=== PATIENT | female | born 1970 | race Caucasian/White ===

== ENCOUNTER 2022-12-17 06:26 | Day surgery (SDC) | payer OTHER, SELFPAY ==
[2022-12-17 06:47] VITALS: BP 143/93; PULSE 62; RESP 20; TEMP 36; O2SAT 97; BMI 47.3
[2022-12-17] MEDS: LACTATED RINGER'S SOLUTION 1,000 ML 50 ML IV (07:10)
--- NOTE | 2022-12-17 07:11 | P.GSPRC_ITS ---
Date of procedure: 12/17/22 Pre-op diagnosis: rectal bleeding Procedure: Colonoscopy with hot snare biopsy ascending colon for polyp less than 5 mm Colonoscopy with biopsy splenic flexure and descending colon rule out colitis Findings: colon polyp descending colon less than 5 mm Diverticulosis of transverse colon minimal Rule out colitis splenic flexure and descending colon Anesthesia: [facility] Surgeon: Gary Cannon Procedure Summary: Patient was taken to the endoscopy suite and given anesthesia by the deputy commonwealth's attorney. The patient was placed in left lateral recumbent position and rectal digital exam was performed. Sphincter tone was found to be normal. No rectal masses were appreciated. The Olympus video colonoscope was advanced under direct visualization into the rectum, sigmoid, descending, transverse, ascending colon to ileocecal valve where the appendiceal lumen was visualized. The scope was slowly withdrawnand biopsies were taken in the splenic flexure and descending colon area to rule out colitis. pictures were taken. She had one single diverticulum in the transverse colon.the scope was then withdrawn and the descending colon there was a small polyp which was hot snared and retrieved and hemostasis maintained. The rest the colon was normal. The scope was retroflexed in the rectum and she had small internal hemorrhoids noted. Specimen was sent to pathology. Patient will need repeat colonoscopy in five years for surveillance pending pathology of the polyp. She may follow-up in the office when necessary. We will call with her results. Indications for Procedure: rectal bleeding Estimated blood loss (mL): 0 Complications: No Condition: stable Disposition: PACU
[2022-12-17 07:58] VITALS: BP 119/83; PULSE 71; RESP 20; TEMP 36.2; O2SAT 94
[2022-12-17 08:18] VITALS: BP 131/85; PULSE 60; RESP 18; O2SAT 99
[2022-12-17 08:28] VITALS: BP 120/86; PULSE 52; RESP 18; O2SAT 95
== END 2022-12-17 08:29 | disposition home or self-care (01) ==
PROVIDERS: PCP Physician Assistant; Visit Provider Surgery
PROC: (CPT 811; principal; 2022-12-17 07:30)
DX: K63.5 Polyp of colon (principal); K62.5 Hemorrhage of anus and rectum; K64.8 Other hemorrhoids; E66.01 Morbid (severe) obesity due to excess calories; Z68.42 Body mass index [BMI] 45.0-49.9, adult; Z98.84 Bariatric surgery status; Z96.651 Presence of right artificial knee joint; F90.9 Attention-deficit hyperactivity disorder, unspecified type; F41.9 Anxiety disorder, unspecified; M19.90 Unspecified osteoarthritis, unspecified site; J44.9 Chronic obstructive pulmonary disease, unspecified; Z85.850 Personal history of malignant neoplasm of thyroid; E89.0 Postprocedural hypothyroidism; I50.9 Heart failure, unspecified; F32.A Depression, unspecified; H91.90 Unspecified hearing loss, unspecified ear; Z86.14 Personal history of Methicillin resistant Staphylococcus aureus infection; G62.9 Polyneuropathy, unspecified; G47.33 Obstructive sleep apnea (adult) (pediatric); Z86.73 Personal history of transient ischemic attack (TIA), and cerebral infarction without residual deficits; Z79.899 Other long term (current) drug therapy; F17.210 Nicotine dependence, cigarettes, uncomplicated
CPT/HCPCS: 45380; 45385; 36415; 88305; J2704

== ENCOUNTER 2022-12-30 11:04 | Outpatient (OUT) | payer OTHER, SELFPAY ==
--- NOTE | 2022-12-30 11:10 | MM_ITS ---
Patient: GABI COOMBS Exam Date: 12/30/2022 : 1970 Gender:F Ordering : MR. Joey Zamudio PA-C Admission #: [id number] Family : Order #: [id number] CLICK HERE TO VIEW EXAM RADIOLOGY REPORT PROCEDURE: MM TOMOSYNTHESIS SCREENING BI COMPARISON: None. INDICATIONS: Screening mammogram Z12.31 Calculator Name NCI Breast Cancer Risk Assessment Tool 5 Year Breast Cancer Risk 1.60% Lifetime Breast Cancer Risk 11.40% Personal Breast Cancer No Personal Ovarian Cancer No Treatments None Family Cancers None LOCATION: [facility] BREAST COMPOSITION: Scattered areas fibroglandular density. FINDINGS: DIAGNOSTIC CATEGORY 1--NEGATIVE. RIGHT BREAST: No significant suspicious finding. LEFT BREAST: No significant suspicious finding. RECOMMENDATIONS: ROUTINE MAMMOGRAM AND CLINICAL EVALUATION IN 12 MONTHS. PLEASE NOTE: A NORMAL MAMMOGRAM DOES NOT EXCLUDE THE POSSIBILITY OF BREAST CANCER. A CLINICALLY SUSPICIOUS PALPABLE LUMP SHOULD BE BIOPSIED. Dictated by: Oli Suárez M.D. on 12/30/2022 at 13:11 Approved by: Oli Suárez M.D. on 12/30/2022 at 13:13
[2022-12-30 12:19] LABS: Estimated Average Glucose 80 mg/dL; Glycohemoglobin A1C 4.4 % (4.5-6.2)
[2022-12-30 12:43] LABS: Basophils Percent Auto 0.3 % (0.2-2.0); Eosinophils Absolute Auto 0.1 10^3/uL (0.0-0.7); Eosinophils Percent Auto 1.6 % (0.9-7.0); Hematocrit 47.7 % (36.0-48.0); Hemoglobin 15.2 g/dL (12.0-16.0); Immature Granulocytes Abs Auto 0.04 10^3/uL (0.00-0.03); Immature Granulocytes Pct Auto 0.6 % (0.0-0.5); Lymphocytes Absolute Auto 2.2 10^3/uL (1.2-3.8); Lymphocytes Percent Auto 33.2 % (20.5-60.0); Mean Corpuscular HGB Conc 31.9 g/dL (29.9-35.2); Mean Corpuscular Hemoglobin 30.6 pg (26.7-34.0); Mean Corpuscular Volume 96.2 fL (81.0-99.0); Mean Platelet Volume 11.4 fL (9.5-13.5); Monocytes Absolute Auto 0.5 10^3/uL (0.3-0.8); Neutrophils Absolute Auto 3.8 10^3/uL (1.4-6.5); Neutrophils Percent Auto 57.3 % (43.0-75.0); Platelet Count 186 10^3/uL (150-450); Red Blood Count 4.96 10^6/uL (4.20-5.40); Red Cell Distribution Width 13.7 % (11.0-15.0); White Blood Count 6.7 10^3/uL (4.0-11.0)
[2022-12-30 13:20] LABS: Chol HDL Ratio 3.5; Cholesterol 172 mg/dL (<=200); HDL Cholesterol 49 mg/dL (40-60); LDL Cholesterol Calculated 98.8 mg/dL; Thyroid Stimulating Hormone 13.066 uIU/mL (0.358-3.740); Triglycerides 121 mg/dL (<=150); VLDL CHOLESTEROL 24.2 mg/dL
[2022-12-31 05:07] LABS: HIV Ab/p24 Ag Screen Non Reactive (Non Reactive)
== END 2022-12-30 11:05 ==
LOC: MAMMO 11:04
PROVIDERS: PCP Physician Assistant; Visit Provider Physician Assistant
DX: Z00.00 Encounter for general adult medical examination without abnormal findings (principal); Z11.4 Encounter for screening for human immunodeficiency virus [HIV]; Z13.6 Encounter for screening for cardiovascular disorders; Z12.31 Encounter for screening mammogram for malignant neoplasm of breast
CPT/HCPCS: 36415; 77063; 77067; 80061; 83036; 84443; 85025; 87389

== ENCOUNTER 2023-09-22 10:19 | Outpatient (OUT) | payer OTHER, SELFPAY ==
--- NOTE | 2023-09-22 10:29 | US_ITS ---
The [address] [address] Patient Name: GABI COOMBS MRN: [id number] date: 1970 Sex: F Assigned Patient Location: US Current Patient Location: Accession/Order Number: [id number] Exam Date: 09/22/2023 10:40 Report Date: 09/22/2023 11:27 At the request of: CATHY HARDIN Procedure: US extremity nonvascular RT EXAM: US extremity nonvascular RT HISTORY: Skin Lump Of Right Arm R22.31 COMPARISON: None. TECHNIQUE: Grayscale and color ultrasound FINDINGS: Ultrasound of the area the patient's palpable abnormality, posterior arm demonstrates normal skin, subcutaneous fat and muscle. No focal ultrasound abnormality US/US extremity nonvascular RT IMPRESSION: No ultrasound abnormality to correspond to the patient's palpable abnormality Electronically authenticated by: MAGNO LOGAN Date: 09/22/2023 11:27
== END 2023-09-22 10:20 | disposition home or self-care (01) ==
LOC: US 10:22
PROVIDERS: PCP Physician Assistant; Visit Provider Physician Assistant
DX: R22.31 Localized swelling, mass and lump, right upper limb (principal)
CPT/HCPCS: 76882

== ENCOUNTER 2023-10-02 14:30 | Emergency (ER) | payer OTHER, SELFPAY ==
[2023-10-02 14:41] VITALS: BP 139/95; PULSE 74; RESP 18; TEMP 36.5; O2SAT 95; BMI 51.4
--- NOTE | 2023-10-02 15:11 | ED_ITS ---
HPI - Abdominal Pain General Chief Complaint: Abdominal Pain Stated Complaint: ABDOMINAL PAIN Time Seen by Provider: 10/02/23 15:05 Source: patient Mode of arrival: walk-in History of Present Illness HPI narrative: Patient is a 53-year-old female who presents to the emergency department with concern for appendicitis from her PCP office. She was instructed to come to the emergency department about 6 hours ago after being evaluated in the office, but she states she wanted to wait for her significant other to get home so they would not have to leave a car at the hospital if you keep me . She states for the last week she has had pain in the right lower quadrant without radiation. She has chronic back pain that is not worse or different today. She has not had any fevers. She reports hot and cold chills. No urinary symptoms or diarrhea. She denies any episodes of vomiting. She has had previous gastric bypass as well as previous surgery. No medications taken prior to arrival. Related Data Home Medications ?Medication ?Instructions ?Recorded ?Confirmed Cholecalciferol 2,000 unit PO DAILY 12/12/22 12/17/22 albuterol 90 mcg/actuation aerosol 90 mcg inhalation .every 6 hours 12/12/22 12/17/22 inhaler PRN shortness of breath or wheezing dicyclomine 20 mg tablet 20 mg PO DAILY 12/12/22 12/17/22 doxepin 10 mg capsule 10 mg PO DAILY 12/12/22 12/17/22 gabapentin 600 mg tablet 600 mg PO TID 12/12/22 12/17/22 hydroxyzine pamoate 25 mg capsule 25 mg PO DAILY 12/12/22 12/17/22 (Vistaril) levothyroxine 200 mcg tablet 200 mcg PO DAILY 12/12/22 12/17/22 (Levo-T) mometasone-formoterol HFA 200 2 inh inhalation Q12H 12/12/22 12/17/22 mcg-5 mcg/actuation aerosol inhaler (Dulera) multivitamin 1 tab PO DAILY 12/12/22 12/17/22 oxybutynin chloride 15 mg 15 mg PO DAILY 12/12/22 12/17/22 tablet,extended release 24 hr sertraline 50 mg tablet 50 mg PO DAILY 12/12/22 12/17/22 sumatriptan succinate 6 mg/0.5 mL 6 mg subcut ONCE PRN migraine 12/12/22 12/17/22 subcutaneous syringe headache tiotropium bromide 2.5 2 inh inhalation DAILY 12/12/22 12/17/22 mcg/actuation mist for inhalation (Spiriva Respimat) vitamin B complex PO DAILY 12/12/22 Previous Rx's ?Medication ?Instructions ?Recorded hyoscyamine sulfate 0.125 mg 0.125 mg PO Q6H PRN abdominal pain 10/02/23 tablet (Levsin) #12 tabs Allergies Allergy/AdvReac Type Severity Reaction Status Date / Time Bleach (Sodium Hypochlorite) Allergy Severe Difficulty Verified 12/17/22 07:04 Breathing adhesive tape Allergy Verified 12/17/22 07:04 amoxicillin Allergy Rash Verified 12/17/22 07:04 ibuprofen [From Motrin] Allergy Verified 12/17/22 07:04 ciprofloxacin AdvReac Vomiting Verified 12/17/22 07:04 ketorolac [From Toradol] AdvReac Vomiting Verified 12/17/22 07:04 Review of Systems ROS Constitutional Reports: chills; Denies: fever Ears, nose, mouth, and throat Denies: throat pain or nasal congestion Cardiovascular Denies: chest pain Respiratory Denies: shortness of breath or cough Gastrointestinal Reports: abdominal pain; Denies: nausea, vomiting or diarrhea Genitourinary Denies: painful urination Musculoskeletal Reports: back pain Integumentary/Breast Denies: rash Neurological Denies: headache Hematologic/Lymphatic Denies: easy bruising or easy bleeding [facility] Medical History (Updated 10/02/23 @ 17:45 by GUILLERMO Guzman) Fusion of lumbar spine ?M43.26 - Fusion of spine, lumbar region (ICD-10) Memory loss ?R41.3 - Other amnesia (ICD-10) TIA (transient ischemic attack) ?G45.9 - Transient cerebral ischemic attack, unspecified (ICD-10) Sleep apnea ?G47.30 - Sleep apnea, unspecified (ICD-10) STD (sexually transmitted disease) ?A64 - Unspecified sexually transmitted disease (ICD-10) Back injury ?S39.92XA - Unspecified injury of lower back, initial encounter (ICD-10) MRSA (methicillin resistant Staphylococcus aureus) infection ?A49.02 - Methicillin resistant Staphylococcus aureus infection, unspecified site (ICD-10) Menopause ?Z78.0 - Asymptomatic menopausal state (ICD-10) Neuropathy ?G62.9 - Polyneuropathy, unspecified (ICD-10) Personality disorder ?F60.9 - Personality disorder, unspecified (ICD-10) Disorder of teeth and supporting structures ?K08.9 - Disorder of teeth and supporting structures, unspecified (ICD-10) ADHD ?F90.9 - Attention-deficit hyperactivity disorder, unspecified type (ICD-10) Hearing loss ?H91.90 - Unspecified hearing loss, unspecified ear (ICD-10) Rectal bleeding ?K62.5 - Hemorrhage of anus and rectum (ICD-10) Migraine ?G43.909 - Migraine, unspecified, not intractable, without status migrainosus (ICD-10) Malignant tumor of thyroid gland ?C73 - Malignant neoplasm of thyroid gland (ICD-10) Enlarged liver ?R16.0 - Hepatomegaly, not elsewhere classified (ICD-10) Hypothyroidism ?E03.9 - Hypothyroidism, unspecified (ICD-10) Depression ?F32.A - Depression, unspecified (ICD-10) Congestive heart failure ?I50.9 - Heart failure, unspecified (ICD-10) Carpal tunnel syndrome ?G56.00 - Carpal tunnel syndrome, unspecified upper limb (ICD-10) Cardiomyopathy ?I42.9 - Cardiomyopathy, unspecified (ICD-10) COPD (chronic obstructive pulmonary disease) ?J44.9 - Chronic obstructive pulmonary disease, unspecified (ICD-10) Back pain ?M54.9 - Dorsalgia, unspecified (ICD-10) Asthma ?J45.909 - Unspecified asthma, uncomplicated (ICD-10) Arthritis ?M19.90 - Unspecified osteoarthritis, unspecified site (ICD-10) Anxiety ?F41.9 - Anxiety disorder, unspecified (ICD-10) Anemia ?D64.9 - Anemia, unspecified (ICD-10) Surgical History (Updated 12/12/22 @ 11:40 by Kyung Hung) H/O total thyroidectomy ?E89.0 - Postprocedural hypothyroidism (ICD-10) History of tonsillectomy ?Z90.89 - Acquired absence of other organs (ICD-10) S/P lumpectomy of breast ?Z98.890 - Other specified postprocedural states (ICD-10) H/O hemorrhoidectomy ?Z98.890 - Other specified postprocedural states (ICD-10) History of endometrial ablation ?Z98.890 - Other specified postprocedural states (ICD-10) Previous section ?Z98.891 - History of uterine scar from previous surgery (ICD-10) History of gastric bypass ?Z98.84 - Bariatric surgery status (ICD-10) History of tubal ligation ?Z98.51 - Tubal ligation status (ICD-10) History of arthroplasty of right knee ?Z96.651 - Presence of right artificial knee joint (ICD-10) Family History (Updated 12/12/22 @ 10:40 by Kyung Hung) Other Heart disease Social History Within the past year, how often did you have a drink containing alcohol: never Score interpretation: A score less than 3 is consistent with normal alcohol consumption. Smoking status: Current every day smoker Highest level of school completed/degree received: high school graduate Exam Narrative Exam Narrative: Gen.: Awake, alert, in no distress Head: Normocephalic, atraumatic ENT: Moist mucous membranes Respiratory: No respiratory distress, lungs clear bilaterally Cardio: Regular rate and rhythm Gastrointestinal: Abdomen is soft, nondistended and Obese, tender to palpation in the right lower quadrant with no guarding or rebound Extremities: Moves extremities equally Psych: Normal mood and affect Neuro: No focal neuro deficit Skin: Warm, dry, intact Constitutional Vital Signs, click to edit/add: Last Vital Signs Temp 97.7 F 10/02/23 14:41 Pulse 74 10/02/23 14:41 Resp 18 10/02/23 14:41 BP 139/95 H 10/02/23 14:41 Pulse Ox 95 10/02/23 14:41 O2 Del Method Room Air 10/02/23 14:41 Course Vital Signs Vital signs: Vital Signs Temperature 97.7 F 10/02/23 14:41 Pulse Rate 74 10/02/23 14:41 Respiratory Rate 18 10/02/23 14:41 Blood Pressure 139/95 H 10/02/23 14:41 Pulse Oximetry 95 10/02/23 14:41 Oxygen Delivery Method Room Air 10/02/23 14:41 Temperature 97.7 F 10/02/23 14:41 Pulse Rate 74 10/02/23 14:41 Respiratory Rate 18 10/02/23 14:41 Blood Pressure 139/95 H 10/02/23 14:41 Pulse Oximetry 95 10/02/23 14:41 Oxygen Delivery Method Room Air 10/02/23 14:41 MDM - Abdominal Pain MDM Narrative Medical decision making narrative: Patient medicated with IV fluids, pain medication and nausea medication. Labs show no evidence of leukocytosis or other acute abnormalities. Urine specimen is negative and CT of the abdomen and pelvis shows the patient has no evidence of acute abnormality or appendicitis. She is discharged home to follow-up with PCP. Return to the ER if symptoms change or worsen Medical Records Attestation: I reviewed the patient's medical records. Lab Data Attestation: I reviewed the patient's lab results. Labs: Lab Results 10/02/23 10/02/23 Range/Units 15:12 17:05 WBC 9.2 (4.0-11.0) 10^3/uL RBC 4.60 (4.20-5.40) 10^6/uL Hgb 14.2 (12.0-16.0) g/dL Hct 45.6 (36.0-48.0) % MCV 99.1 H (81.0-99.0) fL MCH 30.9 (26.7-34.0) pg MCHC 31.1 (29.9-35.2) g/dL RDW 14.5 (11.0-15.0) % Plt Count 209 (150-450) 10^3/uL MPV 11.5 (9.5-13.5) fL Neut % (Auto) 65.5 (43.0-75.0) % Lymph % (Auto) 27.7 (20.5-60.0) % [place] % (Auto) 4.8 (1.7-12.0) % Eos % (Auto) 1.3 (0.9-7.0) % Baso % (Auto) 0.2 (0.2-2.0) % Neut # (Auto) 6.0 (1.4-6.5) 10^3/uL Lymph # (Auto) 2.6 (1.2-3.8) 10^3/uL [place] # (Auto) 0.4 (0.3-0.8) 10^3/uL Eos # (Auto) 0.1 (0.0-0.7) 10^3/uL Baso # (Auto) 0.0 (0.0-0.1) 10^3/uL Abs Immat Gran (auto) 0.05 H (0.00-0.03) 10^3/uL Imm/Tot Granulo (auto) 0.5 (0.0-0.5) % Sodium 141 (136-145) mmol/L Potassium 3.7 (3.5-5.1) mmol/L Chloride 106 (98-107) mmol/L Carbon Dioxide 28.7 (21.0-32.0) mmol/L Anion Gap 10.0 BUN 18.0 (7.0-18.0) mg/dL Creatinine 0.96 (0.55-1.02) mg/dL Est GFR ( Amer) >60 (>=60) Est GFR (Non-Af Amer) >60 (>=60) BUN/Creatinine Ratio 18.8 Glucose 96 (74-106) mg/dL Lactate 1.3 (0.4-2.0) mmol/L Calcium 8.2 L (8.5-10.1) mg/dL Total Bilirubin 0.3 (0.2-1.0) mg/dL AST 18 (15-37) U/L ALT 22 (14-59) U/L Alkaline Phosphatase 126 H (46-116) U/L Troponin I High Sens <4.0 L (4.0-51.3) pg/mL Total Protein 7.0 (6.4-8.2) g/dL Albumin 3.5 (3.4-5.0) g/dL Globulin 3.5 g/dL Albumin/Globulin Ratio 1.0 Lipase 20.0 (16.0-77.0) U/L Serum HCG, Qual Negative (NEGATIVE) Urine Color Yellow (YELLOW) Urine Clarity Clear (CLEAR) Urine pH 5.5 (5.0-9.0) Ur Specific [place] 1.015 (1.005-1.025) Urine Protein Negative (NEG/TRACE) mg/dL Urine Glucose (UA) Negative (NEGATIVE) mg/dL Urine Ketones Negative (NEGATIVE) mg/dL Urine Occult Blood Negative (NEGATIVE) Urine Nitrite Negative (NEGATIVE) Urine Bilirubin Negative (NEGATIVE) Urine Urobilinogen 0.2 (0.2-1.0) EU/dL Ur Leukocyte Esterase Negative (NEGATIVE) Imaging Data CT scan - abdomen: Attestation: I have reviewed the pertinent imaging results. Radiologist's impression: ITS Impressions Abdomen/Pelvis CT 10/02/23 16:42 IMPRESSION: No acute findings. No findings of appendicitis. Indeterminate 2.4 cm right adrenal nodule, most likely adenoma. Suspect cirrhotic morphology. Electronically authenticated by: SHAYLEE RUBIO Date: 10/02/2023 17:09 Discharge Plan Discharge Stand Alone Forms: Portal Instructions Chief Complaint: Abdominal Pain Clinical Impression: Abdominal pain Patient Disposition: Home, Self-Care Time of Disposition Decision: 17:44 Condition: Good Prescriptions / Home Meds: New hyoscyamine sulfate [Levsin] 0.125 mg tablet 0.125 mg PO Q6H PRN (Reason: abdominal pain) Qty: 12 0RF No Action albuterol 90 mcg/actuation aerosol 90 mcg inhalation .every 6 hours PRN (Reason: shortness of breath or wheezing) sertraline 50 mg tablet 50 mg PO DAILY oxybutynin chloride 15 mg tablet extended release 24hr 15 mg PO DAILY levothyroxine [Levo-T] 200 mcg tablet 200 mcg PO DAILY hydroxyzine pamoate [Vistaril] 25 mg capsule 25 mg PO DAILY Spiriva Respimat 2.5 mcg/actuation mist 2 inh inhalation DAILY vitamin B complex [B Complex-Vitamin B12] PO DAILY Cholecalciferol 2,000 unit PO DAILY dicyclomine 20 mg tablet 20 mg PO DAILY doxepin 10 mg capsule 10 mg PO DAILY Dulera 200-5 mcg/actuation HFA aerosol inhaler 2 inh inhalation Q12H gabapentin 600 mg tablet 600 mg PO TID multivitamin Tablet 1 tab PO DAILY sumatriptan succinate 6 mg/0.5 mL syringe 6 mg subcut ONCE PRN (Reason: migraine headache) Patient Comments: may repeat dose in 1 hour if needed Print Language: Montenegrin Instructions: Acute Abdominal Pain (ED) Referrals: Joey Zamudio [Primary Care Provider] - 1 week Discharge Date/Time: 10/02/23 17:50
[2023-10-02] MEDS: HYDROMORPHONE HCL 1 MG/ML CARTRIDGE IVP (15:20)
[2023-10-02] MEDS: ONDANSETRON PF 4 MG/2 ML VIAL IV (15:20)
[2023-10-02] MEDS: 0.9 % SODIUM CHLORIDE 1,000 ML 999 ML IV (15:21)
[2023-10-02 15:47] LABS: Alanine Aminotransferase 22 U/L (14-59); Albumin Level 3.5 g/dL (3.4-5.0); Alkaline Phosphatase 126 U/L (46-116); Aspartate Amino Transferase 18 U/L (15-37); BUN Creatinine Ratio 18.8; Bilirubin Total 0.3 mg/dL (0.2-1.0); Calcium 8.2 mg/dL (8.5-10.1); Carbon Dioxide 28.7 mmol/L (21.0-32.0); Chloride 106 mmol/L (98-107); Estimated GFR (African America >60 (>=60); Estimated GFR (Non-African Ame >60 (>=60); Globulin 3.5 g/dL; Glucose 96 mg/dL (74-106); Lactate/Lactic Acid 1.3 mmol/L (0.4-2.0); Potassium 3.7 mmol/L (3.5-5.1); Sodium 141 mmol/L (136-145); Troponin I High Sensitivity <4.0 pg/mL (4.0-51.3)
[2023-10-02 15:48] LABS: HCG Qualitative NEGATIVE (NEGATIVE)
[2023-10-02 16:12] LABS: Basophils Percent Auto 0.2 % (0.2-2.0); Eosinophils Absolute Auto 0.1 10^3/uL (0.0-0.7); Eosinophils Percent Auto 1.3 % (0.9-7.0); Hematocrit 45.6 % (36.0-48.0); Hemoglobin 14.2 g/dL (12.0-16.0); Immature Granulocytes Abs Auto 0.05 10^3/uL (0.00-0.03); Immature Granulocytes Pct Auto 0.5 % (0.0-0.5); Lymphocytes Absolute Auto 2.6 10^3/uL (1.2-3.8); Lymphocytes Percent Auto 27.7 % (20.5-60.0); Mean Corpuscular HGB Conc 31.1 g/dL (29.9-35.2); Mean Corpuscular Hemoglobin 30.9 pg (26.7-34.0); Mean Corpuscular Volume 99.1 fL (81.0-99.0); Mean Platelet Volume 11.5 fL (9.5-13.5); Monocytes Absolute Auto 0.4 10^3/uL (0.3-0.8); Monocytes Percent Auto 4.8 % (1.7-12.0); Neutrophils Percent Auto 65.5 % (43.0-75.0); Platelet Count 209 10^3/uL (150-450); Red Cell Distribution Width 14.5 % (11.0-15.0); White Blood Count 9.2 10^3/uL (4.0-11.0)
--- NOTE | 2023-10-02 16:42 | CT_ITS ---
[address] [address] Patient Name: GABI COOMBS MRN: [id number] date: 1970 Sex: F Assigned Patient Location: ER Current Patient Location: ER Accession/Order Number: [id number] Exam Date: 10/02/2023 16:42 Report Date: 10/02/2023 17:09 At the request of: TIFFANY CEBALLOS Procedure: CT abdomen pelvis w con EXAMINATION: CT abdomen pelvis w con, 10/02/2023 1:42 PM PDT HISTORY: acute appendicitis COMPARISON: None. TECHNIQUE: CT scan of the abdomen and pelvis was performed with IV contrast. CT dose reduction technique was used, including Automated Exposure Control. FINDINGS: Lung: No significant finding. Liver: Suspect subtle contour nodularity. Tiny left hepatic lobe hypodensity, most likely cyst. Gallbladder: Absent. Spleen: No significant finding. Pancreas: No significant finding. Adrenal glands: 2.4 cm right adrenal nodule, indeterminate. Kidneys, ureters and bladder: No hydronephrosis. Bladder is unremarkable. Bowel: Surgical changes from gastric bypass. No focal inflammatory change. No evidence of bowel obstruction. Colonic diverticulosis without diverticulitis. No findings of appendicitis. Peritoneum/retroperitoneum: No significant finding. Lymph nodes: No significant finding. Vessels: No significant finding. Body wall: Surgical changes. Reproductive: No significant finding. Bones: L4-L5 fusion hardware. CT/CT abdomen pelvis w con IMPRESSION: No acute findings. No findings of appendicitis. Indeterminate 2.4 cm right adrenal nodule, most likely adenoma. Suspect cirrhotic morphology. Electronically authenticated by: SHAYLEE RUBIO Date: 10/02/2023 17:09
[2023-10-02 17:39] LABS: Bilirubin Urine NEGATIVE (NEGATIVE); Blood Urine NEGATIVE (NEGATIVE); Clarity Urine CLEAR (CLEAR); Color Urine YELLOW (YELLOW); Glucose Urine UA NEGATIVE (NEGATIVE); Ketones Urine NEGATIVE (NEGATIVE); Leukocyte Esterase Urine NEGATIVE (NEGATIVE); Nitrite Urine NEGATIVE (NEGATIVE); Protein Urine NEGATIVE (NEG/TRACE); Specific Gravity Urine 1.015 (1.005-1.025); Urobilinogen Urine 0.2 EU/dL (0.2-1.0); pH Urine 5.5 (5.0-9.0)
[2023-10-02 17:40] LABS: Urine Microscopic Indicated NO
== END 2023-10-02 17:50 | disposition home or self-care (01) ==
PROVIDERS: Physician Assistant; Emergency Provider Emergency Medicine; PCP Physician Assistant
DX: R10.9 Unspecified abdominal pain (principal); E89.0 Postprocedural hypothyroidism; F60.9 Personality disorder, unspecified; F90.9 Attention-deficit hyperactivity disorder, unspecified type; H91.90 Unspecified hearing loss, unspecified ear; F17.210 Nicotine dependence, cigarettes, uncomplicated; J44.9 Chronic obstructive pulmonary disease, unspecified; F32.A Depression, unspecified; I50.9 Heart failure, unspecified; M19.90 Unspecified osteoarthritis, unspecified site; F41.9 Anxiety disorder, unspecified; Z98.84 Bariatric surgery status; Z79.899 Other long term (current) drug therapy; Z79.890 Hormone replacement therapy; Z98.1 Arthrodesis status; Z86.73 Personal history of transient ischemic attack (TIA), and cerebral infarction without residual deficits; Z86.14 Personal history of Methicillin resistant Staphylococcus aureus infection; Z85.850 Personal history of malignant neoplasm of thyroid; Z98.891 History of uterine scar from previous surgery; Z98.890 Other specified postprocedural states; Z90.89 Acquired absence of other organs
CPT/HCPCS: 36415; 74177; 80053; 81003; 83605; 83690; 84484; 84703; 85025; 96374; 96375; 99285; J1170; Q9966; Q9967

== ENCOUNTER 2023-11-24 16:20 | Outpatient (OUT) | payer OTHER, SELFPAY ==
[2023-11-24 16:43] LABS: Hematocrit 41.6 % (36.0-48.0); Hemoglobin 13.4 g/dL (12.0-16.0); Mean Corpuscular HGB Conc 32.2 g/dL (29.9-35.2); Mean Corpuscular Hemoglobin 31.4 pg (26.7-34.0); Mean Corpuscular Volume 97.4 fL (81.0-99.0); Platelet Count 206 10^3/uL (150-450); Red Blood Count 4.27 10^6/uL (4.20-5.40); Red Cell Distribution Width 13.7 % (11.0-15.0); White Blood Count 8.6 10^3/uL (4.0-11.0)
[2023-11-24 17:06] LABS: Anion Gap 8.9; Calcium 8.6 mg/dL (8.5-10.1); Carbon Dioxide 31.8 mmol/L (21.0-32.0); Chloride 105 mmol/L (98-107); Estimated GFR (African America >60 (>=60); Estimated GFR (Non-African Ame >60 (>=60); Glucose 95 mg/dL (74-106); Potassium 3.7 mmol/L (3.5-5.1); Sodium 142 mmol/L (136-145); TSH W/ REFLEX FT4 39.557 uIU/mL (0.358-3.740)
[2023-11-24 17:24] LABS: Free T4 0.48 ng/dL (0.76-1.46)
== END 2023-11-24 16:21 | disposition home or self-care (01) ==
LOC: LAB 16:23
PROVIDERS: PCP Nurse Practitioner; Visit Provider Nurse Practitioner
DX: E03.9 Hypothyroidism, unspecified (principal); K92.1 Melena
CPT/HCPCS: 36415; 80048; 84439; 84443; 85027

== ENCOUNTER 2023-11-24 21:18 | Outpatient (REF) | payer OTHER, SELFPAY ==
--- OUTSIDE RECORDS SUMMARY | 2023-11-24 21:27 | XMS_ITS | CCD ---
Author Organization [facility] Care Team Providers Care Edger Operator Name Role Phone BRICE, KANCHAN F Referring Unavailable ZAMUDIO, CATHY A Primary Care Unavailable MOOSA, KANCHAN F Referring Unavailable ZAMUDIO, CATHY A Primary Care Unavailable MOOSA, KANCHAN F Referring Unavailable ZAMUDIO, CATHY A Primary Care Unavailable MOOSA, KANCHAN F Referring Unavailable ZAMUDIO, CATHY A Primary Care Unavailable MOOSA, KANCHAN F Referring Unavailable ZAMUDIO, CATHY A Primary Care Unavailable MOOSA, KANCHAN F Referring Unavailable JUAREZ CORADO S Primary Care Unavailable MOOSA, KANCHAN F Referring Unavailable ZAMUDIO, CATHY A Primary Care Unavailable GRILLIKrystina ., DR MYLES Roy Attending Unavaila ble GRILLIS ., DR MYLES Roy Admitting Unavaila ble Allergies Allergy Classification Reported Allergen(s) Allergy Type Date of Onset Reaction(s) Facility (1 source) Ibuprofen Drug Allergy [facility] Problems Problem Classification Problem Date Documented Da te Episodic/Chronic Cancer of thyroid (3 sources) Malignant neoplasm of thyroid gland; Translations: [Malignant neoplasm of thyroid gland] Onset: 10-11-2018 Chronic Thyroid disorders (2 sources) Nontoxic multinodular goiter; Translations: [Nontoxic multinodular goiter] Onset: 10-12-2018 Chronic Unclassified (2 sources) 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; Translations: [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] Onset: 10-13-2018 Unclassified (2 sources) No malignancy identified; Translations: [No malignancy identified] Onset: 10-13-2018 Results Test Name Value Interpretation Reference Range Facil ity Coding Summaryon 02-24-2019 Coding Summary CODING DATE: 02/24/2019 [facility] STATUS: Home PAYOR: Medicaid HMO ADMIT DX: REASON FOR VISIT DX: H57.11 Ocular pain, right eye FINAL DX: PRINCIPAL: T15.01XA Foreign body in cornea, right eye, initial encounter SECONDARY: PYMT PROC APC STAT DESCRIPTION DOCTOR NAME DATE NOTE: The code number assigned matches the documented diagnosis and / or procedure in the patient's chart. However, the narrative phrase printed from the coding software may appear abbreviated, or result in slightly different terminology. Coded By: Oanh Mchugh Date Saved: 02/24/2019 03:05 pm [facility] Coding Summary CODING DATE: 02/24/2019 [facility] STATUS: Home PAYOR: Medicaid HMO ADMIT DX: REASON FOR VISIT DX: H57.11 Ocular pain, right eye FINAL DX: PRINCIPAL: T15.01XA Foreign body in cornea, right eye, initial encounter SECONDARY: PYMT PROC APC STAT DESCRIPTION DOCTOR NAME DATE NOTE: The code number assigned matches the documented diagnosis and / or procedure in the patient's chart. However, the narrative phrase printed from the coding software may appear abbreviated, or result in slightly different terminology. Revised Coded By: Oanh Mchugh Revised Date Saved: 02/24/2019 03:02 pm [facility] Thyroglobulinon 02-01-2019 Thyroglobulin <0.2 Normal 0.0-63.4 [facility] Comment on above: Result Comment: Thyr oglobulin (Tg) is measured by the Siemens Immulite 2000 method, which has a lower limit of quantification of 0.2 ng/mL. Tg results less than 0.2 ng/mL are consistent with the absence of thyroglobulin-producing thyroid tissue. Results obtained with any different assay methods or kits cannot be used interchangeably. Performed By: #### F T4, TSH #### [facility] [address] [place], [place] [id number] Communication Spec: Lincoln Ding DO #### VD25, THYGLA, THYGL #### [facility] [address] [place] [address] Communication Spec: Ron Adorno MD Thyroglobulin Abon 9 Thyroglobulin Ab Qn [IU]/mL Normal 0.0-40.0 [facility] Comment on above: Performed By: #### F T4, TSH #### [facility] [address] [place] [address] Communication Spec: Lincoln Ding DO #### VD25, THYGLA, THYGL #### [address] [address] Communication Spec: Ron Adorno MD Vitamin D 25 OHon 02-01-2019 Vitamin D 25 [place] 29.1 ng/mL Low 30.0-100.0 [facility] Comment on above: Result Comment: Reference Range: Vitamin D status Range Deficiency <20 ng/mL Mild Deficiency 20-30 ng/mL Sufficiency 30-100 ng/mL Toxicity >100 ng/mL Performed By: #### F T4, TSH #### [facility] [address] [place] [id number] Communication Spec: Lincoln Ding DO #### VD25, THYGLA, THYGL #### [address] [address] Communication Spec: Ron Adorno MD Thyroid Stim. Horm.on 2018 TSH Qn m[IU]/L Low 0.30-5.00 [facility] Comment on above: Performed By: #### F T4, TSH #### [facility] [address] [place] [address] Communication Spec: Lincoln Ding DO #### VD25, THYGLA, THYGL #### [address] [address] Communication Spec: Ron Adorno MD Thyroxine, Freeon 01-31-2019 Thyroxine, Free 1.70 ng/dL Normal 0.93-1.70 [facility] Comment on above: Performed By: #### F T4, TSH #### [facility] [place] [address] Communication Spec: Lincoln Ding DO #### VD25, THYGLA, THYGL #### [facility] [address] [place] [address] Communication Spec: Ron Adorno MD Coding Queryon 01-05-2019 Coding Query Can you please finalize your chart when your documentation is complete? Thanks. [Electronically Signed on: 02/24/2019 07:49 EDT] Nolan Zheng DO [Verified on: 02/24/2019 07:49 EDT] Nolan Zheng DO [Transcribed on: 01/05/2019 15:14 EDT] [facility] ED Clinical Summaryon 2018 ED Clinical Summary [facility] - Emergency Department [address] [place] [id number] ED Clinical Summary PERSON INFORMATION Name: GABI COOMBS Age: 48 Years Sex: FEMALE : [birth year] MRN: Acct#: Visit Reason: Eye pain; Eye problem; C/O BURN EYE, PAIN RIGHT EYE Arrival: 01/02/19 21:08:00 Discharge: 01/02/19 22:15:00 LOS: 000 01:07 Check In: 01/02/19 21:08:00 Checkout:01/02/19 22:15:00 Address: [address] [place] [id number] PCP: Juarez Corado PROVIDER INFORMATION Provider Role Assigned Unassigned Lincoln SAUCEDO, Cher ED Nurse 01/02/19 21:13:08 Nolan Zheng DO ED Provider 01/02/19 21:31:29 VITALS INFORMATION Vital Sign Triage Latest Temperature Tympanic Temperature Temporal Artery Pulse Rate 83 bpm 83 bpm O2 Sat 100 % 100 % Respiratory Rate 18 br/min 18 br/min Blood Pressure 100 mmHg/75 mmHg 100 mmHg/75 mmHg MEDICAL INFORMATION Medications Given: Allergy Information: sulfa drug; ketorolac; amoxicillin; ibuprofen; bleach; time release capsule PHYSICIAN DOCUMENTATION DISCHARGE INFORMATION: Discharge Disposition: Home Discharge Location: Home PATIENT EDUCATION INFORMATION Instructions: Eye Foreign Body, [facility] Follow-Up: With: Address: When: MAGNO GOOD [address] [place], [place] [id number] [employer] ([employer] In 1 day 01/03/19 Comments: home use ointment in the eye every 4-6 hours the irritation will slowly disappear call Dr Good's office--or eye physician of your choice--in the am 9 am for a recheck apt you are welcomed to return anytime mary zheng, joann physician, leonel saravia DIAGNOSIS: Eye foreign body Patient Understands: Yes - Patient/family/careg iver verbalizes understanding of instructions given Comment: [facility] ED Patient Education Noteon 01-03-2019 ED Patient Education Note Education Materials Emergency Medicine Eye Foreign Body A foreign body is an object on or in the eye that should not be there. It could be a speck of dirt or dust, a hair, an eyelash, a splinter, or any other object. It can be on the outside of the eyeball (extraocular) or inside the eyeball. If the object is on the outside of the eyeball, it can usually be washed out or taken out by your doctor. An object inside the eyeball is an emergency, and it must be treated with surgery. Follow these instructions at home: ? Take ajju-uej-kmoxmhi and prescription medicines only as told by your doctor. Use eye drops or ointment as told. ? If you were prescribed antibiotic drops or ointment, use it as told by your doctor. Do not stop using it even if you start to feel better. ? If you have a bandage on your eye (eye shield): ? Wear it as told. Follow instructions from your doctor about when to take it off. ? Do not drive or use heavy machinery while wearing the bandage. ? If you do not have a bandage on your eye: ? Keep your eye closed as much as possible. ? Do not rub your eye. ? Wear dark glasses in bright light. ? Do not wear contact lenses until your eye feels normal, or as told by your doctor. ? If you are doing activities with a high risk of eye injury, such as using high-speed tools, wear protective eye covering. ? Keep all follow-up visits as told by your doctor. This is important. Contact a doctor if: ? You have more pain in your eye. ? You have problems with your eye bandage. ? You have abnormal fluid (discharge) coming from your eye. Get help right away if: ? Your ability to see (vision) gets worse. ? You have more redness and swelling in or around your eye. Summary ? A foreign body is an object on or in the eye that should not be there. ? An object on the outside of the eyeball can usually be washed out or taken out by your doctor. An object inside the eyeball is an emergency. ? If you have a bandage on your eye (eye shield), do not drive while wearing it. ? If you have more pain in your eye, contact your doctor. This information is not intended to replace advice given to you by your health care provider. Make sure you discuss any questions you have with your health care provider. Document Released: 12/17/2010 Document Revised: 07/15/2017 Document Reviewed: 07/15/2017 [employer] Patient Education ? 2019 [employer]. Normal [facility] ED Patient Summaryon 019 ED Patient Summary [facility] - Emergency Department [address] [place] [address] PATIENT DISCHARGE INSTRUCTIONS Patient Information Name: GABI COOMBS Age: 48 Years Date of : [birth year] Reason For Visit: Eye pain; Eye problem; C/O BURN EYE, PAIN RIGHT EYE Arrival Time: 01/02/19 21:08:00 Primary Care Physician: Juarez Corado Attending Physician: Nolan Zheng DO Comment: Visit Diagnosis: Diagnoses This Visit Eye foreign body (T15.90XA) Eye pain ([id number]) Eye problem ([id number]) Prescription Information: If you have been given a prescription for narcotics, seek immediate medical attention if you have any difficulty breathing or any sudden status changes such as confusion and sleepiness. If you or anyone you know is experiencing suicidal thoughts, mental health, alcohol and/or drug addiction problems; contact the [facility] 02/02 Crisis Hotline -Text 4HVAY km 698513. If you received any narcotics, sedation, or any other medication that causes drowsiness for the next 24 hours, unless otherwise directed: ? Do not drive a car. ? Do not operate machinery such as power tools, lawn mowers, drills, sewing machines, or stoves ? Avoid alcoholic beverages and drugs for allergies, nerves, or sleep ? Do not make important personal or business decisions or sign any legal documents With: Address: When: MAGNO GOOD [address] [place], [place] [id number] Business (1) In 1 day 01/03/19 Comments: home use ointment in the eye every 4-6 hours the irritation will slowly disappear call Dr Good's office--or eye physician of your choice--in the am 9 am for a recheck apt you are welcomed to return anytime mary zheng, joann physician, leonel saravia Medication Information: The exam and treatment you received today in the [facility] Emergency Department were for an urgent problem and are not intended as complete care. It is important for you to follow up with a doctor, nurse practitioner, or physician?s surveyor's assistant for ongoing care. If your symptoms become worse or you do not improve as expected and you are unable to reach your usual health care provider, you should return to the Emergency Department, we are available 24 hours a day. For those patients who have received Radiology results, the interpretation of your X-ray as given to you by our Emergency Department physician is only a preliminary report. The Radiologist will review your films and if there is a change in the diagnosis you will be notified by phone. Please make sure you have provided a working phone number so we can reach you if necessary. In the event that you had a lab culture while you were a patient in the Emergency Department, you will be notified by phone if there is a need to change your antibiotic. Please make sure you have provided a working phone number so we can reach you if necessary. [facility] Emergency Department has provided you with a complete list of medications post discharge. Please inform your electronic commerce specialist/provider of your visit and for further instruction on these medications. Any specific questions regarding your chronic medications and dosages should be discussed with your primary care physician(s) and/or pharmacist. Medications to Continue That Have Not Changed Other Medications albuterol (Ventolin HFA 90 mcg/inh inhalation aerosol) 2 puff(s) Inhalation 4 times a day as needed for wheezing. buPROPion (buPROPion 200 mg/12 hours (SR) oral tablet, extended release) 1 tab(s) Oral every day. busPIRone (busPIRone 5 mg oral tablet) 1 tab(s) Oral 3 times a day. calcium-vitamin D (calcium (as carbonate)-vitamin D 600 mg-400 intl units oral tablet) 1 tab(s) Oral 2 times a day. cyclobenzaprine (Flexeril) 10 Milligram Oral 3 times a day. ergocalciferol (Vitamin D2 50,000 intl units (1.25 mg) oral capsule) 1 cap(s) Oral Thursday, Thursday and Thursday. formoterol-mometason e (Dulera 100 mcg-5 mcg/inh inhalation aerosol) 2 puff(s) Inhalation 2 times a day as needed shortness of breath or wheezing. gabapentin (gabapentin 600 mg oral tablet) 1 tab(s) Oral 3 times a day. guanFACINE (guanFACINE 1 mg oral tablet) 1 tab(s) Oral 3 times a day. lamoTRIgine (lamoTRIgine 100 mg oral tablet) 3 tab(s) Oral once a day (at bedtime). levothyroxine (levothyroxine 25 mcg (0.025 mg) oral capsule) 1 cap(s) Oral every day. SUMAtriptan (Imitrex 6 mg/0.5 mL subcutaneous solution) 0.5 Milliliter Subcutaneous once as needed as needed for migraine headache. Refills: 4. SUMAtriptan (SUMAtriptan 100 mg oral tablet) 1 tab(s) Oral every day as needed as needed for migraine headache. topiramate (Topamax 100 mg oral tablet) 1 tab(s) Oral 2 times a day. venlafaxine (venlafaxine 75 mg oral tablet) 1 tab(s) Oral 2 times a day. Visit Information Allergies: Substance Reaction Symptoms Type Comments bleach amoxicillin Drug ibuprofen Drug ketorolac Drug sulfa drug Drug time release capsule Drug Vital Signs: Vitals and Measurements this Visit (last charted value for your 01/02/2019 visit) Vital Signs This Visit Temperature Oral: 37 DegC Peripheral Pulse Rate: 83 bpm Respiratory Rate: 18 br/min Systolic Blood Pressure: 100 mmHg Diastolic Blood Pressure: 75 mmHg SpO2: 100 % Oxygen Therapy: Room air Measurements This Visit Height/Length Dosin.100 cm Height/Length Estimated: 165.100 cm Weight Dosin.910 kg Weight Estimated: 127.910 kg Problems List: Problem Onset Comments Anxiety Anxiety and depression Back pain Diabetes mellitus type 2 Gastric bypass Lumbar strain Migraine Smoker 12-JAN-2014 12:37:00 Added secondary to documentation in Social History. Patient Education Eye Foreign Body A foreign body is an object on or in the eye that should not be there. It could be a speck of dirt or dust, a hair, an eyelash, a splinter, or any other object. It can be on the outside of the eyeball (extraocular) or inside the eyeball. If the object is on the outside of the eyeball, it can usually be washed out or taken out by your doctor. An object inside the eyeball is an emergency, and it must be treated with surgery. Follow these instructions at home: ? Take xvmx-nhk-ojomsyl and prescription medicines only as told by your doctor. Use eye drops or ointment as told. ? If you were prescribed antibiotic drops or ointment, use it as told by your doctor. Do not stop using it even if you start to feel better. ? If you have a bandage on your eye (eye shield): ? Wear it as told. Follow instructions from your doctor about when to take it off. ? Do not drive or use heavy machinery while wearing the bandage. ? If you do not have a bandage on your eye: ? Keep your eye closed as much as possible. ? Do not rub your eye. ? Wear dark glasses in bright light. ? Do not wear contact lenses until your eye feels normal, or as told by your doctor. ? If you are doing activities with a high risk of eye injury, such as using high-speed tools, wear protective eye covering. ? Keep all follow-up visits as told by your doctor. This is important. Contact a doctor if: ? You have more pain in your eye. ? You have problems with your eye bandage. ? You have abnormal fluid (discharge) coming from your eye. Get help right away if: ? Your ability to see (vision) gets worse. ? You have more redness and swelling in or around your eye. Summary ? A foreign body is an object on or in the eye that should not be there. ? An object on the outside of the eyeball can usually be washed out or taken out by your doctor. An object inside the eyeball is an emergency. ? If you have a bandage on your eye (eye shield), do not drive while wearing it. ? If you have more pain in your eye, contact your doctor. This information is not intended to replace advice given to you by your health care provider. Make sure you discuss any questions you have with your health care provider. Document Released: 12/17/2010 Document Revised: 07/15/2017 Document Reviewed: 07/15/2017 [employer] Patient Education ? 2019 [employer] Viruses or Bacteria What?s got you sick? Antibiotics only treat bacterial infections. Viral illnesses cannot be treated with antibiotics. When an antibiotic is not prescribed, ask your healthcare professional for tips on how to relieve symptoms and feel better. Usual Cause Illness Viruses Bacteria Antibiotic Needed Cold/Runny Nose NO Bronchitis/Chest Cold (in otherwise healthy children and adults) NO Whooping Cough Yes Flu NO Strep Throat Yes Sore Throat (except strep) NO Fluid in the middle ear (otitis media with effusion) NO Urinary Tract Infection Yes Antibiotics Aren?t Always the Answer www.cdc.gov/getsmart GET SMART Know When Antibiotics Work [place]. Department of Health and Human Services Centers for Disease Control and Prevention March 2014 [facility] Medication Managementon 12-12 Medication Management [id number] 1.00OTGTIFF [facility] ED Note - Physicianon 2018 ED Note - Physician Patient: GABI COOMBS Age: 48 years Sex: FEMALE : 1970 Associated Diagnoses: Eye foreign body Author: Nolan hZeng DO Basic Information Time seen: Date & time 01/02/19 21:35:00. History of Present Illness The patient presents with This patient arrives emergency room by private vehicle for evaluation of slight drainage and discomfort to the right eye, she states she was at a local flea market,when she felt something I and really didn't bother too much but she's been watering since. States more intense now and so she decided to come the emergency room the other eye is fine she's had no sore throat no cough no chest pain she doesn't wear contacts, she hasn't put any ointment or drops in her eyes, and she asked for us to look at her side, which she states the discomfort is worse when she blinks. Social history here with her significant other, smoker, not employed, and not a diabetic. Physical exam is alert and oriented left eye appears to be normal, eyelids are normal there there is no discharge or drainage present pupils are equal round reactive, at about 3 mm, there is no hyphema, there is no foreign body. The right eye, there is no irritation to the lids and eyelids are normal there is some injections sclera slight, there is no hyphema, no hypopyon, but there is a small foreign body seen in the middle of the cornea. Tetracaine entirely relieved her discomfort, and with a sterile Q-tip, which was instilled with tetracaine, the foreign body was gently lifted off the frontal or cornea, stain revealed no other irritations, except for this area where the foreign body was removed. There was no other foreign body seen underneath the eyelids, and feels satisfied that this is a cause of patient's discomfort. She will be released on ointment, with instructions for follow-up. and Her heart rate and rhythm was regular, no murmur, lungs are clear without any wheezes, faces symmetric size and tongue in the midline.. Impression and Plan Diagnosis Eye foreign body ([id number] T15.90XA, Discharge, Medical) right, corneal Plan Condition: Improved. Disposition: Discharged: time 01/02/19 21:53:00. Prescriptions: Launch prescriptions Pharmacy: erythromycin ophthalmic (Order): 1 [place], Right eye, QID. Patient was given the following educational materials: Eye Foreign Body, Nnaj-no-Pyuj. Follow up with: ; MAGNO GOOD In 1 day 01/03/19 home use ointment in the eye every 4-6 hours the irritation will slowly disappear call Dr Good's office--or eye physician of your choice--in the am 9 am for a recheck apt you are welcomed to return anytime mary zheng, er physician, leonel saravia. Counseled: Patient, Friend, Regarding diagnosis, Regarding diagnostic results, Regarding treatment plan, Regarding prescription, Patient indicated understanding of instructions. [Electronically Signed on: 02/24/2019 07:48 EDT] Nolan Zhneg DO [Verified on: 02/24/2019 07:48 EDT] Nolan Zheng DO [facility] Progress Note - Nurseon 12-12 TSH Qn Patient arrives to ED room 8 complaining of right eye pain. She states that she was at the flea market earlier and was petting rabbits and has had some burning in her right eye since then. Pt states that as far as she knows she did not get anything into that eye. Pt denies any other complaints at this time. Pt currently resting on cart. [Electronically Signed on: 01/02/2019 21:48 EDT] Cher Stark RN [Verified on: 01/02/2019 21:48 EDT] Cher Stark RN [facility] NM THYROID METASTASES SCAN W HOLE BODYon 10-13-2018 NM THYROID METASTASES SCAN WHOLE BODY EXAMINATION: THYROID 10/13/2018 10:54 am TECHNIQUE: Whole-body gamma camera imaging following oral administration of 1.8 millicuries of I 123. COMPARISON: 19 Nov 2016 HISTORY: ORDERING SYSTEM PROVIDED HISTORY: Thyroid cancer (HCC) TECHNOLOGIST PROVIDED HISTORY: Ordering Physician Provided Reason for Exam: thyroid cancer Prior ablation. FINDINGS: Normal physiologic uptake of radiotracer is noted in the salivary glands, GI tract and bladder. No radiotracer uptake is noted in the neck or thyroid bed. No abnormal radiotracer uptake is noted in the chest, abdomen or pelvis. IMPRESSION: No radiotracer uptake in the thyroid bed to suggest residual thyroid tissue/tumor. No evidence of metastasis. Interpreted by: Jina Izquierdo MD Signed by: Jina Izquierdo MD 10/13/18 Final result Normal [facility] Coding Summaryon 09-28-2018 Coding Summary CODING DATE: 09/28/[address] [facility] STATUS: Home PAYOR: Medicaid HMO ADMIT DX: REASON FOR VISIT DX: R51 Headache FINAL DX: PRINCIPAL: R51 Headache SECONDARY: PROCEDURES DOCTOR NAME DATE NOTE: The code number assigned matches the documented diagnosis and / or procedure in the patient's chart. However, the narrative phrase printed from the coding software may appear abbreviated, or result in slightly different terminology. Coded By: Kelly Tucker Date Saved: 09/28/2018 10:02 am Normal [facility] Coding Summary CODING DATE: 09/28/[address] [facility] STATUS: Home PAYOR: Medicaid HMO ADMIT DX: REASON FOR VISIT DX: R51 Headache FINAL DX: PRINCIPAL: R51 Headache SECONDARY: PROCEDURES DOCTOR NAME DATE NOTE: The code number assigned matches the documented diagnosis and / or procedure in the patient's chart. However, the narrative phrase printed from the coding software may appear abbreviated, or result in slightly different terminology. Coded By: Kelly Tucker Date Saved: 09/28/2018 10:00 am Normal [facility] Vitamin D 25 OHon 09-28-2018 Vitamin D 25 [place] 19.6 ng/mL Low 30.0-100.0 [facility] Comment on above: Result Comment: Reference Range: Vitamin D status Range Deficiency <20 ng/mL Mild Deficiency 20-30 ng/mL Sufficiency 30-100 ng/mL Toxicity >100 ng/mL Performed By: #### V D25 #### [facility] Schematic Labs [facility] [place] [address] Communication Spec: Ron Adorno MD ED Clinical Summaryon 2018 ED Clinical Summary [facility] - Emergency Department [address] [place] [id number] ED Clinical Summary PERSON INFORMATION Name: GABI COOMBS Age: 48 Years Sex: FEMALE : [birth year] MRN: Acct#: Visit Reason: Headache - Recurrent; HEADACHE Arrival: 09/26/18 00:40:00 Discharge: 09/26/18 02:25:00 LOS: 000 01:45 Check In: 09/26/18 00:40:00 Checkout:09/26/18 02:25:00 Address: [address] [place] [address] PCP: Juarez Corado PROVIDER INFORMATION Provider Role Assigned Unassigned Cher Stark RN ED Nurse 09/26/18 00:41:35 Nolan Zheng DO ED Provider 09/26/18 01:25:45 VITALS INFORMATION Vital Sign Triage Latest Temperature Tympanic Temperature Temporal Artery Pulse Rate 68 bpm 68 bpm O2 Sat 97 % 97 % Respiratory Rate 16 br/min 16 br/min Blood Pressure 121 mmHg/77 mmHg 121 mmHg/77 mmHg MEDICAL INFORMATION Medications Given: Medication Dose Route nalbuphine 10 mg IM diphenhydrAMINE 25 mg IM promethazine 12.5 mg IM Allergy Information: sulfa drug; ketorolac; amoxicillin; ibuprofen; bleach; time release capsule PHYSICIAN DOCUMENTATION DISCHARGE INFORMATION: Discharge Disposition: Home Discharge Location: Home PATIENT EDUCATION INFORMATION Instructions: Recurrent Migraine Headache Follow-Up: With: Address: When: Juarez Corado [address] [place], [place] [id number] [facility] (1[facility] Within 3 to 5 days Comments: home call Dr Corado for a recheck apt you are welcomed to return anytime T H ELYSE< ER PHYSICIAN< [facility] DIAGNOSIS: Recurrent headache Patient Understands: Yes - Patient/family/careg iver verbalizes understanding of instructions given Comment: [facility] ED Note - Physicianon 2018 ED Note - Physician Patient: GABI COOMBS Age: 48 years Sex: FEMALE : [birth year] Associated Diagnoses: Recurrent headache Author: Nolan Zheng DO Basic Information Time seen: Date & time 09/26/18 01:26:00. History source: Patient. Arrival mode: Private vehicle, walking. History limitation: None. History of Present Illness The patient presents with This patient, seen in the presence of her fiancee' and son, here for had post occiput, which she has had before, no diffenent, insidious onset over day, nausea, no vomit, no fever, no cough; She has been using ibuprofen at home Social: Single, non-smoker, no etoh, no drugs, lives at home pmhx: chronic headaches, no dm, no heart, (+) hx gastric bypass in the past; Has had theses montoya in the past; no aneurysm in family or self montoya post occiput rad to back of head, same as always, would like Nubain and pherergan and benadryl PE Pleasant, alert, oriented, neck supple, tender to C1C2 area bilat, neck supple, pupils 4.0 mm effie, tm nl, pharynx nl, lungs cta, hrrr, no m, pmi left chest no resp distress, abd soft, no mass, not tender skin warm and dry ext non-oedematous abd soft, not tender (+) overweight; neuro symmetric, speech precise, pupils 3.0=3.0 effie, no nystagmus, eomi' psych nl . Health Status Allergies: Allergic Reactions (Selected) Severity Not Documented Amoxicillin- No reactions were documented. Bleach- No reactions were documented. Ibuprofen- No reactions were documented. Ketorolac- No reactions were documented. Sulfa drug- No reactions were documented. Time release capsule- No reactions were documented.. Medications: (Selected) Inpatient Medications Ordered Benadryl: 25 mg = 0.5 mL, IM, Once Nubain: 10 mg = 1 mL, IM, Once Phenergan: 12.5 mg = 0.5 mL, IM, Once Prescriptions Prescribed Imitrex 6 mg/0.5 mL subcutaneous solution: 6 mg = 0.5 mL, SubQ, Once, PRN: as needed for migraine headache, 2 EA, 4 Refill(s) Documented Medications Documented Dulera 100 mcg-5 mcg/inh inhalation aerosol: 2 puff(s), INH, BID, PRN: shortness of breath or wheezing, 0 Refill(s) Flexeril: 10 mg, PO, TID, 0 Refill(s) SUMAtriptan 100 mg oral tablet: 100 mg, 1 tab(s), PO, Daily, PRN: as needed for migraine headache, 0 Refill(s) Topamax 100 mg oral tablet: 100 mg, 1 tab(s), PO, BID, 0 Refill(s) Ventolin HFA 90 mcg/inh inhalation aerosol: 2 puff(s), INH, QID, PRN: for wheezing, 0 Refill(s) Vitamin D2 50,000 intl units (1.25 mg) oral capsule: 50,000 International_Unit, 1 cap(s), PO, MWF, 0 Refill(s) buPROPion 200 mg/12 hours (SR) oral tablet, extended release: 200 mg, 1 tab(s), PO, Daily, 0 Refill(s) busPIRone 5 mg oral tablet: 5 mg, 1 tab(s), PO, TID, 0 Refill(s) calcium (as carbonate)-vitamin D 600 mg-400 intl units oral tablet: 1 tab(s), PO, BID, 0 Refill(s) gabapentin 600 mg oral tablet: 600 mg, 1 tab(s), PO, TID, 0 Refill(s) guanFACINE 1 mg oral tablet: 1 mg, 1 tab(s), PO, TID, 0 Refill(s) lamoTRIgine 100 mg oral tablet: 300 mg, 3 tab(s), PO, Once a day (at bedtime), 0 Refill(s) levothyroxine 25 mcg (0.025 mg) oral capsule: 25 mcg, 1 cap(s), PO, Daily, 0 Refill(s) venlafaxine 75 mg oral tablet: 75 mg, 1 tab(s), PO, BID, 0 Refill(s). Past Medical/ Family/ Social History Medical history: Resolved ([id number]): Resolved. Bypass ([id number]): Resolved. Comments: - Done in 1999 Back (922.31): Resolved. Comments: - surgery in 2011. Surgical history: Gastric bypass ([id number]).. Family history: No family history items have been selected or recorded.. Social history: Social & Psychosocial Habits Tobacco 03/02/2017 Smoking tobacco use: Current Every Day Smoker Type: Cigarettes Number used per day: 2 PPD 01/30/2018 Smoking tobacco use: 5-9 cigarettes (between 07/20/2018 Smoking tobacco use: 10 or more cigarettes (1/ . Problem list: Active Problems (8) Anxiety Anxiety and depression Back pain Diabetes mellitus type 2 Gastric bypass Lumbar strain Migraine Smoker . Medical Decision Making Orders Launch Orders Pharmacy: Phenergan (Order): 12.5 mg, IM, Once Benadryl (Order): 25 mg, IM, Once Nubain (Order): 10 mg, IM, Once. Reexamination/ Reevaluation Interventions: Patient felt better. Impression and Plan Diagnosis Recurrent headache ([id number] R51, Discharge, Medical) Plan Condition: Improved. Disposition: Discharged: time 09/26/18 01:37:00. Patient was given the following educational materials: Recurrent Migraine Headache. Follow up with: Juarez Corado Within 3 to [address] Corado for a recheck apt you are welcomed to return anytime T Leonel ZHENG< ER PHYSICIAN< Leonel Saravia. Counseled: Patient, Regarding diagnosis, Regarding diagnostic results, Regarding treatment plan, Regarding prescription, Patient indicated understanding of instructions. [Electronically Signed on: 09/27/2018 07:08 EDT] Nolan Zheng DO [Verified on: 09/27/2018 07:08 EDT] Nolan Zheng DO [facility] ED Patient Education Noteon 09-26-2018 ED Patient Education Note Education Materials Neurology Recurrent Migraine Headache Migraines are a type of headache, and they are usually stronger and more sudden than normal headaches (tension headaches). Migraines are characterized by an intense pulsing, throbbing pain that is usually only present on one side of the head. Sometimes, migraine headaches can cause nausea, vomiting, sensitivity to light and sound, and vision changes. Recurrent migraines keep coming back (recurring). A migraine can last from 4 hours up to 3 days. What are the causes? The exact cause of this condition is not known. However, a migraine may be caused when nerves in the brain become irritated and release chemicals that cause inflammation of blood vessels. This inflammation causes pain. Certain things may also trigger migraines, such as: ? A disruption in your regular eating and sleeping schedule. ? Smoking. ? Stress. ? Menstruation. ? Certain foods and drinks, such as: ? Aged cheese. ? Chocolate. ? Alcohol. ? Caffeine. ? Foods or drinks that contain nitrates, glutamate, aspartame, MSG, or tyramine. ? Lack of sleep. ? Hunger. ? Physical exertion. ? Fatigue. ? High altitude. ? Weather changes. ? Medicines, such as: ? Nitroglycerin, which is used to treat chest pain. ? control pills. ? Estrogen. ? Some blood pressure medicines. What are the signs or symptoms? Symptoms of this condition vary for each person and may include: ? Pain that is usually only present on one side of the head. In some cases, the pain may be on both sides of the head or around the head or neck. ? Pulsating or throbbing pain. ? Severe pain that prevents daily activities. ? Pain that is aggravated by any physical activity. ? Nausea, vomiting, or both. ? Dizziness. ? Pain with exposure to bright lights, loud noises, or activity. ? General sensitivity to bright lights, loud noises, or smells. Before you get a migraine, you may get warning signs that a migraine is coming (aura). An aura may include: ? Seeing flashing lights. ? Seeing bright spots, halos, or zigzag lines. ? Having tunnel vision or blurred vision. ? Having numbness or a tingling feeling. ? Having trouble talking. ? Having muscle weakness. ? Smelling a certain odor. How is this diagnosed? This condition is often diagnosed based on: ? Your symptoms and medical history. ? A physical exam. You may also have tests, including: ? A CT scan or MRI of your brain. These imaging tests cannot diagnose migraines, but they can help to rule out other causes of headaches. ? Blood tests. How is this treated? This condition is treated with: ? Medicines. These are used for: ? Lessening pain and nausea. ? Preventing recurrent migraines. ? Lifestyle changes, such as changes to your diet or sleeping patterns. ? Behavior therapy, such as relaxation training or biofeedback. Biofeedback is a treatment that involves teaching you to relax and use your brain to lower your heart rate and control your breathing. Follow these instructions at home: Medicines ? Take dxqn-[id number] and prescription medicines only as told by your health care provider. ? Do not drive or use heavy machinery while taking prescription pain medicine. Lifestyle ? Do not use any products that contain nicotine or tobacco, such as cigarettes and e-cigarettes. If you need help quitting, ask your health care provider. ? Limit alcohol intake to no more than 1 drink a day for non women and 2 drinks a day for men. One drink equals 12 oz of beer, 5 oz of wine, or 1? oz of hard liquor. ? Get 7?9 hours of sleep each night, or the amount of sleep recommended by your health care provider. ? Limit your stress. Talk with your health care provider if you need help with stress management. ? Maintain a healthy weight. If you need help losing weight, ask your health care provider. ? Exercise regularly. Aim for 150 minutes of moderate-intensity exercise (walking, biking, yoga) or 75 minutes of vigorous exercise (running, circuit training, swimming) each week. General instructions ? Keep a journal to find out what triggers your migraine headaches so you can avoid these triggers. For example, write down: ? What you eat and drink. ? How much sleep you get. ? Any change to your diet or medicines. ? Lie down in a dark, quiet room when you have a migraine. ? Try placing a cool towel over your head when you have a migraine. ? Keep lights dim, if bright lights bother you and make your migraines worse. ? Keep all follow-up visits as told by your health care provider. This is important. Contact a health care provider if: ? Your pain does not improve, even with medicine. ? Your migraines continue to return, even with medicine. ? You have a fever. ? You have weight loss. Get help right away if: ? Your migraine becomes severe and medicine does not help. ? You have a stiff neck. ? You have a loss of vision. ? You have muscle weakness or loss of muscle control. ? You start losing your balance or have trouble walking. ? You feel faint or you pass out. ? You develop new, severe symptoms. ? You start having abrupt severe headaches that last for a second or less, like a thunderclap. Summary ? Migraine headaches are usually stronger and more sudden than normal headaches (tension headaches). Migraines are characterized by an intense pulsing, throbbing pain that is usually only present on one side of the head. ? The exact cause of this condition is not known. However, a migraine may be caused when nerves in the brain become irritated and release chemicals that cause inflammation of blood vessels. ? Certain things may trigger migraines, such as changes to diet or sleeping patterns, smoking, certain foods, alcohol, stress, and certain medicines. ? Sometimes, migraine headaches can cause nausea, vomiting, sensitivity to light and sound, and vision changes. ? Migraines are often diagnosed based on your symptoms, medical history, and a physical exam. This information is not intended to replace advice given to you by your health care provider. Make sure you discuss any questions you have with your health care provider. Document Released: 03/24/2002 Document Revised: 04/10/2017 Document Reviewed: 04/10/2017 [employer] Patient Education ? 2018 [employer]. Normal [facility] ED Patient Summaryon 019 ED Patient Summary [facility] - Emergency Department [address] [place], [place] [id number] PATIENT DISCHARGE INSTRUCTIONS Patient Information Name: GABI COOMBS Age: 48 Years Date of : [birth year] Reason For Visit: Headache - Recurrent; HEADACHE Arrival Time: 09/26/18 00:40:00 Primary Care Physician: Juarez Corado Attending Physician: Nolan Zheng DO Comment: Visit Diagnosis: Diagnoses This Visit Headache - Recurrent ([id number]) Recurrent headache (R51) If you received any narcotics, sedation, or any other medication that causes drowsiness for the next 24 hours, unless otherwise directed: ? Do not drive a car. ? Do not operate machinery such as power tools, lawn mowers, drills, sewing machines, or stoves ? Avoid alcoholic beverages and drugs for allergies, nerves, or sleep ? Do not make important personal or business decisions or sign any legal documents With: Address: When: Juarez Corado [address] [place] [id number] Business (1) Within 3 to 5 days Comments: home call Dr Corado for a recheck apt you are welcomed to return anytime T H ELYSE< ER PHYSICIAN< Leonel Saravia Medication Information: The exam and treatment you received today in the [facility] Emergency Department were for an urgent problem and are not intended as complete care. It is important for you to follow up with a doctor, nurse practitioner, or physician?s surveyor's assistant for ongoing care. If your symptoms become worse or you do not improve as expected and you are unable to reach your usual health care provider, you should return to the Emergency Department, we are available 24 hours a day. For those patients who have received Radiology results, the interpretation of your X-ray as given to you by our Emergency Department physician is only a preliminary report. The Radiologist will review your films and if there is a change in the diagnosis you will be notified by phone. Please make sure you have provided a working phone number so we can reach you if necessary. In the event that you had a lab culture while you were a patient in the Emergency Department, you will be notified by phone if there is a need to change your antibiotic. Please make sure you have provided a working phone number so we can reach you if necessary. [facility] Emergency Department has provided you with a complete list of medications post discharge. Please inform your electronic commerce specialist/provider of your visit and for further instruction on these medications. Any specific questions regarding your chronic medications and dosages should be discussed with your primary care physician(s) and/or pharmacist. Medications to Continue That Have Not Changed Other Medications albuterol (Ventolin HFA 90 mcg/inh inhalation aerosol) 2 puff(s) Inhalation 4 times a day as needed for wheezing. buPROPion (buPROPion 200 mg/12 hours (SR) oral tablet, extended release) 1 tab(s) Oral every day. busPIRone (busPIRone 5 mg oral tablet) 1 tab(s) Oral 3 times a day. calcium-vitamin D (calcium (as carbonate)-vitamin D 600 mg-400 intl units oral tablet) 1 tab(s) Oral 2 times a day. cyclobenzaprine (Flexeril) 10 Milligram Oral 3 times a day. ergocalciferol (Vitamin D2 50,000 intl units (1.25 mg) oral capsule) 1 cap(s) Oral Thursday, Thursday and Thursday. formoterol-mometason e (Dulera 100 mcg-5 mcg/inh inhalation aerosol) 2 puff(s) Inhalation 2 times a day as needed shortness of breath or wheezing. gabapentin (gabapentin 600 mg oral tablet) 1 tab(s) Oral 3 times a day. guanFACINE (guanFACINE 1 mg oral tablet) 1 tab(s) Oral 3 times a day. lamoTRIgine (lamoTRIgine 100 mg oral tablet) 3 tab(s) Oral once a day (at bedtime). levothyroxine (levothyroxine 25 mcg (0.025 mg) oral capsule) 1 cap(s) Oral every day. SUMAtriptan (Imitrex 6 mg/0.5 mL subcutaneous solution) 0.5 Milliliter Subcutaneous once as needed as needed for migraine headache. Refills: 4. SUMAtriptan (SUMAtriptan 100 mg oral tablet) 1 tab(s) Oral every day as needed as needed for migraine headache. topiramate (Topamax 100 mg oral tablet) 1 tab(s) Oral 2 times a day. venlafaxine (venlafaxine 75 mg oral tablet) 1 tab(s) Oral 2 times a day. Visit Information Allergies: Substance Reaction Symptoms Type Comments bleach amoxicillin Drug ibuprofen Drug ketorolac Drug sulfa drug Drug time release capsule Drug Vital Signs: Vitals and Measurements this Visit (last charted value for your 09/26/2018 visit) Vital Signs This Visit Temperature Temporal: 36.5 DegC Peripheral Pulse Rate: 68 bpm Respiratory Rate: 16 br/min Systolic Blood Pressure: 121 mmHg Diastolic Blood Pressure: 77 mmHg SpO2: 97 % Oxygen Therapy: Room air Measurements This Visit Height/Length Dosin.100 cm Height/Length Estimated: 165.100 cm Weight Dosin.450 kg Weight Estimated: 132.450 kg Problems List: Problem Onset Comments Anxiety Anxiety and depression Back pain Diabetes mellitus type 2 Gastric bypass Lumbar strain Migraine Smoker 12-JAN-2014 12:37:00 Added secondary to documentation in Social History. Patient Education Recurrent Migraine Headache Migraines are a type of headache, and they are usually stronger and more sudden than normal headaches (tension headaches). Migraines are characterized by an intense pulsing, throbbing pain that is usually only present on one side of the head. Sometimes, migraine headaches can cause nausea, vomiting, sensitivity to light and sound, and vision changes. Recurrent migraines keep coming back (recurring). A migraine can last from 4 hours up to 3 days. What are the causes? The exact cause of this condition is not known. However, a migraine may be caused when nerves in the brain become irritated and release chemicals that cause inflammation of blood vessels. This inflammation causes pain. Certain things may also trigger migraines, such as: ? A disruption in your regular eating and sleeping schedule. ? Smoking. ? Stress. ? Menstruation. ? Certain foods and drinks, such as: ? Aged cheese. ? Chocolate. ? Alcohol. ? Caffeine. ? Foods or drinks that contain nitrates, glutamate, aspartame, MSG, or tyramine. ? Lack of sleep. ? Hunger. ? Physical exertion. ? Fatigue. ? High altitude. ? Weather changes. ? Medicines, such as: ? Nitroglycerin, which is used to treat chest pain. ? control pills. ? Estrogen. ? Some blood pressure medicines. What are the signs or symptoms? Symptoms of this condition vary for each person and may include: ? Pain that is usually only present on one side of the head. In some cases, the pain may be on both sides of the head or around the head or neck. ? Pulsating or throbbing pain. ? Severe pain that prevents daily activities. ? Pain that is aggravated by any physical activity. ? Nausea, vomiting, or both. ? Dizziness. ? Pain with exposure to bright lights, loud noises, or activity. ? General sensitivity to bright lights, loud noises, or smells. Before you get a migraine, you may get warning signs that a migraine is coming (aura). An aura may include: ? Seeing flashing lights. ? Seeing bright spots, halos, or zigzag lines. ? Having tunnel vision or blurred vision. ? Having numbness or a tingling feeling. ? Having trouble talking. ? Having muscle weakness. ? Smelling a certain odor. How is this diagnosed? This condition is often diagnosed based on: ? Your symptoms and medical history. ? A physical exam. You may also have tests, including: ? A CT scan or MRI of your brain. These imaging tests cannot diagnose migraines, but they can help to rule out other causes of headaches. ? Blood tests. How is this treated? This condition is treated with: ? Medicines. These are used for: ? Lessening pain and nausea. ? Preventing recurrent migraines. ? Lifestyle changes, such as changes to your diet or sleeping patterns. ? Behavior therapy, such as relaxation training or biofeedback. Biofeedback is a treatment that involves teaching you to relax and use your brain to lower your heart rate and control your breathing. Follow these instructions at home: Medicines ? Take vamz-zpi-lkwfenq and prescription medicines only as told by your health care provider. ? Do not drive or use heavy machinery while taking prescription pain medicine. Lifestyle ? Do not use any products that contain nicotine or tobacco, such as cigarettes and e-cigarettes. If you need help quitting, ask your health care provider. ? Limit alcohol intake to no more than 1 drink a day for non women and 2 drinks a day for men. One drink equals 12 oz of beer, 5 oz of wine, or 1? oz of hard liquor. ? Get 7?9 hours of sleep each night, or the amount of sleep recommended by your health care provider. ? Limit your stress. Talk with your health care provider if you need help with stress management. ? Maintain a healthy weight. If you need help losing weight, ask your health care provider. ? Exercise regularly. Aim for 150 minutes of moderate-intensity exercise (walking, biking, yoga) or 75 minutes of vigorous exercise (running, circuit training, swimming) each week. General instructions ? Keep a journal to find out what triggers your migraine headaches so you can avoid these triggers. For example, write down: ? What you eat and drink. ? How much sleep you get. ? Any change to your diet or medicines. ? Lie down in a dark, quiet room when you have a migraine. ? Try placing a cool towel over your head when you have a migraine. ? Keep lights dim, if bright lights bother you and make your migraines worse. ? Keep all follow-up visits as told by your health care provider. This is important. Contact a health care provider if: ? Your pain does not improve, even with medicine. ? Your migraines continue to return, even with medicine. ? You have a fever. ? You have weight loss. Get help right away if: ? Your migraine becomes severe and medicine does not help. ? You have a stiff neck. ? You have a loss of vision. ? You have muscle weakness or loss of muscle control. ? You start losing your balance or have trouble walking. ? You feel faint or you pass out. ? You develop new, severe symptoms. ? You start having abrupt severe headaches that last for a second or less, like a thunderclap. Summary ? Migraine headaches are usually stronger and more sudden than normal headaches (tension headaches). Migraines are characterized by an intense pulsing, throbbing pain that is usually only present on one side of the head. ? The exact cause of this condition is not known. However, a migraine may be caused when nerves in the brain become irritated and release chemicals that cause inflammation of blood vessels. ? Certain things may trigger migraines, such as changes to diet or sleeping patterns, smoking, certain foods, alcohol, stress, and certain medicines. ? Sometimes, migraine headaches can cause nausea, vomiting, sensitivity to light and sound, and vision changes. ? Migraines are often diagnosed based on your symptoms, medical history, and a physical exam. This information is not intended to replace advice given to you by your health care provider. Make sure you discuss any questions you have with your health care provider. Document Released: 03/24/2002 Document Revised: 04/10/2017 Document Reviewed: 04/10/2017 [employer] Patient Education ? 2018 [employer] Viruses or Bacteria What?s got you sick? Antibiotics only treat bacterial infections. Viral illnesses cannot be treated with antibiotics. When an antibiotic is not prescribed, ask your healthcare professional for tips on how to relieve symptoms and feel better. Usual Cause Illness Viruses Bacteria Antibiotic Needed Cold/Runny Nose NO Bronchitis/Chest Cold (in otherwise healthy children and adults) NO Whooping Cough Yes Flu NO Strep Throat Yes Sore Throat (except strep) NO Fluid in the middle ear (otitis media with effusion) NO Urinary Tract Infection Yes Antibiotics Aren?t Always the Answer www.cdc.gov/getsmart GET SMART Know When Antibiotics Work U.S. Department of Health and Human Services Centers for Disease Control and Prevention March 2014 Normal [facility] Coding Summaryon 09-16-2018 Coding Summary CODING DATE: 09/16/2018 [facility] STATUS: PAYOR: Medicaid HMO ADMIT DX: REASON FOR VISIT DX: R51 Headache FINAL DX: PRINCIPAL: G43.909 Migraine, unspecified, not intractable, without status migrainosus SECONDARY: PROCEDURES DOCTOR NAME DATE NOTE: The code number assigned matches the documented diagnosis and / or procedure in the patient's chart. However, the narrative phrase printed from the coding software may appear abbreviated, or result in slightly different terminology. Coded By: Oanh Mchugh Date Saved: 09/16/2018 01:11 pm [facility] Coding Summary CODING DATE: 09/16/2018 [facility] STATUS: Home PAYOR: Medicaid HMO ADMIT DX: REASON FOR VISIT DX: R51 Headache FINAL DX: PRINCIPAL: G43.909 Migraine, unspecified, not intractable, without status migrainosus SECONDARY: PROCEDURES DOCTOR NAME DATE NOTE: The code number assigned matches the documented diagnosis and / or procedure in the patient's chart. However, the narrative phrase printed from the coding software may appear abbreviated, or result in slightly different terminology. Coded By: Oanh Mchugh Date Saved: 09/16/2018 01:10 pm [facility] ED Clinical Summaryon 2018 ED Clinical Summary [facility] - Emergency Department [address] [place], [place] [id number] ED Clinical Summary PERSON INFORMATION Name: GABI COOMBS Age: 48 Years Sex: FEMALE : [birth year] MRN: Acct#: Visit Reason: Headache - Recurrent; HEADACHE Arrival: 09/15/18 23:17:00 Discharge: 09/15/18 23:42:00 LOS: 000 00:25 Check In: 09/15/18 23:17:00 Checkout:09/15/18 23:42:00 Address: [address] [place] [address] PCP: Juarez Corado PROVIDER INFORMATION Provider Role Assigned Unassigned Chirag Kim MD ED Provider 09/15/18 23:17:29 Elias RN, Letty Garrido ED Nurse 09/15/18 23:27:03 VITALS INFORMATION Vital Sign Triage Latest Temperature Tympanic Temperature Temporal Artery Pulse Rate 73 bpm 73 bpm O2 Sat 100 % 100 % Respiratory Rate 20 br/min 20 br/min Blood Pressure 135 mmHg/99 mmHg 135 mmHg/99 mmHg MEDICAL INFORMATION Medications Given: Medication Dose Route diphenhydrAMINE 50 mg IM promethazine 25 mg IM nalbuphine 5 mg IM Allergy Information: sulfa drug; ketorolac; amoxicillin; ibuprofen; bleach; time release capsule PHYSICIAN DOCUMENTATION Patient: GABI COOMBS Age: 48 years Sex: FEMALE : [birth year] Associated Diagnoses: Migraine Author: Chirag Kim MD Basic Information Time seen: Date & time 09/15/18 23:20:00. Migrainous headache History of Present Illness 48-year-old white female presents to the emergency room complaining of a migrainous type headache. She reports she's had nausea and vomiting today in addition to a frontal headache. She has photophobia and phonophobia. Patient reports she used Imitrex 6 mg subcutaneously earlier today with no relief of her headache pain. She states she cannot take ibuprofen and is allergic to Toradol. She comes to [place] from [facility] stating that her primary care doctor, Dr. Zamudio is from [place] but she will not go to that hospital since they almost killed her there. Patient reports the headache is similar to previous headaches and that she normally gets Phenergan and Nubain for her headache when she comes to the emergency room. Review of Systems Constitutional symptoms: No fever, no chills. Eye symptoms: Photophobia. Respiratory symptoms: No cough, Neurologic symptoms: Headache, no dizziness, no altered level of consciousness, no numbness, no tingling, no weakness. Health Status Allergies: Allergic Reactions (Selected) Severity Not Documented Amoxicillin- No reactions were documented. Bleach- No reactions were documented. Ibuprofen- No reactions were documented. Ketorolac- No reactions were documented. Sulfa drug- No reactions were documented. Time release capsule- No reactions were documented.. Physical Examination Vital Signs Per nurse's notes. General: Alert, no acute distress, Obese. Skin: Warm, dry, pink. Head: Normocephalic, atraumatic. Eye: Pupils are equal, round and reactive to light, extraocular movements are intact, normal conjunctiva. Ears, nose, mouth and throat: Oral mucosa moist. Cardiovascular: Regular rate and rhythm. Respiratory: Respirations are non-labored. Back: Normal range of motion. Musculoskeletal: Normal ROM, normal strength. Neurological: Alert and oriented to person, place, time, and situation, No focal neurological deficit observed, normal motor observed, normal speech observed. Psychiatric: Cooperative, appropriate mood & affect. Medical Decision Making Differential Diagnosis: Migraine, tension headache. Rationale: Patient's records reviewed and it was noted that she has received Phenergan 25 mg and Nubain 10 mg numerous times here in the past for her migrainous-type headache. Patient will be treated with Nubain 5 mg, Phenergan 25 mg and Benadryl 50 mg intramuscular here seeming. Was advised follow-up with her primary care physician to review this emergency room visit.. Impression and Plan Diagnosis Migraine ([id number] G43.909, Discharge, Medical) Plan Condition: Improved, Stable. Disposition: Discharged: to home. Patient was given the following educational materials: Migraine Headache, Xlhv-[id number]. Follow up with: Juarez Corado Within 3 to 5 days, Juarez Corado Within 3 to 5 days. Counseled: Patient, Family, Regarding diagnosis, Regarding diagnostic results, Regarding treatment plan, Patient indicated understanding of instructions. DISCHARGE INFORMATION: Discharge Disposition: Home Discharge Location: PATIENT EDUCATION INFORMATION Instructions: Migraine Headache, Grej-tm-Dbck Follow-Up: With: Address: When: Juarez Corado [address] [place] [id number] [facility] () Within 3 to 5 days DIAGNOSIS: Migraine Patient Understands: Yes - Patient/family/careg iver verbalizes understanding of instructions given Comment: [facility] ED Note - Physicianon 2018 ED Note - Physician Patient: GABI COOMBS Age: 48 years Sex: FEMALE : [birth year] Associated Diagnoses: Migraine Author: Chirag Kim MD Basic Information Time seen: Date & time 09/15/18 23:20:00. Migrainous headache History of Present Illness 48-year-old white female presents to the emergency room complaining of a migrainous type headache. She reports she's had nausea and vomiting today in addition to a frontal headache. She has photophobia and phonophobia. Patient reports she used Imitrex 6 mg subcutaneously earlier today with no relief of her headache pain. She states she cannot take ibuprofen and is allergic to Toradol. She comes to [place] from [facility] stating that her primary care doctor, Dr. Zamudio is from [place] but she will not go to that hospital since they almost killed her there. Patient reports the headache is similar to previous headaches and that she normally gets Phenergan and Nubain for her headache when she comes to the emergency room. Review of Systems Constitutional symptoms: No fever, no chills. Eye symptoms: Photophobia. Respiratory symptoms: No cough, Neurologic symptoms: Headache, no dizziness, no altered level of consciousness, no numbness, no tingling, no weakness. Health Status Allergies: Allergic Reactions (Selected) Severity Not Documented Amoxicillin- No reactions were documented. Bleach- No reactions were documented. Ibuprofen- No reactions were documented. Ketorolac- No reactions were documented. Sulfa drug- No reactions were documented. Time release capsule- No reactions were documented.. Physical Examination Vital Signs Per nurse's notes. General: Alert, no acute distress, Obese. Skin: Warm, dry, pink. Head: Normocephalic, atraumatic. Eye: Pupils are equal, round and reactive to light, extraocular movements are intact, normal conjunctiva. Ears, nose, mouth and throat: Oral mucosa moist. Cardiovascular: Regular rate and rhythm. Respiratory: Respirations are non-labored. Back: Normal range of motion. Musculoskeletal: Normal ROM, normal strength. Neurological: Alert and oriented to person, place, time, and situation, No focal neurological deficit observed, normal motor observed, normal speech observed. Psychiatric: Cooperative, appropriate mood & affect. Medical Decision Making Differential Diagnosis: Migraine, tension headache. Rationale: Patient's records reviewed and it was noted that she has received Phenergan 25 mg and Nubain 10 mg numerous times here in the past for her migrainous-type headache. Patient will be treated with Nubain 5 mg, Phenergan 25 mg and Benadryl 50 mg intramuscular here seeming. Was advised follow-up with her primary care physician to review this emergency room visit.. Impression and Plan Diagnosis Migraine ([id number] G43.909, Discharge, Medical) Plan Condition: Improved, Stable. Disposition: Discharged: to home. Patient was given the following educational materials: Migraine Headache, Heni-aw-Nruy. Follow up with: Juarez Corado Within 3 to 5 days, Juarez Corado Within 3 to 5 days. Counseled: Patient, Family, Regarding diagnosis, Regarding diagnostic results, Regarding treatment plan, Patient indicated understanding of instructions. [Electronically Signed on: 09/15/2018 23:31 EST] Chirag Kim MD [Verified on: 09/15/2018 23:31 EST] Chirag Kim MD [facility] ED Patient Education Noteon 09-16-2018 ED Patient Education Note Education Materials Neurology Migraine Headache A migraine headache is a very strong throbbing pain on one side or both sides of your head. Migraines can also cause other symptoms. Talk with your doctor about what things may bring on (trigger) your migraine headaches. Follow these instructions at home: Medicines ? Take myzl-yib-chynrad and prescription medicines only as told by your doctor. ? Do not drive or use heavy machinery while taking prescription pain medicine. ? To prevent or treat constipation while you are taking prescription pain medicine, your doctor may recommend that you: ? Drink enough fluid to keep your pee (urine) clear or pale yellow. ? Take atyi-kwk-txrogsk or prescription medicines. ? Eat foods that are high in fiber. These include fresh fruits and vegetables, whole grains, and beans. ? Limit foods that are high in fat and processed sugars. These include fried and sweet foods. Lifestyle ? Avoid alcohol. ? Do not use any products that contain nicotine or tobacco, such as cigarettes and e-cigarettes. If you need help quitting, ask your doctor. ? Get at least 8 hours of sleep every night. ? Limit your stress. General instructions ? Keep a journal to find out what may bring on your migraines. For example, write down: ? What you eat and drink. ? How much sleep you get. ? Any change in what you eat or drink. ? Any change in your medicines. ? If you have a migraine: ? Avoid things that make your symptoms worse, such as bright lights. ? It may help to lie down in a dark, quiet room. ? Do not drive or use heavy machinery. ? Ask your doctor what activities are safe for you. ? Keep all follow-up visits as told by your doctor. This is important. Contact a doctor if: ? You get a migraine that is different or worse than your usual migraines. Get help right away if: ? Your migraine gets very bad. ? You have a fever. ? You have a stiff neck. ? You have trouble seeing. ? Your muscles feel weak or like you cannot control them. ? You start to lose your balance a lot. ? You start to have trouble walking. ? You pass out (faint). This information is not intended to replace advice given to you by your health care provider. Make sure you discuss any questions you have with your health care provider. Document Released: 04/07/2009 Document Revised: 01/16/2017 Document Reviewed: 12/15/2016 [employer] Interactive Patient Education ? 2017 [employer]. Normal [facility] ED Patient Summaryon 019 ED Patient Summary [facility] - Emergency Department [address] [place], [place] [id number] PATIENT DISCHARGE INSTRUCTIONS Patient Information Name: GABI COOMBS Age: 48 Years Date of : [birth year] Reason For Visit: Headache - Recurrent; HEADACHE Arrival Time: 09/15/18 23:17:00 Primary Care Physician: Juarez Corado Attending Physician: Chirag Kim MD Comment: Visit Diagnosis: Diagnoses This Visit Headache - Recurrent ([id number]) Migraine (G43.909) If you received any narcotics, sedation, or any other medication that causes drowsiness for the next 24 hours, unless otherwise directed: ? Do not drive a car. ? Do not operate machinery such as power tools, lawn mowers, drills, sewing machines, or stoves ? Avoid alcoholic beverages and drugs for allergies, nerves, or sleep ? Do not make important personal or business decisions or sign any legal documents With: Address: When: Juarez Corado [address] [place] [address] [place], [place] [id number] Business (1) Within 3 to 5 days Medication Information: The exam and treatment you received today in the [facility] Emergency Department were for an urgent problem and are not intended as complete care. It is important for you to follow up with a doctor, nurse practitioner, or physician?s surveyor's assistant for ongoing care. If your symptoms become worse or you do not improve as expected and you are unable to reach your usual health care provider, you should return to the Emergency Department, we are available 24 hours a day. For those patients who have received Radiology results, the interpretation of your X-ray as given to you by our Emergency Department physician is only a preliminary report. The Radiologist will review your films and if there is a change in the diagnosis you will be notified by phone. Please make sure you have provided a working phone number so we can reach you if necessary. In the event that you had a lab culture while you were a patient in the Emergency Department, you will be notified by phone if there is a need to change your antibiotic. Please make sure you have provided a working phone number so we can reach you if necessary. [facility] Emergency Department has provided you with a complete list of medications post discharge. Please inform your electronic commerce specialist/provider of your visit and for further instruction on these medications. Any specific questions regarding your chronic medications and dosages should be discussed with your primary care physician(s) and/or pharmacist. Medications to Continue That Have Not Changed Other Medications albuterol (Ventolin HFA 90 mcg/inh inhalation aerosol) 2 puff(s) Inhalation 4 times a day as needed for wheezing. buPROPion (buPROPion 200 mg/12 hours (SR) oral tablet, extended release) 1 tab(s) Oral every day. busPIRone (busPIRone 5 mg oral tablet) 1 tab(s) Oral 3 times a day. calcium-vitamin D (calcium (as carbonate)-vitamin D 600 mg-400 intl units oral tablet) 1 tab(s) Oral 2 times a day. cyclobenzaprine (Flexeril) 10 Milligram Oral 3 times a day. ergocalciferol (Vitamin D2 50,000 intl units (1.25 mg) oral capsule) 1 cap(s) Oral Thursday, Thursday and Thursday. formoterol-mometason e (Dulera 100 mcg-5 mcg/inh inhalation aerosol) 2 puff(s) Inhalation 2 times a day as needed shortness of breath or wheezing. gabapentin (gabapentin 600 mg oral tablet) 1 tab(s) Oral 3 times a day. guanFACINE (guanFACINE 1 mg oral tablet) 1 tab(s) Oral 3 times a day. lamoTRIgine (lamoTRIgine 100 mg oral tablet) 3 tab(s) Oral once a day (at bedtime). levothyroxine (levothyroxine 25 mcg (0.025 mg) oral capsule) 1 cap(s) Oral every day. SUMAtriptan (Imitrex 6 mg/0.5 mL subcutaneous solution) 0.5 Milliliter Subcutaneous once as needed as needed for migraine headache. Refills: 4. SUMAtriptan (SUMAtriptan 100 mg oral tablet) 1 tab(s) Oral every day as needed as needed for migraine headache. topiramate (Topamax 100 mg oral tablet) 1 tab(s) Oral 2 times a day. venlafaxine (venlafaxine 75 mg oral tablet) 1 tab(s) Oral 2 times a day. Visit Information Allergies: Substance Reaction Symptoms Type Comments bleach amoxicillin Drug ibuprofen Drug ketorolac Drug sulfa drug Drug time release capsule Drug Vital Signs: Vitals and Measurements this Visit (last charted value for your 09/15/2018 visit) Vital Signs This Visit Temperature Oral: 37.2 DegC Peripheral Pulse Rate: 73 bpm Respiratory Rate: 20 br/min Systolic Blood Pressure: 135 mmHg Diastolic Blood Pressure: 99 mmHg SpO2: 100 % Oxygen Therapy: Room air Measurements This Visit Height: 165.100 cm Height/Length Dosin.100 cm Weight: 132.450 kg Weight Dosin.450 kg Problems List: Problem Onset Comments Anxiety Anxiety and depression Back pain Diabetes mellitus type 2 Gastric bypass Lumbar strain Migraine Smoker 12-JAN-2014 12:37:00 Added secondary to documentation in Social History. Patient Education Migraine Headache A migraine headache is a very strong throbbing pain on one side or both sides of your head. Migraines can also cause other symptoms. Talk with your doctor about what things may bring on (trigger) your migraine headaches. Follow these instructions at home: Medicines ? Take tnzk-foe-agcfnva and prescription medicines only as told by your doctor. ? Do not drive or use heavy machinery while taking prescription pain medicine. ? To prevent or treat constipation while you are taking prescription pain medicine, your doctor may recommend that you: ? Drink enough fluid to keep your pee (urine) clear or pale yellow. ? Take ajxk-sld-ommgscq or prescription medicines. ? Eat foods that are high in fiber. These include fresh fruits and vegetables, whole grains, and beans. ? Limit foods that are high in fat and processed sugars. These include fried and sweet foods. Lifestyle ? Avoid alcohol. ? Do not use any products that contain nicotine or tobacco, such as cigarettes and e-cigarettes. If you need help quitting, ask your doctor. ? Get at least 8 hours of sleep every night. ? Limit your stress. General instructions ? Keep a journal to find out what may bring on your migraines. For example, write down: ? What you eat and drink. ? How much sleep you get. ? Any change in what you eat or drink. ? Any change in your medicines. ? If you have a migraine: ? Avoid things that make your symptoms worse, such as bright lights. ? It may help to lie down in a dark, quiet room. ? Do not drive or use heavy machinery. ? Ask your doctor what activities are safe for you. ? Keep all follow-up visits as told by your doctor. This is important. Contact a doctor if: ? You get a migraine that is different or worse than your usual migraines. Get help right away if: ? Your migraine gets very bad. ? You have a fever. ? You have a stiff neck. ? You have trouble seeing. ? Your muscles feel weak or like you cannot control them. ? You start to lose your balance a lot. ? You start to have trouble walking. ? You pass out (faint). This information is not intended to replace advice given to you by your health care provider. Make sure you discuss any questions you have with your health care provider. Document Released: 04/07/2009 Document Revised: 01/16/2017 Document Reviewed: 12/15/2016 [employer] Interactive Patient Education ? 2017 [employer] Viruses or Bacteria What?s got you sick? Antibiotics only treat bacterial infections. Viral illnesses cannot be treated with antibiotics. When an antibiotic is not prescribed, ask your healthcare professional for tips on how to relieve symptoms and feel better. Usual Cause Illness Viruses Bacteria Antibiotic Needed Cold/Runny Nose NO Bronchitis/Chest Cold (in otherwise healthy children and adults) NO Whooping Cough Yes Flu NO Strep Throat Yes Sore Throat (except strep) NO Fluid in the middle ear (otitis media with effusion) NO Urinary Tract Infection Yes Antibiotics Aren?t Always the Answer www.cdc.gov/getsmart GET SMART Know When Antibiotics Work U.S. Department of Health and Human Services Centers for Disease Control and Prevention March 2014 [facility] Coding Summaryon 08-23-2018 Coding Summary CODING DATE: 08/23/2018 [facility] STATUS: Home PAYOR: Medicaid HMO ADMIT DX: REASON FOR VISIT DX: R51 Headache FINAL DX: PRINCIPAL: R51 Headache SECONDARY: PROCEDURES DOCTOR NAME DATE NOTE: The code number assigned matches the documented diagnosis and / or procedure in the patient's chart. However, the narrative phrase printed from the coding software may appear abbreviated, or result in slightly different terminology. Coded By: Kelly Tucker Date Saved: 08/23/2018 12:36 pm [facility] Coding Summary CODING DATE: 08/23/2018 [facility] STATUS: Home PAYOR: Medicaid HMO ADMIT DX: REASON FOR VISIT DX: R51 Headache FINAL DX: PRINCIPAL: R51 Headache SECONDARY: PROCEDURES DOCTOR NAME DATE NOTE: The code number assigned matches the documented diagnosis and / or procedure in the patient's chart. However, the narrative phrase printed from the coding software may appear abbreviated, or result in slightly different terminology. Coded By: Kelly Tucker Date Saved: 08/23/2018 12:34 pm [facility] ED Clinical Summaryon 2018 ED Clinical Summary [facility] - Emergency Department [address] [place] [id number] ED Clinical Summary PERSON INFORMATION Name: GABI COOMBS Age: 48 Years Sex: FEMALE : [birth year] MRN: Acct#: Visit Reason: Headache; HEADACHE Arrival: 08/21/18 01:08:00 Discharge: 08/21/18 01:48:00 LOS: 000 00:40 Check In: 08/21/18 01:08:00 Checkout:08/21/18 01:48:00 Address: [address] [place] [id number] PCP: Juarez Corado PROVIDER INFORMATION Provider Role Assigned Unassigned Tomas SUACEDO, Kaitlin ED Nurse 08/21/18 01:21:38 Justen Crook DO ED Provider 08/21/18 01:26:37 VITALS INFORMATION Vital Sign Triage Latest Temperature Tympanic Temperature Temporal Artery Pulse Rate 74 bpm 74 bpm O2 Sat 98 % 98 % Respiratory Rate 18 br/min 18 br/min Blood Pressure 123 mmHg/95 mmHg 123 mmHg/95 mmHg MEDICAL INFORMATION Medications Given: Medication Dose Route nalbuphine 10 mg IM promethazine 25 mg IM Allergy Information: sulfa drug; ketorolac; amoxicillin; ibuprofen; bleach; time release capsule PHYSICIAN DOCUMENTATION Patient: GABI COOMBS Age: 48 years Sex: FEMALE : [birth year] Associated Diagnoses: Cephalgia Author: Justen Crook DO Basic Information Additional information: Chief Complaint from Nursing Triage Note : Chief Complaint 08/21/18 01:14 EST Chief Complaint headache . History of Present Illness The patient is 48-year-old female with headache spelled. Headache is frontal and occipital areas of her head. She simply previous migraine she's had in the past she gets some every couple months and normally gets injections Nubain and Phenergan from us. She does have Imitrex she tried it didn't help. She doesn't nausea. She does not have any sore throat chest back belly pain weakness on one side or the other she hasn't had any traumas recently. She did have a CAT scan several months ago which was negative at that time. Review of Systems Additional review of systems information: All other systems reviewed and otherwise negative. Health Status Allergies: Allergic Reactions (Selected) Severity Not Documented Amoxicillin- No reactions were documented. Bleach- No reactions were documented. Ibuprofen- No reactions were documented. Ketorolac- No reactions were documented. Sulfa drug- No reactions were documented. Time release capsule- No reactions were documented.. Medications: (Selected) Prescriptions Prescribed Imitrex 6 mg/0.5 mL subcutaneous solution: 6 mg = 0.5 mL, SubQ, Once, PRN: as needed for migraine headache, 2 EA, 4 Refill(s) Documented Medications Documented Dulera 100 mcg-5 mcg/inh inhalation aerosol: 2 puff(s), INH, BID, PRN: shortness of breath or wheezing, 0 Refill(s) Flexeril: 10 mg, PO, TID, 0 Refill(s) SUMAtriptan 100 mg oral tablet: 100 mg, 1 tab(s), PO, Daily, PRN: as needed for migraine headache, 0 Refill(s) Topamax 100 mg oral tablet: 100 mg, 1 tab(s), PO, BID, 0 Refill(s) Ventolin HFA 90 mcg/inh inhalation aerosol: 2 puff(s), INH, QID, PRN: for wheezing, 0 Refill(s) Vitamin D2 50,000 intl units (1.25 mg) oral capsule: 50,000 International_Unit, 1 cap(s), PO, MWF, 0 Refill(s) buPROPion 200 mg/12 hours (SR) oral tablet, extended release: 200 mg, 1 tab(s), PO, Daily, 0 Refill(s) busPIRone 5 mg oral tablet: 5 mg, 1 tab(s), PO, TID, 0 Refill(s) calcium (as carbonate)-vitamin D 600 mg-400 intl units oral tablet: 1 tab(s), PO, BID, 0 Refill(s) gabapentin 600 mg oral tablet: 600 mg, 1 tab(s), PO, TID, 0 Refill(s) guanFACINE 1 mg oral tablet: 1 mg, 1 tab(s), PO, TID, 0 Refill(s) lamoTRIgine 100 mg oral tablet: 300 mg, 3 tab(s), PO, Once a day (at bedtime), 0 Refill(s) levothyroxine 25 mcg (0.025 mg) oral capsule: 25 mcg, 1 cap(s), PO, Daily, 0 Refill(s) venlafaxine 75 mg oral tablet: 75 mg, 1 tab(s), PO, BID, 0 Refill(s). Physical Examination Vital Signs Vital Signs 08/21/18 01:14 EST Temperature Oral 37 DegC Peripheral Pulse Rate 74 bpm Respiratory Rate 18 br/min Systolic Blood Pressure 123 mmHg Diastolic Blood Pressure 95 mmHg HI SpO2 98 % Oxygen Therapy Room air . Physical exam: Head: Atraumatic, normocephalic. Eyes: Eyes are normal to inspection. No discharge from eyes. Sclera normal. Conjunctiva normal. Ears nose throat: Nasal exam is normal. Posterior pharynx is normal. Mouth is normal to inspection. Neck: Normal range of motion. No JVD. No meningeal signs. Cardiac vascular: Regular rate and rhythm. No murmurs. Normal S1, S2. No rubs. No gallop. Lungs: Bilateral breath sounds clear to auscultation Abdomen: Bowel sounds active ?4. No guarding. No ascites. No tympany. Terrazas's, McBurney's negative. Nontender. Skin: Warm, dry, no rashes. Constitutional: No acute distress. Extremities: Good distal pulses. Good sensation and cap refill. No edema. Homans negative. Patient has 5 out of 5 strength upper and lower extremity bilaterally, PERRLA EOMI. The patient has no cranial nerve deficits. Medical Decision Making Orders Launch Orders Pharmacy: Phenergan (Order): 25 mg, IM, Once Nubain (Order): 10 mg, IM, Once. Reexamination/ Reevaluation Patient was given Nubain 10 mg IM Phenergan 25 mg IM. Relief the symptoms the patient was discharged home in good condition patient's having syncopal migraine symptoms for her and is not sudden onset no thunderclap symptoms atypical symptoms or neurologic symptoms. She doesn't have any family history of brain bleeds aneurysms tumors she didn't have any traumas. And patient was discharged home with physician with instructions for headache cephalgia. Impression and Plan Diagnosis Cephalgia ([id number] R51, Discharge, Medical) Plan Condition: Improved. Disposition: Discharged: to home. Patient was given the following educational materials: Migraine Headache, Migraine Headache. Follow up with: Juarez Corado Within 3 to 5 days. Counseled: Patient, Family. DISCHARGE INFORMATION: Discharge Disposition: Home Discharge Location: Home PATIENT EDUCATION INFORMATION Instructions: Migraine Headache Follow-Up: With: Address: When: Juarez Corado [address] [place] [address] [facility] () Within 3 to 5 days DIAGNOSIS: Cephalgia Patient Understands: Yes - Patient/family/careg iver verbalizes understanding of instructions given Comment: [facility] ED Note - Physicianon 2018 ED Note - Physician Patient: GABI COOMBS Age: 48 years Sex: FEMALE : 66 Associated Diagnoses: Cephalgia Author: Justen Crook DO Basic Information Additional information: Chief Complaint from Nursing Triage Note : Chief Complaint 08/21/18 01:14 EST Chief Complaint headache . History of Present Illness The patient is 48-year-old female with headache spelled. Headache is frontal and occipital areas of her head. She simply previous migraine she's had in the past she gets some every couple months and normally gets injections Nubain and Phenergan from us. She does have Imitrex she tried it didn't help. She doesn't nausea. She does not have any sore throat chest back belly pain weakness on one side or the other she hasn't had any traumas recently. She did have a CAT scan several months ago which was negative at that time. Review of Systems Additional review of systems information: All other systems reviewed and otherwise negative. Health Status Allergies: Allergic Reactions (Selected) Severity Not Documented Amoxicillin- No reactions were documented. Bleach- No reactions were documented. Ibuprofen- No reactions were documented. Ketorolac- No reactions were documented. Sulfa drug- No reactions were documented. Time release capsule- No reactions were documented.. Medications: (Selected) Prescriptions Prescribed Imitrex 6 mg/0.5 mL subcutaneous solution: 6 mg = 0.5 mL, SubQ, Once, PRN: as needed for migraine headache, 2 EA, 4 Refill(s) Documented Medications Documented Dulera 100 mcg-5 mcg/inh inhalation aerosol: 2 puff(s), INH, BID, PRN: shortness of breath or wheezing, 0 Refill(s) Flexeril: 10 mg, PO, TID, 0 Refill(s) SUMAtriptan 100 mg oral tablet: 100 mg, 1 tab(s), PO, Daily, PRN: as needed for migraine headache, 0 Refill(s) Topamax 100 mg oral tablet: 100 mg, 1 tab(s), PO, BID, 0 Refill(s) Ventolin HFA 90 mcg/inh inhalation aerosol: 2 puff(s), INH, QID, PRN: for wheezing, 0 Refill(s) Vitamin D2 50,000 intl units (1.25 mg) oral capsule: 50,000 International_Unit, 1 cap(s), PO, MWF, 0 Refill(s) buPROPion 200 mg/12 hours (SR) oral tablet, extended release: 200 mg, 1 tab(s), PO, Daily, 0 Refill(s) busPIRone 5 mg oral tablet: 5 mg, 1 tab(s), PO, TID, 0 Refill(s) calcium (as carbonate)-vitamin D 600 mg-400 intl units oral tablet: 1 tab(s), PO, BID, 0 Refill(s) gabapentin 600 mg oral tablet: 600 mg, 1 tab(s), PO, TID, 0 Refill(s) guanFACINE 1 mg oral tablet: 1 mg, 1 tab(s), PO, TID, 0 Refill(s) lamoTRIgine 100 mg oral tablet: 300 mg, 3 tab(s), PO, Once a day (at bedtime), 0 Refill(s) levothyroxine 25 mcg (0.025 mg) oral capsule: 25 mcg, 1 cap(s), PO, Daily, 0 Refill(s) venlafaxine 75 mg oral tablet: 75 mg, 1 tab(s), PO, BID, 0 Refill(s). Physical Examination Vital Signs Vital Signs 08/21/18 01:14 EST Temperature Oral 37 DegC Peripheral Pulse Rate 74 bpm Respiratory Rate 18 br/min Systolic Blood Pressure 123 mmHg Diastolic Blood Pressure 95 mmHg HI SpO2 98 % Oxygen Therapy Room air . Physical exam: Head: Atraumatic, normocephalic. Eyes: Eyes are normal to inspection. No discharge from eyes. Sclera normal. Conjunctiva normal. Ears nose throat: Nasal exam is normal. Posterior pharynx is normal. Mouth is normal to inspection. Neck: Normal range of motion. No JVD. No meningeal signs. Cardiac vascular: Regular rate and rhythm. No murmurs. Normal S1, S2. No rubs. No gallop. Lungs: Bilateral breath sounds clear to auscultation Abdomen: Bowel sounds active ?4. No guarding. No ascites. No tympany. Terrazas's, McBurney's negative. Nontender. Skin: Warm, dry, no rashes. Constitutional: No acute distress. Extremities: Good distal pulses. Good sensation and cap refill. No edema. Homans negative. Patient has 5 out of 5 strength upper and lower extremity bilaterally, PERRLA EOMI. The patient has no cranial nerve deficits. Medical Decision Making Orders Launch Orders Pharmacy: Phenergan (Order): 25 mg, IM, Once Nubain (Order): 10 mg, IM, Once. Reexamination/ Reevaluation Patient was given Nubain 10 mg IM Phenergan 25 mg IM. Relief the symptoms the patient was discharged home in good condition patient's having syncopal migraine symptoms for her and is not sudden onset no thunderclap symptoms atypical symptoms or neurologic symptoms. She doesn't have any family history of brain bleeds aneurysms tumors she didn't have any traumas. And patient was discharged home with physician with instructions for headache cephalgia. Impression and Plan Diagnosis Cephalgia ([id number] R51, Discharge, Medical) Plan Condition: Improved. Disposition: Discharged: to home. Patient was given the following educational materials: Migraine Headache, Migraine Headache. Follow up with: Juarez Corado Within 3 to 5 days. Counseled: Patient, Family. [Electronically Signed on: 08/21/2018 01:34 EST] Tupa DOJusten [Verified on: 08/21/2018 01:34 EST] Tupa Justen REEVES [facility] ED Note-Nursingon 08-21-2018 ED Note-Nursing Pt discharged home. Home care and follow-up instructions given to pt. Pt verbalized understanding. No prescriptions given to pt. VS are WNL. No distress observed. Pt ambulated xself to exit with family. [facility] ED Patient Education Noteon 08-21-2018 ED Patient Education Note Education Materials Neurology Migraine Headache A migraine headache is an intense, throbbing pain on one side or both sides of the head. Migraines may also cause other symptoms, such as nausea, vomiting, and sensitivity to light and noise. What are the causes? Doing or taking certain things may also trigger migraines, such as: ? Alcohol. ? Smoking. ? Medicines, such as: ? Medicine used to treat chest pain (nitroglycerine). ? control pills. ? Estrogen pills. ? Certain blood pressure medicines. ? Aged cheeses, chocolate, or caffeine. ? Foods or drinks that contain nitrates, glutamate, aspartame, or tyramine. ? Physical activity. Other things that may trigger a migraine include: ? Menstruation. ? . ? Hunger. ? Stress, lack of sleep, too much sleep, or fatigue. ? Weather changes. What increases the risk? The following factors may make you more likely to experience migraine headaches: ? Age. Risk increases with age. ? Family history of migraine headaches. ? Being . ? Depression and anxiety. ? Obesity. ? Being a woman. ? Having a hole in the heart (patent foramen ovale) or other heart problems. What are the signs or symptoms? The main symptom of this condition is pulsating or throbbing pain. Pain may: ? Happen in any area of the head, such as on one side or both sides. ? Interfere with daily activities. ? Get worse with physical activity. ? Get worse with exposure to bright lights or loud noises. Other symptoms may include: ? Nausea. ? Vomiting. ? Dizziness. ? General sensitivity to bright lights, loud noises, or smells. Before you get a migraine, you may get warning signs that a migraine is developing (aura). An aura may include: ? Seeing flashing lights or having blind spots. ? Seeing bright spots, halos, or zigzag lines. ? Having tunnel vision or blurred vision. ? Having numbness or a tingling feeling. ? Having trouble talking. ? Having muscle weakness. How is this diagnosed? A migraine headache can be diagnosed based on: ? Your symptoms. ? A physical exam. ? Tests, such as CT scan or MRI of the head. These imaging tests can help rule out other causes of headaches. ? Taking fluid from the spine (lumbar puncture) and analyzing it (cerebrospinal fluid analysis, or CSF analysis). How is this treated? A migraine headache is usually treated with medicines that: ? Relieve pain. ? Relieve nausea. ? Prevent migraines from coming back. Treatment may also include: ? Acupuncture. ? Lifestyle changes like avoiding foods that trigger migraines. Follow these instructions at home: Medicines ? Take [id number] and prescription medicines only as told by your health care provider. ? Do not drive or use heavy machinery while taking prescription pain medicine. ? To prevent or treat constipation while you are taking prescription pain medicine, your health care provider may recommend that you: ? Drink enough fluid to keep your urine clear or pale yellow. ? Take feze-eba-pzyjcul or prescription medicines. ? Eat foods that are high in fiber, such as fresh fruits and vegetables, whole grains, and beans. ? Limit foods that are high in fat and processed sugars, such as fried and sweet foods. Lifestyle ? Avoid alcohol use. ? Do not use any products that contain nicotine or tobacco, such as cigarettes and e-cigarettes. If you need help quitting, ask your health care provider. ? Get at least 8 hours of sleep every night. ? Limit your stress. General instructions ? Keep a journal to find out what may trigger your migraine headaches. For example, write down: ? What you eat and drink. ? How much sleep you get. ? Any change to your diet or medicines. ? If you have a migraine: ? Avoid things that make your symptoms worse, such as bright lights. ? It may help to lie down in a dark, quiet room. ? Do not drive or use heavy machinery. ? Ask your health care provider what activities are safe for you while you are experiencing symptoms. ? Keep all follow-up visits as told by your health care provider. This is important. Contact a health care provider if: ? You develop symptoms that are different or more severe than your usual migraine symptoms. Get help right away if: ? Your migraine becomes severe. ? You have a fever. ? You have a stiff neck. ? You have vision loss. ? Your muscles feel weak or like you cannot control them. ? You start to lose your balance often. ? You develop trouble walking. ? You faint. This information is not intended to replace advice given to you by your health care provider. Make sure you discuss any questions you have with your health care provider. Document Released: 06/29/2006 Document Revised: 01/16/2017 Document Reviewed: 12/15/2016 Elsevier Interactive Patient Education ? 2017 [employer] Normal [facility] ED Patient Summaryon 019 ED Patient Summary [facility] - Emergency Department [address] [place], [place] [id number] PATIENT DISCHARGE INSTRUCTIONS Patient Information Name: GABI COOMBS Age: 48 Years Date of : [birth year] Reason For Visit: Headache; HEADACHE Arrival Time: 08/21/18 01:08:00 Primary Care Physician: Juarez Corado Attending Physician: Justen Crook DO Comment: Visit Diagnosis: Diagnoses This Visit Cephalgia (R51) Headache ([id number]) If you received any narcotics, sedation, or any other medication that causes drowsiness for the next 24 hours, unless otherwise directed: ? Do not drive a car. ? Do not operate machinery such as power tools, lawn mowers, drills, sewing machines, or stoves ? Avoid alcoholic beverages and drugs for allergies, nerves, or sleep ? Do not make important personal or business decisions or sign any legal documents With: Address: When: Juarez Corado [address] [place] [address] Business (1) Within 3 to 5 days Medication Information: The exam and treatment you received today in the [facility] Emergency Department were for an urgent problem and are not intended as complete care. It is important for you to follow up with a doctor, nurse practitioner, or physician?s surveyor's assistant for ongoing care. If your symptoms become worse or you do not improve as expected and you are unable to reach your usual health care provider, you should return to the Emergency Department, we are available 24 hours a day. For those patients who have received Radiology results, the interpretation of your X-ray as given to you by our Emergency Department physician is only a preliminary report. The Radiologist will review your films and if there is a change in the diagnosis you will be notified by phone. Please make sure you have provided a working phone number so we can reach you if necessary. In the event that you had a lab culture while you were a patient in the Emergency Department, you will be notified by phone if there is a need to change your antibiotic. Please make sure you have provided a working phone number so we can reach you if necessary. [facility] Emergency Department has provided you with a complete list of medications post discharge. Please inform your electronic commerce specialist/provider of your visit and for further instruction on these medications. Any specific questions regarding your chronic medications and dosages should be discussed with your primary care physician(s) and/or pharmacist. Medications to Continue That Have Not Changed Other Medications albuterol (Ventolin HFA 90 mcg/inh inhalation aerosol) 2 puff(s) Inhalation 4 times a day as needed for wheezing. buPROPion (buPROPion 200 mg/12 hours (SR) oral tablet, extended release) 1 tab(s) Oral every day. busPIRone (busPIRone 5 mg oral tablet) 1 tab(s) Oral 3 times a day. calcium-vitamin D (calcium (as carbonate)-vitamin D 600 mg-400 intl units oral tablet) 1 tab(s) Oral 2 times a day. cyclobenzaprine (Flexeril) 10 Milligram Oral 3 times a day. ergocalciferol (Vitamin D2 50,000 intl units (1.25 mg) oral capsule) 1 cap(s) Oral Thursday, Thursday and Thursday. formoterol-mometason e (Dulera 100 mcg-5 mcg/inh inhalation aerosol) 2 puff(s) Inhalation 2 times a day as needed shortness of breath or wheezing. gabapentin (gabapentin 600 mg oral tablet) 1 tab(s) Oral 3 times a day. guanFACINE (guanFACINE 1 mg oral tablet) 1 tab(s) Oral 3 times a day. lamoTRIgine (lamoTRIgine 100 mg oral tablet) 3 tab(s) Oral once a day (at bedtime). levothyroxine (levothyroxine 25 mcg (0.025 mg) oral capsule) 1 cap(s) Oral every day. SUMAtriptan (Imitrex 6 mg/0.5 mL subcutaneous solution) 0.5 Milliliter Subcutaneous once as needed as needed for migraine headache. Refills: 4. SUMAtriptan (SUMAtriptan 100 mg oral tablet) 1 tab(s) Oral every day as needed as needed for migraine headache. topiramate (Topamax 100 mg oral tablet) 1 tab(s) Oral 2 times a day. venlafaxine (venlafaxine 75 mg oral tablet) 1 tab(s) Oral 2 times a day. Visit Information Allergies: Substance Reaction Symptoms Type Comments bleach amoxicillin Drug ibuprofen Drug ketorolac Drug sulfa drug Drug time release capsule Drug Vital Signs: Vitals and Measurements this Visit (last charted value for your 08/21/2018 visit) Vital Signs This Visit Temperature Oral: 37 DegC Peripheral Pulse Rate: 74 bpm Respiratory Rate: 18 br/min Systolic Blood Pressure: 123 mmHg Diastolic Blood Pressure: 95 mmHg SpO2: 98 % Oxygen Therapy: Room air Measurements This Visit Height/Length Dosin.100 cm Height/Length Estimated: 165.100 cm Weight Dosin.080 kg Weight Estimated: 136.080 kg Problems List: Problem Onset Comments Anxiety Anxiety and depression Back pain Diabetes mellitus type 2 Gastric bypass Lumbar strain Migraine Smoker 12-JAN-2014 12:37:00 Added secondary to documentation in Social History. Patient Education Migraine Headache A migraine headache is an intense, throbbing pain on one side or both sides of the head. Migraines may also cause other symptoms, such as nausea, vomiting, and sensitivity to light and noise. What are the causes? Doing or taking certain things may also trigger migraines, such as: ? Alcohol. ? Smoking. ? Medicines, such as: ? Medicine used to treat chest pain (nitroglycerine). ? control pills. ? Estrogen pills. ? Certain blood pressure medicines. ? Aged cheeses, chocolate, or caffeine. ? Foods or drinks that contain nitrates, glutamate, aspartame, or tyramine. ? Physical activity. Other things that may trigger a migraine include: ? Menstruation. ? . ? Hunger. ? Stress, lack of sleep, too much sleep, or fatigue. ? Weather changes. What increases the risk? The following factors may make you more likely to experience migraine headaches: ? Age. Risk increases with age. ? Family history of migraine headaches. ? Being . ? Depression and anxiety. ? Obesity. ? Being a woman. ? Having a hole in the heart (patent foramen ovale) or other heart problems. What are the signs or symptoms? The main symptom of this condition is pulsating or throbbing pain. Pain may: ? Happen in any area of the head, such as on one side or both sides. ? Interfere with daily activities. ? Get worse with physical activity. ? Get worse with exposure to bright lights or loud noises. Other symptoms may include: ? Nausea. ? Vomiting. ? Dizziness. ? General sensitivity to bright lights, loud noises, or smells. Before you get a migraine, you may get warning signs that a migraine is developing (aura). An aura may include: ? Seeing flashing lights or having blind spots. ? Seeing bright spots, halos, or zigzag lines. ? Having tunnel vision or blurred vision. ? Having numbness or a tingling feeling. ? Having trouble talking. ? Having muscle weakness. How is this diagnosed? A migraine headache can be diagnosed based on: ? Your symptoms. ? A physical exam. ? Tests, such as CT scan or MRI of the head. These imaging tests can help rule out other causes of headaches. ? Taking fluid from the spine (lumbar puncture) and analyzing it (cerebrospinal fluid analysis, or CSF analysis). How is this treated? A migraine headache is usually treated with medicines that: ? Relieve pain. ? Relieve nausea. ? Prevent migraines from coming back. Treatment may also include: ? Acupuncture. ? Lifestyle changes like avoiding foods that trigger migraines. Follow these instructions at home: Medicines ? Take exsp-jhi-wurazkw and prescription medicines only as told by your health care provider. ? Do not drive or use heavy machinery while taking prescription pain medicine. ? To prevent or treat constipation while you are taking prescription pain medicine, your health care provider may recommend that you: ? Drink enough fluid to keep your urine clear or pale yellow. ? Take crzh-iyn-kajgcwh or prescription medicines. ? Eat foods that are high in fiber, such as fresh fruits and vegetables, whole grains, and beans. ? Limit foods that are high in fat and processed sugars, such as fried and sweet foods. Lifestyle ? Avoid alcohol use. ? Do not use any products that contain nicotine or tobacco, such as cigarettes and e-cigarettes. If you need help quitting, ask your health care provider. ? Get at least 8 hours of sleep every night. ? Limit your stress. General instructions ? Keep a journal to find out what may trigger your migraine headaches. For example, write down: ? What you eat and drink. ? How much sleep you get. ? Any change to your diet or medicines. ? If you have a migraine: ? Avoid things that make your symptoms worse, such as bright lights. ? It may help to lie down in a dark, quiet room. ? Do not drive or use heavy machinery. ? Ask your health care provider what activities are safe for you while you are experiencing symptoms. ? Keep all follow-up visits as told by your health care provider. This is important. Contact a health care provider if: ? You develop symptoms that are different or more severe than your usual migraine symptoms. Get help right away if: ? Your migraine becomes severe. ? You have a fever. ? You have a stiff neck. ? You have vision loss. ? Your muscles feel weak or like you cannot control them. ? You start to lose your balance often. ? You develop trouble walking. ? You faint. This information is not intended to replace advice given to you by your health care provider. Make sure you discuss any questions you have with your health care provider. Document Released: 06/29/2006 Document Revised: 01/16/2017 Document Reviewed: 12/15/2016 [employer] Patient Education ? 2017 [employer] Viruses or Bacteria What?s got you sick? Antibiotics only treat bacterial infections. Viral illnesses cannot be treated with antibiotics. When an antibiotic is not prescribed, ask your healthcare professional for tips on how to relieve symptoms and feel better. Usual Cause Illness Viruses Bacteria Antibiotic Needed Cold/Runny Nose NO Bronchitis/Chest Cold (in otherwise healthy children and adults) NO Whooping Cough Yes Flu NO Strep Throat Yes Sore Throat (except strep) NO Fluid in the middle ear (otitis media with effusion) NO Urinary Tract Infection Yes Antibiotics Aren?t Always the Answer www.cdc.gov/getsmart GET SMART Know When Antibiotics Work U.S. Department of Health and Human Services Centers for Disease Control and Prevention March 2014 [facility] Coding Summaryon 07-22-2018 Coding Summary CODING DATE: 07/22/2018 [facility] STATUS: Home PAYOR: Medicaid HMO ADMIT DX: REASON FOR VISIT DX: R51 Headache FINAL DX: PRINCIPAL: R51 Headache SECONDARY: PROCEDURES DOCTOR NAME DATE NOTE: The code number assigned matches the documented diagnosis and / or procedure in the patient's chart. However, the narrative phrase printed from the coding software may appear abbreviated, or result in slightly different terminology. Coded By: Kelly Tucker Date Saved: 07/22/2018 03:01 pm [facility] Coding Summary CODING DATE: 07/22/2018 [facility] STATUS: Home PAYOR: Medicaid HMO ADMIT DX: REASON FOR VISIT DX: R51 Headache FINAL DX: PRINCIPAL: R51 Headache SECONDARY: PROCEDURES DOCTOR NAME DATE NOTE: The code number assigned matches the documented diagnosis and / or procedure in the patient's chart. However, the narrative phrase printed from the coding software may appear abbreviated, or result in slightly different terminology. Coded By: Kelly Tucker Date Saved: 07/22/2018 02:59 pm [facility] ED Clinical Summaryon 2018 ED Clinical Summary [facility] - Emergency Department [address] [place], [place] [id number] ED Clinical Summary PERSON INFORMATION Name: GABI COOMBS Age: 48 Years Sex: FEMALE : [birth year] MRN: Acct#: Visit Reason: Headache - Recurrent; Headache; HEADACHE Arrival: 07/20/18 01:23:00 Discharge: 07/20/18 02:30:00 LOS: 000 01:07 Check In: 07/20/18 01:23:00 Checkout:07/20/18 02:30:00 Address: [address] [place] [id number] PCP: Juarez Corado PROVIDER INFORMATION Provider Role Assigned Unassigned Kirstin SAUCEDO, [facility] ED Nurse 07/20/18 01:27:18 Nolan Zheng DO ED Provider 07/20/18 02:05:44 VITALS INFORMATION Vital Sign Triage Latest Temperature Tympanic Temperature Temporal Artery Pulse Rate 89 bpm 89 bpm O2 Sat 98 % 98 % Respiratory Rate 16 br/min 16 br/min Blood Pressure 122 mmHg/88 mmHg 122 mmHg/88 mmHg MEDICAL INFORMATION Medications Given: Medication Dose Route promethazine 25 mg IM nalbuphine 10 mg IM Allergy Information: sulfa drug; ketorolac; amoxicillin; ibuprofen; bleach; time release capsule PHYSICIAN DOCUMENTATION DISCHARGE INFORMATION: Discharge Disposition: Home Discharge Location: Home PATIENT EDUCATION INFORMATION Instructions: Recurrent Migraine Headache, [id number] Follow-Up: With: Address: When: Juarez Mickie [address] [place] [id number] [facility] (1) Within 3 to 5 days Comments: home continue with your neurologist and Mr Corado take the Imitrex as directed for headache; since you ran out, we have refilled because you indicated that it worked well for you you are welcomed to return anytime. mary zheng, er physician, leonel saravia DIAGNOSIS: Recurrent headache Patient Understands: Yes - Patient/family/careg iver verbalizes understanding of instructions given Comment: [facility] ED Note - Physicianon 2018 ED Note - Physician Patient: GABI COOMBS Age: 48 years Sex: FEMALE : [birth year] Associated Diagnoses: Recurrent headache Author: Nolan Zheng DO Basic Information Time seen: Date & time 07/20/18 02:07:00. History source: Patient. Arrival mode: Private vehicle. History limitation: None. History of Present Illness The patient presents with Gabi comes to the ER with c/o bitemporal montoya, is out of her Accolo sq, which works, but now similar montoya to prior, request meds Nausea, no vomit, throbbing, bitemp, rad to post occiput bilat; no fever, no chills, no uri, no vomit, no diarrhea, no uti sx is on her diet, has lost much weight since starting (+) smoker, div, here with fiancee, not employed ROS: Otherwise neg; PE: Pleasant, alert, oriented, seen in room no 4, appears in good health, with reproducible montoya bitemp; neck supple, pupils 3.0 mm, no nystagmus, no uri, lungs cta, hrrr, no m, pmi, left chest, abd soft, non-tender; neuro: Smling, pleasant, alert, oriented, neck supple, good eye contact, speech precise lungs cta, hrrr, no m, pmi left chest well dressed, pleasant, fiancee, long converstion; Course: medicated, improved, home.. Health Status Allergies: Allergic Reactions (Selected) Severity Not Documented Amoxicillin- No reactions were documented. Bleach- No reactions were documented. Ibuprofen- No reactions were documented. Ketorolac- No reactions were documented. Sulfa drug- No reactions were documented. Time release capsule- No reactions were documented.. Medications: (Selected) Documented Medications Documented Dulera 100 mcg-5 mcg/inh inhalation aerosol: 2 puff(s), INH, BID, PRN: shortness of breath or wheezing, 0 Refill(s) Flexeril: 10 mg, PO, TID, 0 Refill(s) SUMAtriptan 100 mg oral tablet: 100 mg, 1 tab(s), PO, Daily, PRN: as needed for migraine headache, 0 Refill(s) Topamax 100 mg oral tablet: 100 mg, 1 tab(s), PO, BID, 0 Refill(s) Ventolin HFA 90 mcg/inh inhalation aerosol: 2 puff(s), INH, QID, PRN: for wheezing, 0 Refill(s) Vitamin D2 50,000 intl units (1.25 mg) oral capsule: 50,000 International_Unit, 1 cap(s), PO, MWF, 0 Refill(s) buPROPion 200 mg/12 hours (SR) oral tablet, extended release: 200 mg, 1 tab(s), PO, Daily, 0 Refill(s) busPIRone 5 mg oral tablet: 5 mg, 1 tab(s), PO, TID, 0 Refill(s) calcium (as carbonate)-vitamin D 600 mg-400 intl units oral tablet: 1 tab(s), PO, BID, 0 Refill(s) gabapentin 600 mg oral tablet: 600 mg, 1 tab(s), PO, TID, 0 Refill(s) guanFACINE 1 mg oral tablet: 1 mg, 1 tab(s), PO, TID, 0 Refill(s) lamoTRIgine 100 mg oral tablet: 300 mg, 3 tab(s), PO, Once a day (at bedtime), 0 Refill(s) levothyroxine 25 mcg (0.025 mg) oral capsule: 25 mcg, 1 cap(s), PO, Daily, 0 Refill(s) venlafaxine 75 mg oral tablet: 75 mg, 1 tab(s), PO, BID, 0 Refill(s). Past Medical/ Family/ Social History Medical history: Resolved ([id number]): Resolved. Bypass ([id number]): Resolved. Comments: - Done in 1999 Back (922.31): Resolved. Comments: - surgery in 2011. Surgical history: Gastric bypass ([id number]).. Family history: No family history items have been selected or recorded.. Social history: Social & Psychosocial Habits Tobacco 03/02/2017 Smoking tobacco use: Current Every Day Smoker Type: Cigarettes Number used per day: 2 PPD 01/30/2018 Smoking tobacco use: 5-9 cigarettes (between 07/20/2018 Smoking tobacco use: 10 or more cigarettes (1/ . Problem list: Active Problems (8) Anxiety Anxiety and depression Back pain Diabetes mellitus type 2 Gastric bypass Lumbar strain Migraine Smoker . Medical Decision Making Orders Launch Orders [facility] 10 mg, IM, Once Phenergan (Order): 25 mg, IM, Once. Impression and Plan Diagnosis Recurrent headache ([id number] R51, Discharge, Medical) Plan Condition: Improved. Disposition: Discharged: time 07/20/18 02:17:00. Prescriptions: Launch prescriptions Pharmacy: Imitrex 6 mg/0.5 mL subcutaneous solution (Prescribe): 6 mg = 0.5 mL, SubQ, Once, PRN: as needed for migraine headache, 2 EA, 4 Refill(s). Patient was given the following educational materials: Recurrent Migraine Headache, Ijdq-jc-Dadf. Follow up with: Juarez Corado Within 3 to 5 days home continue with your neurologist and Mr Corado take the Imitrex as directed for headache; since you ran out, we have refilled because you indicated that it worked well for you you are welcomed to return anytime. mary zheng, er physician, leonel saravia. Counseled: Patient, Friend, Regarding diagnosis, Regarding diagnostic results, Regarding treatment plan, Regarding prescription, Patient indicated understanding of instructions. [Electronically Signed on: 07/20/2018 05:48 EST] Nolan Zheng DO [Verified on: 07/20/2018 05:48 EST] Nolan Zheng DO [facility] ED Note-Nursingon 07-20-2018 ED Note-Nursing Alert and oriented x4, Ambulated back after making her coffee in waiting room to room #4. She has her son and with her tonight. States she has had a migraine for 2 days and out of her injection medication for her migraines. States she doesnt know of a peticular trigger for them. Also asked upon arrival if Dr Zheng was here, he knows her well and how to treat her migraines to make her feel better. [facility] ED Patient Education Noteon 07-20-2018 ED Patient Education Note Education Materials Neurology Recurrent Migraine Headache A migraine headache is very bad, throbbing pain that is usually on one side of your head. Recurrent migraines keep coming back (recurring). Talk with your doctor about what things may bring on (trigger) your migraine headaches. Follow these instructions at home: Medicines ? Take mtup-nxx-rgqhvjl and prescription medicines only as told by your doctor. ? Do not drive or use heavy machinery while taking prescription pain medicine. Lifestyle ? Do not use any products that contain nicotine or tobacco, such as cigarettes and e-cigarettes. If you need help quitting, ask your doctor. ? Limit alcohol intake to no more than 1 drink a day for non women and 2 drinks a day for men. One drink equals 12 oz of beer, 5 oz of wine, or 1? oz of hard liquor. ? Get 7?9 hours of sleep each night. ? Lessen any stress in your life. Ask your doctor about ways to lower your stress. ? Stay at a healthy weight. Talk with your doctor if you need help losing weight. ? Get regular exercise. General instructions ? Keep a journal to find out if certain things bring on migraine headaches. For example, write down: ? What you eat and drink. ? How much sleep you get. ? Any change to your diet or medicines. ? Lie down in a dark, quiet room when you have a migraine. ? Try placing a cool towel over your head when you have a migraine. ? Keep lights dim if bright lights bother you or make your migraines worse. ? Keep all follow-up visits as told by your doctor. This is important. Contact a doctor if: ? Medicine does not help your migraines. ? Your pain keeps coming back. ? You have a fever. ? You have weight loss without trying. Get help right away if: ? Your migraine becomes really bad and medicine does not help. ? You have a stiff neck. ? You have trouble seeing. ? Your muscles are weak or you lose control of your muscles. ? You lose your balance or have trouble walking. ? You feel like you will pass out (faint) or you pass out. ? You have really bad symptoms that are different than your first symptoms. ? You start having sudden, very bad headaches that last for one second or less, like a thunderclap. Summary ? A migraine headache is very bad, throbbing pain that is usually on one side of your head. ? Talk with your doctor about what things may bring on (trigger) your migraine headaches. ? Take ezgw-zwt-tpethto and prescription medicines only as told by your doctor. ? Lie down in a dark, quiet room when you have a migraine. ? Keep a journal about what you eat and drink, how much sleep you get, and any changes to your medicines. This can help you find out if certain things make you have migraine headaches. This information is not intended to replace advice given to you by your health care provider. Make sure you discuss any questions you have with your health care provider. Document Released: 04/07/2009 Document Revised: 05/22/2017 Document Reviewed: 05/22/2017 [employer] Interactive Patient Education ? 2017 [employer]. Normal [facility] ED Patient Summaryon 019 ED Patient Summary [facility] - Emergency Department [address] [place] [id number] PATIENT DISCHARGE INSTRUCTIONS Patient Information Name: GABI COOMBS Age: 48 Years Date of : [birth year] Reason For Visit: Headache - Recurrent; Headache; HEADACHE Arrival Time: 07/20/18 01:23:00 Primary Care Physician: Juarez Corado Attending Physician: Nolan Zheng DO Comment: Visit Diagnosis: Diagnoses This Visit Headache ([id number]) Headache - Recurrent ([id number]) Recurrent headache (R51) If you received any narcotics, sedation, or any other medication that causes drowsiness for the next 24 hours, unless otherwise directed: ? Do not drive a car. ? Do not operate machinery such as power tools, lawn mowers, drills, sewing machines, or stoves ? Avoid alcoholic beverages and drugs for allergies, nerves, or sleep ? Do not make important personal or business decisions or sign any legal documents With: Address: When: Juarez Corado [address] [place] [id number] Business (1) Within 3 to 5 days Comments: home continue with your neurologist and Mr Corado take the Imitrex as directed for headache; since you ran out, we have refilled because you indicated that it worked well for you you are welcomed to return anytime. mary zheng, er physician, leonel saravia Medication Information: The exam and treatment you received today in the [facility] Emergency Department were for an urgent problem and are not intended as complete care. It is important for you to follow up with a doctor, nurse practitioner, or physician?s surveyor's assistant for ongoing care. If your symptoms become worse or you do not improve as expected and you are unable to reach your usual health care provider, you should return to the Emergency Department, we are available 24 hours a day. For those patients who have received Radiology results, the interpretation of your X-ray as given to you by our Emergency Department physician is only a preliminary report. The Radiologist will review your films and if there is a change in the diagnosis you will be notified by phone. Please make sure you have provided a working phone number so we can reach you if necessary. In the event that you had a lab culture while you were a patient in the Emergency Department, you will be notified by phone if there is a need to change your antibiotic. Please make sure you have provided a working phone number so we can reach you if necessary. [facility] Emergency Department has provided you with a complete list of medications post discharge. Please inform your electronic commerce specialist/provider of your visit and for further instruction on these medications. Any specific questions regarding your chronic medications and dosages should be discussed with your primary care physician(s) and/or pharmacist. Medications That Were Updated - Follow Below Instructions [facility] [facility], [address], [place] [id number], [phone] Updated: SUMAtriptan (Imitrex 6 mg/0.5 mL subcutaneous solution) 0.5 Milliliter Subcutaneous once as needed as needed for migraine headache. Refills: 4. Other Medications Updated: SUMAtriptan (SUMAtriptan 100 mg oral tablet) 1 tab(s) Oral every day as needed as needed for migraine headache. Medications to Continue That Have Not Changed Other Medications albuterol (Ventolin HFA 90 mcg/inh inhalation aerosol) 2 puff(s) Inhalation 4 times a day as needed for wheezing. buPROPion (buPROPion 200 mg/12 hours (SR) oral tablet, extended release) 1 tab(s) Oral every day. busPIRone (busPIRone 5 mg oral tablet) 1 tab(s) Oral 3 times a day. calcium-vitamin D (calcium (as carbonate)-vitamin D 600 mg-400 intl units oral tablet) 1 tab(s) Oral 2 times a day. cyclobenzaprine (Flexeril) 10 Milligram Oral 3 times a day. ergocalciferol (Vitamin D2 50,000 intl units (1.25 mg) oral capsule) 1 cap(s) Oral Thursday, Thursday and Thursday. formoterol-mometason e (Dulera 100 mcg-5 mcg/inh inhalation aerosol) 2 puff(s) Inhalation 2 times a day as needed shortness of breath or wheezing. gabapentin (gabapentin 600 mg oral tablet) 1 tab(s) Oral 3 times a day. guanFACINE (guanFACINE 1 mg oral tablet) 1 tab(s) Oral 3 times a day. lamoTRIgine (lamoTRIgine 100 mg oral tablet) 3 tab(s) Oral once a day (at bedtime). levothyroxine (levothyroxine 25 mcg (0.025 mg) oral capsule) 1 cap(s) Oral every day. topiramate (Topamax 100 mg oral tablet) 1 tab(s) Oral 2 times a day. venlafaxine (venlafaxine 75 mg oral tablet) 1 tab(s) Oral 2 times a day. Visit Information Allergies: Substance Reaction Symptoms Type Comments bleach amoxicillin Drug ibuprofen Drug ketorolac Drug sulfa drug Drug time release capsule Drug Vital Signs: Vitals and Measurements this Visit (last charted value for your 07/20/2018 visit) Vital Signs This Visit Temperature Oral: 37.0 DegC Peripheral Pulse Rate: 89 bpm Respiratory Rate: 16 br/min Systolic Blood Pressure: 122 mmHg Diastolic Blood Pressure: 88 mmHg SpO2: 98 % Oxygen Therapy: Room air Measurements This Visit Height/Length Dosin.100 cm Height/Length Estimated: 165.100 cm Weight Dosin.620 kg Weight Estimated: 135.620 kg Problems List: Problem Onset Comments Anxiety Anxiety and depression Back pain Diabetes mellitus type 2 Gastric bypass Lumbar strain Migraine Smoker 12-JAN-2014 12:37:00 Added secondary to documentation in Social History. Patient Education Recurrent Migraine Headache A migraine headache is very bad, throbbing pain that is usually on one side of your head. Recurrent migraines keep coming back (recurring). Talk with your doctor about what things may bring on (trigger) your migraine headaches. Follow these instructions at home: Medicines ? Take fyys-yyx-cjhjcaf and prescription medicines only as told by your doctor. ? Do not drive or use heavy machinery while taking prescription pain medicine. Lifestyle ? Do not use any products that contain nicotine or tobacco, such as cigarettes and e-cigarettes. If you need help quitting, ask your doctor. ? Limit alcohol intake to no more than 1 drink a day for non women and 2 drinks a day for men. One drink equals 12 oz of beer, 5 oz of wine, or 1? oz of hard liquor. ? Get 7?9 hours of sleep each night. ? Lessen any stress in your life. Ask your doctor about ways to lower your stress. ? Stay at a healthy weight. Talk with your doctor if you need help losing weight. ? Get regular exercise. General instructions ? Keep a journal to find out if certain things bring on migraine headaches. For example, write down: ? What you eat and drink. ? How much sleep you get. ? Any change to your diet or medicines. ? Lie down in a dark, quiet room when you have a migraine. ? Try placing a cool towel over your head when you have a migraine. ? Keep lights dim if bright lights bother you or make your migraines worse. ? Keep all follow-up visits as told by your doctor. This is important. Contact a doctor if: ? Medicine does not help your migraines. ? Your pain keeps coming back. ? You have a fever. ? You have weight loss without trying. Get help right away if: ? Your migraine becomes really bad and medicine does not help. ? You have a stiff neck. ? You have trouble seeing. ? Your muscles are weak or you lose control of your muscles. ? You lose your balance or have trouble walking. ? You feel like you will pass out (faint) or you pass out. ? You have really bad symptoms that are different than your first symptoms. ? You start having sudden, very bad headaches that last for one second or less, like a thunderclap. Summary ? A migraine headache is very bad, throbbing pain that is usually on one side of your head. ? Talk with your doctor about what things may bring on (trigger) your migraine headaches. ? Take qdji-xyd-mkzrjlk and prescription medicines only as told by your doctor. ? Lie down in a dark, quiet room when you have a migraine. ? Keep a journal about what you eat and drink, how much sleep you get, and any changes to your medicines. This can help you find out if certain things make you have migraine headaches. This information is not intended to replace advice given to you by your health care provider. Make sure you discuss any questions you have with your health care provider. Document Released: 04/07/2009 Document Revised: 05/22/2017 Document Reviewed: 05/22/2017 [employer] Interactive Patient Education ? 2017 [employer] Viruses or Bacteria What?s got you sick? Antibiotics only treat bacterial infections. Viral illnesses cannot be treated with antibiotics. When an antibiotic is not prescribed, ask your healthcare professional for tips on how to relieve symptoms and feel better. Usual Cause Illness Viruses Bacteria Antibiotic Needed Cold/Runny Nose NO Bronchitis/Chest Cold (in otherwise healthy children and adults) NO Whooping Cough Yes Flu NO Strep Throat Yes Sore Throat (except strep) NO Fluid in the middle ear (otitis media with effusion) NO Urinary Tract Infection Yes Antibiotics Aren?t Always the Answer www.cdc.gov/getsmart GET SMART Know When Antibiotics Work U.S. Department of Health and Human Services Centers for Disease Control and Prevention March 2014 [facility] Coding Summaryon 04-09-2018 Coding Summary CODING DATE: 04/09/2018 [facility] STATUS: Home PAYOR: Medicaid HMO ADMIT DX: REASON FOR VISIT DX: R51 Headache FINAL DX: PRINCIPAL: R51 Headache SECONDARY: PROCEDURES DOCTOR NAME DATE NOTE: The code number assigned matches the documented diagnosis and / or procedure in the patient's chart. However, the narrative phrase printed from the coding software may appear abbreviated, or result in slightly different terminology. Coded By: Ryan Mchugh' Date Saved: 04/09/2018 11:21 am [facility] Coding Summary CODING DATE: 04/09/2018 [facility] STATUS: Home PAYOR: Medicaid HMO ADMIT DX: REASON FOR VISIT DX: R51 Headache FINAL DX: PRINCIPAL: R51 Headache SECONDARY: PROCEDURES DOCTOR NAME DATE NOTE: The code number assigned matches the documented diagnosis and / or procedure in the patient's chart. However, the narrative phrase printed from the coding software may appear abbreviated, or result in slightly different terminology. Revised Coded By: Ryan Mchugh' Revised Date Saved: 03/31/2018 12:28 pm [facility] Coding Queryon 04-02-2018 Coding Query Can you please finalize your chart when complete? This is the second request sent to you for this account. Thanks. [Electronically Signed on: 04/05/2018 07:58 EDT] Nolan Zheng DO [Verified on: 04/05/2018 07:58 EDT] Nolan Zheng DO [Transcribed on: 04/02/2018 09:47 EDT] [facility] Coding Queryon 03-31-2018 Coding Query Can you please finalize your chart when complete? Thanks. [Electronically Signed on: 04/09/2018 00:04 EDT] Nolan Zheng DO [Verified on: 04/09/2018 00:04 EDT] Nolan Zheng DO [Transcribed on: 03/31/2018 12:28 EDT] [facility] Coding Query Can you please finalize your chart when finished? Thanks. [Electronically Signed on: 04/01/2018 10:59 EDT] TIFFANIE CASTRO [Verified on: 04/01/2018 10:59 EDT] TIFFANIE CASTRO [Transcribed on: 03/31/2018 12:27 EDT] RR Normal [facility] ED Clinical Summaryon 2017 ED Clinical Summary [facility] - Emergency Department [address] [place] [id number] ED Clinical Summary PERSON INFORMATION Name: GABI COOMBS Age: 47 Years Sex: FEMALE : [birth year] MRN: Acct#: Visit Reason: Headache - Recurrent; MONTOYA - Headache; HEADACHE Arrival: 03/05/18 20:29:00 Discharge: 03/05/18 21:25:00 LOS: 000 00:56 Check In: 03/05/18 20:29:00 Checkout:03/05/18 21:25:00 Address: [address] [facility] [address] PCP: Juarez Corado PROVIDER INFORMATION Provider Role Assigned Unassigned TIFFANIE CASTRO ED PA 03/05/18 20:32:00 03/05/18 20:42:38 Min RN, Purvi ED Nurse 03/05/18 20:38:54 Nolan Zheng DO ED Provider 03/05/18 20:43:49 VITALS INFORMATION Vital Sign Triage Latest Temperature Tympanic Temperature Temporal Artery Pulse Rate 88 bpm 88 bpm O2 Sat 98 % 98 % Respiratory Rate 16 br/min 16 br/min Blood Pressure 150 mmHg/92 mmHg 150 mmHg/92 mmHg MEDICAL INFORMATION Medications Given: Medication Dose Route nalbuphine 10 mg IM promethazine 25 mg IM Allergy Information: sulfa drug; ketorolac; amoxicillin; ibuprofen; bleach; time release capsule PHYSICIAN DOCUMENTATION DISCHARGE INFORMATION: Discharge Disposition: Home Discharge Location: Home PATIENT EDUCATION INFORMATION Instructions: Tension Headache, Adult Follow-Up: With: Address: When: Juarez Corado [address] [place] [address] [id number] Business (1) Within 3 to 5 days Comments: home call Dr Corado on Thursday for recheck apt ask Dr Corado about the injectable form of Imitrex--it works very well You are welcomed to return anytime. Mary H ELYSE< ER PHYSICIAN< Leonel Bender Stephanie DIAGNOSIS: Recurrent occipital headache Patient Understands: Yes - Patient/family/careg iver verbalizes understanding of instructions given Comment: [facility] ED Note - Physicianon 2017 ED Note - Physician Patient: GABI COOMBS Age: 47 years Sex: FEMALE : 66 Associated Diagnoses: Recurrent occipital headache Author: Nolan Zheng DO Basic Information Time seen: Date & time 03/05/18 20:54:00. History source: Patient. Arrival mode: Private vehicle. History limitation: None. History of Present Illness The patient presents with headache, Similar to other headaches, onset past 48 hours, gradual, across the forehead and to the temples, rad to the auricular area bilat; and Constant, with a throbbing component; states much stress at home, cause (she is getting a divorce). Review of Systems Additional review of systems information: All other systems reviewed and otherwise negative. Health Status Allergies: Allergic Reactions (Selected) Severity Not Documented Amoxicillin- No reactions were documented. Bleach- No reactions were documented. Ibuprofen- No reactions were documented. Ketorolac- No reactions were documented. Sulfa drug- No reactions were documented. Time release capsule- No reactions were documented.. Medications: (Selected) Documented Medications Documented Dulera 100 mcg-5 mcg/inh inhalation aerosol: 2 puff(s), INH, BID, PRN: shortness of breath or wheezing, 0 Refill(s) Flexeril: 10 mg, PO, TID, 0 Refill(s) SUMAtriptan 100 mg oral tablet: 100 mg, 1 tab(s), PO, Daily, PRN: as needed for migraine headache, 0 Refill(s) Topamax 100 mg oral tablet: 100 mg, 1 tab(s), PO, BID, 0 Refill(s) Ventolin HFA 90 mcg/inh inhalation aerosol: 2 puff(s), INH, QID, PRN: for wheezing, 0 Refill(s) Vitamin D2 50,000 intl units (1.25 mg) oral capsule: 50,000 International_Unit, 1 cap(s), PO, MWF, 0 Refill(s) buPROPion 200 mg/12 hours (SR) oral tablet, extended release: 200 mg, 1 tab(s), PO, Daily, 0 Refill(s) busPIRone 5 mg oral tablet: 5 mg, 1 tab(s), PO, TID, 0 Refill(s) calcium (as carbonate)-vitamin D 600 mg-400 intl units oral tablet: 1 tab(s), PO, BID, 0 Refill(s) gabapentin 600 mg oral tablet: 600 mg, 1 tab(s), PO, TID, 0 Refill(s) guanFACINE 1 mg oral tablet: 1 mg, 1 tab(s), PO, TID, 0 Refill(s) lamoTRIgine 100 mg oral tablet: 300 mg, 3 tab(s), PO, Once a day (at bedtime), 0 Refill(s) levothyroxine 25 mcg (0.025 mg) oral capsule: 25 mcg, 1 cap(s), PO, Daily, 0 Refill(s) venlafaxine 75 mg oral tablet: 75 mg, 1 tab(s), PO, BID, 0 Refill(s). Past Medical/ Family/ Social History Medical history: Resolved ([id number]): Resolved. Bypass ([id number]): Resolved. Comments: - Done in 1999 Back (922.31): Resolved. Comments: - surgery in 2011. Surgical history: Gastric bypass ([id number]).. Family history: No family history items have been selected or recorded.. Social history: Social & Psychosocial Habits Tobacco 03/02/2017 Smoking tobacco use: Current Every Day Smoker Type: Cigarettes Number used per day: 2 PPD 01/30/2018 Smoking tobacco use: 5-9 cigarettes (between 1 . Problem list: Active Problems (8) Anxiety Anxiety and depression Back pain Diabetes mellitus type 2 Gastric bypass Lumbar strain Migraine Smoker . Physical Examination Vital Signs Pleasant, seen in room no 3, appears uncomfortable from headache, alert, oriented, neck supple, good eye contact, reproducible montoya bilat, forehead and bitemporal, pupils 3.0 mm effie, eomi, no nystagmus, face symmetric, speech precise, ambulatory, pp neg, Rhomberg neg hrrr, no m, pmi left chest . Reexamination/ Reevaluation Interventions: Feels much improved almost immediately after provided pain medicatioins.. Impression and Plan Diagnosis Recurrent occipital headache ([id number] R51, Discharge, Medical) Plan Condition: Improved. Disposition: Discharged: time 03/05/18 20:59:00. Prescriptions: Launch prescriptions Pharmacy: Phenergan (Order): 25 mg, IM, Once Nubain (Order): 10 mg, IM, Once. Patient was given the following educational materials: Tension Headache, Adult. Follow up with: Juarez Corado Within 3 to [address] Corado on Thursday for recheck apt ask Dr Corado about the injectable form of Imitrex--it works very well You are welcomed to return anytime. Mary ZHENG< ER PHYSICIAN< Leonel Saravia. Counseled: Patient, Regarding diagnosis, Regarding diagnostic results, Regarding treatment plan, Regarding prescription, Patient indicated understanding of instructions. [Electronically Signed on: 04/05/2018 07:58 EDT] Nolan Zheng DO [Electronically Signed on: 04/09/2018 00:04 EDT] Nolan Zheng DO [Verified on: 04/05/2018 07:58 EDT] Nolan Zheng DO [facility] ED Note - Physician Patient: GABI COOMBS Age: 47 years Sex: FEMALE : [birth year] Associated Diagnoses: None Author: TIFFANIE CASTRO Basic Information Time seen: Date & time 03/05/18 20:34:00. History source: Patient. Arrival mode: Private vehicle. History of Present Illness I did not see this patient. Please refer to supervising physician's note for further documentation and diagnosis. Health Status Allergies: Allergic Reactions (Selected) Severity Not Documented Amoxicillin- No reactions were documented. Bleach- No reactions were documented. Ibuprofen- No reactions were documented. Ketorolac- No reactions were documented. Sulfa drug- No reactions were documented. Time release capsule- No reactions were documented.. Impression and Plan Plan Condition: Stable. Counseled: Patient, Regarding diagnosis, Regarding treatment plan, Patient indicated understanding of instructions. [Electronically Signed on: 04/01/2018 10:59 EDT] TIFFANIE CASTRO [Verified on: 04/01/2018 10:59 EDT] TIFFANIE CASTRO [facility] ED Patient Education Noteon 03-05-2018 ED Patient Education Note Education Materials Neurology Tension Headache A tension headache is a feeling of pain, pressure, or aching that is often felt over the front and sides of the head. The pain can be dull, or it can feel tight (constricting). Tension headaches are not normally associated with nausea or vomiting, and they do not get worse with physical activity. Tension headaches can last from 30 minutes to several days. This is the most common type of headache. CAUSES The exact cause of this condition is not known. Tension headaches often begin after stress, anxiety, or depression. Other triggers may include: ? Alcohol. ? Too much caffeine, or caffeine withdrawal. ? Respiratory infections, such as colds, flu, or sinus infections. ? Dental problems or teeth clenching. ? Fatigue. ? Holding your head and neck in the same position for a long period of time, such as while using a computer. ? Smoking. SYMPTOMS Symptoms of this condition include: ? A feeling of pressure around the head. ? Dull, aching head pain. ? Pain felt over the front and sides of the head. ? Tenderness in the muscles of the head, neck, and shoulders. DIAGNOSIS This condition may be diagnosed based on your symptoms and a physical exam. Tests may be done, such as a CT scan or an MRI of your head. These tests may be done if your symptoms are severe or unusual. TREATMENT This condition may be treated with lifestyle changes and medicines to help relieve symptoms. HOME CARE INSTRUCTIONS Managing Pain ? Take gccs-ggf-puitgma and prescription medicines only as told by your health care provider. ? Lie down in a dark, quiet room when you have a headache. ? If directed, apply ice to the head and neck area: ? Put ice in a plastic bag. ? Place a towel between your skin and the bag. ? Leave the ice on for 20 minutes, 2?3 times per day. ? Use a heating pad or a hot shower to apply heat to the head and neck area as told by your health care provider. Eating and Drinking ? Eat meals on a regular schedule. ? Limit alcohol use. ? Decrease your caffeine intake, or stop using caffeine. General Instructions ? Keep all follow-up visits as told by your health care provider. This is important. ? Keep a headache journal to help find out what may trigger your headaches. For example, write down: ? What you eat and drink. ? How much sleep you get. ? Any change to your diet or medicines. ? Try massage or other relaxation techniques. ? Limit stress. ? Sit up straight, and avoid tensing your muscles. ? Do not use tobacco products, including cigarettes, chewing tobacco, or e-cigarettes. If you need help quitting, ask your health care provider. ? Exercise regularly as told by your health care provider. ? Get 7?9 hours of sleep, or the amount recommended by your health care provider. SEEK MEDICAL CARE IF: ? Your symptoms are not helped by medicine. ? You have a headache that is different from what you normally experience. ? You have nausea or you vomit. ? You have a fever. SEEK IMMEDIATE MEDICAL CARE IF: ? Your headache becomes severe. ? You have repeated vomiting. ? You have a stiff neck. ? You have a loss of vision. ? You have problems with speech. ? You have pain in your eye or ear. ? You have muscular weakness or loss of muscle control. ? You lose your balance or you have trouble walking. ? You feel faint or you pass out. ? You have confusion. This information is not intended to replace advice given to you by your health care provider. Make sure you discuss any questions you have with your health care provider. Document Released: 06/29/2006 Document Revised: 03/19/2016 Document Reviewed: 10/22/2015 [employer] Interactive Patient Education ? 2017 [employer]. Normal [facility] ED Patient Summaryon 018 ED Patient Summary [facility] - Emergency Department [address] [place] [address] PATIENT DISCHARGE INSTRUCTIONS Patient Information Name: GABI COOMBS Age: 47 Years Date of : [birth year] Reason For Visit: Headache - Recurrent; MONTOYA - Headache; HEADACHE Arrival Time: 03/05/18 20:29:00 Primary Care Physician: Juarez Corado Attending Physician: Nolan Zheng DO Comment: Visit Diagnosis: Diagnoses This Visit MONTOYA - Headache ([id number]) Headache - Recurrent ([id number]) Recurrent occipital headache (R51) If you received any narcotics, sedation, or any other medication that causes drowsiness for the next 24 hours, unless otherwise directed: ? Do not drive a car. ? Do not operate machinery such as power tools, lawn mowers, drills, sewing machines, or stoves ? Avoid alcoholic beverages and drugs for allergies, nerves, or sleep ? Do not make important personal or business decisions or sign any legal documents With: Address: When: Juarez Corado [address] [place] [id number] Business (1) Within 3 to 5 days Comments: home call Dr Corado on Thursday for recheck apt ask Dr Corado about the injectable form of Imitrex--it works very well You are welcomed to return anytime. Mary ZHENG< ER PHYSICIAN< Leonel Saravia Medication Information: The exam and treatment you received today in the [facility] Emergency Department were for an urgent problem and are not intended as complete care. It is important for you to follow up with a doctor, nurse practitioner, or physician?s surveyor's assistant for ongoing care. If your symptoms become worse or you do not improve as expected and you are unable to reach your usual health care provider, you should return to the Emergency Department, we are available 24 hours a day. For those patients who have received Radiology results, the interpretation of your X-ray as given to you by our Emergency Department physician is only a preliminary report. The Radiologist will review your films and if there is a change in the diagnosis you will be notified by phone. Please make sure you have provided a working phone number so we can reach you if necessary. In the event that you had a lab culture while you were a patient in the Emergency Department, you will be notified by phone if there is a need to change your antibiotic. Please make sure you have provided a working phone number so we can reach you if necessary. [facility] Emergency Department has provided you with a complete list of medications post discharge. Please inform your electronic commerce specialist/provider of your visit and for further instruction on these medications. Any specific questions regarding your chronic medications and dosages should be discussed with your primary care physician(s) and/or pharmacist. Medications to Continue That Have Not Changed Other Medications albuterol (Ventolin HFA 90 mcg/inh inhalation aerosol) 2 puff(s) Inhalation 4 times a day as needed for wheezing. buPROPion (buPROPion 200 mg/12 hours (SR) oral tablet, extended release) 1 tab(s) Oral every day. busPIRone (busPIRone 5 mg oral tablet) 1 tab(s) Oral 3 times a day. calcium-vitamin D (calcium (as carbonate)-vitamin D 600 mg-400 intl units oral tablet) 1 tab(s) Oral 2 times a day. cyclobenzaprine (Flexeril) 10 Milligram Oral 3 times a day. ergocalciferol (Vitamin D2 50,000 intl units (1.25 mg) oral capsule) 1 cap Oral Thursday, Thursday and Thursday. formoterol-mometason e (Dulera 100 mcg-5 mcg/inh inhalation aerosol) 2 puff(s) Inhalation 2 times a day as needed shortness of breath or wheezing. gabapentin (gabapentin 600 mg oral tablet) 1 tab(s) Oral 3 times a day. guanFACINE (guanFACINE 1 mg oral tablet) 1 tab(s) Oral 3 times a day. lamoTRIgine (lamoTRIgine 100 mg oral tablet) 3 tab(s) Oral once a day (at bedtime). levothyroxine (levothyroxine 25 mcg (0.025 mg) oral capsule) 1 cap Oral every day. SUMAtriptan (SUMAtriptan 100 mg oral tablet) 1 tab(s) Oral every day as needed as needed for migraine headache. topiramate (Topamax 100 mg oral tablet) 1 tab(s) Oral 2 times a day. venlafaxine (venlafaxine 75 mg oral tablet) 1 tab(s) Oral 2 times a day. Visit Information Allergies: Substance Reaction Symptoms Type Comments bleach amoxicillin Drug ibuprofen Drug ketorolac Drug sulfa drug Drug time release capsule Drug Vital Signs: Vitals and Measurements this Visit (last charted value for your 03/05/2018 visit) Vital Signs This Visit Temperature Temporal: 36.4 DegC Peripheral Pulse Rate: 88 bpm Respiratory Rate: 16 br/min Systolic Blood Pressure: 150 mmHg Diastolic Blood Pressure: 92 mmHg SpO2: 98 % Oxygen Therapy: Room air Measurements This Visit Height/Length Dosin.100 cm Height/Length Estimated: 165.100 cm Weight Dosin.890 kg Weight Estimated: 137.890 kg Problems List: Problem Onset Comments Anxiety Anxiety and depression Back pain Diabetes mellitus type 2 Gastric bypass Lumbar strain Migraine Smoker 12-JAN-2014 12:37:00 Added secondary to documentation in Social History. Patient Education Tension Headache A tension headache is a feeling of pain, pressure, or aching that is often felt over the front and sides of the head. The pain can be dull, or it can feel tight (constricting). Tension headaches are not normally associated with nausea or vomiting, and they do not get worse with physical activity. Tension headaches can last from 30 minutes to several days. This is the most common type of headache. CAUSES The exact cause of this condition is not known. Tension headaches often begin after stress, anxiety, or depression. Other triggers may include: ? Alcohol. ? Too much caffeine, or caffeine withdrawal. ? Respiratory infections, such as colds, flu, or sinus infections. ? Dental problems or teeth clenching. ? Fatigue. ? Holding your head and neck in the same position for a long period of time, such as while using a computer. ? Smoking. SYMPTOMS Symptoms of this condition include: ? A feeling of pressure around the head. ? Dull, aching head pain. ? Pain felt over the front and sides of the head. ? Tenderness in the muscles of the head, neck, and shoulders. DIAGNOSIS This condition may be diagnosed based on your symptoms and a physical exam. Tests may be done, such as a CT scan or an MRI of your head. These tests may be done if your symptoms are severe or unusual. TREATMENT This condition may be treated with lifestyle changes and medicines to help relieve symptoms. HOME CARE INSTRUCTIONS Managing Pain ? Take ajws-ftf-xflihir and prescription medicines only as told by your health care provider. ? Lie down in a dark, quiet room when you have a headache. ? If directed, apply ice to the head and neck area: ? Put ice in a plastic bag. ? Place a towel between your skin and the bag. ? Leave the ice on for 20 minutes, 2?3 times per day. ? Use a heating pad or a hot shower to apply heat to the head and neck area as told by your health care provider. Eating and Drinking ? Eat meals on a regular schedule. ? Limit alcohol use. ? Decrease your caffeine intake, or stop using caffeine. General Instructions ? Keep all follow-up visits as told by your health care provider. This is important. ? Keep a headache journal to help find out what may trigger your headaches. For example, write down: ? What you eat and drink. ? How much sleep you get. ? Any change to your diet or medicines. ? Try massage or other relaxation techniques. ? Limit stress. ? Sit up straight, and avoid tensing your muscles. ? Do not use tobacco products, including cigarettes, chewing tobacco, or e-cigarettes. If you need help quitting, ask your health care provider. ? Exercise regularly as told by your health care provider. ? Get 7?9 hours of sleep, or the amount recommended by your health care provider. SEEK MEDICAL CARE IF: ? Your symptoms are not helped by medicine. ? You have a headache that is different from what you normally experience. ? You have nausea or you vomit. ? You have a fever. SEEK IMMEDIATE MEDICAL CARE IF: ? Your headache becomes severe. ? You have repeated vomiting. ? You have a stiff neck. ? You have a loss of vision. ? You have problems with speech. ? You have pain in your eye or ear. ? You have muscular weakness or loss of muscle control. ? You lose your balance or you have trouble walking. ? You feel faint or you pass out. ? You have confusion. This information is not intended to replace advice given to you by your health care provider. Make sure you discuss any questions you have with your health care provider. Document Released: 06/29/2006 Document Revised: 03/19/2016 Document Reviewed: 10/22/2015 [employer] Interactive Patient Education ? 2017 [employer] Viruses or Bacteria What?s got you sick? Antibiotics only treat bacterial infections. Viral illnesses cannot be treated with antibiotics. When an antibiotic is not prescribed, ask your healthcare professional for tips on how to relieve symptoms and feel better. Usual Cause Illness Viruses Bacteria Antibiotic Needed Cold/Runny Nose NO Bronchitis/Chest Cold (in otherwise healthy children and adults) NO Whooping Cough Yes Flu NO Strep Throat Yes Sore Throat (except strep) NO Fluid in the middle ear (otitis media with effusion) NO Urinary Tract Infection Yes Antibiotics Aren?t Always the Answer www.cdc.gov/getsmart GET SMART Know When Antibiotics Work U.S. Department of Health and Human Services Centers for Disease Control and Prevention March 2014 [facility] Encounters Encounter Date Encounter Type Care Provider Facility Start: 12-17-[address] MYLES MARIE . Facility: Start: 01-31-2019 End: 02-01-2019 Patient encounter procedure [facility] Start: 10-13-2018 End: 10-16-2018 Patient encounter procedure [facility] Start: 10-12-2018 End: 10-15-2018 Patient encounter procedure [facility] Start: 10-11-2018 End: 10-14-2018 Patient encounter procedure [facility] Start: 09-27-2018 End: 09-28-2018 Patient encounter procedure [facility] Procedures Date Procedure Procedure Detail Performing Clinician Start: 01-31-2019 25 hydroxy includes fractions if performed KANCHAN NARVAEZ Start: 01-31-2019 Assay of free thyroxine KANCHAN NARVAEZ Start: 01-31-2019 Assay of thyroglobulin KANCHAN NARVAEZ Start: 01-31-2019 Assay of thyroid sti mulating hormone tsh KANCHAN NARVAEZ Start: 01-31-2019 Thyroglobulin antibody KANCHAN NARVAEZ Start: 10-13-2018 Thyroid carcinoma me tastases img whole body KANCHAN GARCIAOSA Start: 09-27-2018 25 hydroxy includes fractions if performed KANCHAN GARCIAOSA Payers Date Payer Category Payer Unknown [id number] 2.16.8 [id number] 1968 Unknown [id number] 2.16.8 [id number] 1968 Unknown [id number] 2.16.8 [id number] 1968 Unknown [id number] 2.16.8 [id number] 1968 Unknown [id number] 2.16.8 [id number] 1968 Unknown [id number] 2.16.8 [id number] 1968 Unknown [id number] 2.16.8 [id number] 1968 Unknown [id number] 2.16.84 [id number] 1959 Unknown [id number] Summary Purpose Family History No Family History Records FoundNo Family History Records FoundNo Family History Records FoundNo Family History Records Found Advance Directives No Advanced Directives Records FoundNo Advanced Directives Records FoundNo Advanced Directives Records FoundNo Advanced Directives Records Found Additional Source Comments INFORMATION SOURCE (unrecogn ized section and content) DATE CREATED AUTHOR 10/17/2018 [facility] DATE CREATED AUTHOR AUTHOR'S ORGANIZ ATION 02/01/2019 [facility] DATE CREATED AUTHOR AUTHOR'S ORGANIZ ATION 02/25/2019 [facility] DATE CREATED AUTHOR AUTHOR'S ORGANIZ ATION 12/19/2022 [facility] FOR RECORDS PERTAINING TO PATIENTS WHO ARE OR HAVE BEEN ENROLLED IN A CHEMICAL DEPENDENCY/SUBSTANCEABUSE PROGRAM, SOME INFORMATION MAY BE OMITTED. This clinical summary was aggregated from multiple sources. Caution should be exercised in using it in the provision of clinical care. This summary normalizes information from multiple sources, and as a consequence, information in this document may materially change the coding, format and clinical context of patient data. In addition, data may be omitted in some cases. CLINICAL DECISIONS SHOULD BE BASED ON THE PRIMARY CLINICAL RECORDS. [employer] [facility]. provides no warranty or guarantee of the accuracy or completeness of information in this document.
[2023-11-25 07:49] LABS: Amphetamine Screen Urine NEGATIVE (NEGATIVE); Barbiturates Screen Urine NEGATIVE (NEGATIVE); Benzodiazepines Screen Urine NEGATIVE (NEGATIVE); Buprenorphine Screen Urine NEGATIVE (NEGATIVE); Cannabinoid Screen Urine NEGATIVE (NEGATIVE); Cocaine Screen Urine NEGATIVE (NEGATIVE); Methadone Screen Urine NEGATIVE (NEGATIVE); Methamphetamines Screen Urine NEGATIVE (NEGATIVE); Opiate Screen Urine NEGATIVE (NEGATIVE); Oxycodone Screen Urine NEGATIVE (NEGATIVE); Phencyclidine Screen Urine NEGATIVE (NEGATIVE); Tricyclic Antidepressant Urine NEGATIVE (NEGATIVE)
== END 2023-11-24 21:19 | disposition home or self-care (01) ==
LOC: LAB 21:18
PROVIDERS: PCP Nurse Practitioner; Visit Provider Nurse Practitioner
DX: E03.9 Hypothyroidism, unspecified (principal); K92.1 Melena; Z76.0 Encounter for issue of repeat prescription
CPT/HCPCS: 36415; 80048; 80307; 84439; 84443; 85027

== ENCOUNTER 2023-12-08 21:44 | Outpatient (REF) | payer OTHER, SELFPAY ==
--- OUTSIDE RECORDS SUMMARY | 2023-12-08 21:53 | XMS_ITS | CCD ---
Author Organization [facility] Inform ion Partnership [facility] Care Team Providers Care Bleacher Lard Name Role Phone MOALAINA, KANCHAN F Referring Unavailable ZAMUDIO, CATHY A Primary Care Unavailable MOOSA, KANCHAN F Referring Unavailable ZAMUDIO, CATHY A Primary Care Unavailable MOOSA, KANCHAN F Referring Unavailable ZAMUDIO, CATHY A Primary Care Unavailable MOOSA, KANCHAN F Referring Unavailable ZAMUDIO, CATHY A Primary Care Unavailable MOOSA, KANCHAN F Referring Unavailable ZAMUDIO, CATHY A Primary Care Unavailable MOOSA, KANCHAN F Referring Unavailable JUAREZ CORADO Primary Care Unavailable MOOSA, KANCHAN F Referring Unavailable ZAMUDIO, CATHY A Primary Care Unavailable GRILLIS ., DR MYLES Roy Attending Unavaila ble GRILLIS ., DR MYLES Roy Admitting Unavaila ble Allergies Allergy Classification Reported Allergen(s) Allergy Type Date of Onset Reaction(s) Facility (1 source) Ibuprofen Drug Allergy [facility] Repository Problems Problem Classification Problem Date Documented [...] Summaryon 02-24-2019 Coding Summary CODING DATE: 02/24/2019 [facility] STATUS: Home PAYOR: Medicaid HMO ADMIT [...] Oanh Mchugh Date Saved: 02/24/2019 03:05 pm [facility] Coding Summary CODING DATE: 02/24/2019 [facility] STATUS: Home PAYOR: Medicaid HMO ADMIT [...] Mchugh Revised Date Saved: 02/24/2019 03:02 pm [facility] Thyroglobulinon 02-01-2019 Thyroglobulin <0.2 Normal 0.0-63.4 [facility] Comment on above: Result Comment: Thyr oglobulin (Tg) is measured by the Siemens Immulite 2000 method, which has a lower limit of quantification of 0.2 ng/mL. Tg results less than 0.2 ng/mL are consistent with the absence of thyroglobulin-producing thyroid tissue. Results obtained with any different assay methods or kits cannot be used interchangeably. Performed By: #### F T4, TSH #### [facility] [address] [place] [address] Bellows Tester: Lincoln Ding DO #### VD25, THYGLA, THYGL #### [facility] [employer] [address] [place], [place] [id number] Bellows Tester: Ron Adorno MD Thyroglobulin Abon 9 Thyroglobulin Ab Qn [IU]/mL Normal 0.0-40.0 [facility] Comment on above: Performed By: #### F T4, TSH #### [facility] [address] [place] [address] Bellows Tester: Lincoln Ding DO #### VD25, THYGLA, THYGL #### [address] [address] Bellows Tester: Ron Adorno MD Vitamin D 25 OHon 02-01-2019 Vitamin D 25 OH 29.1 ng/mL Low 30.0-100.0 [facility] Comment on above: Result Comment: Reference Range: Vitamin D status Range Deficiency <20 ng/mL Mild Deficiency 20-30 ng/mL Sufficiency 30-100 ng/mL Toxicity >100 ng/mL Performed By: #### F T4, TSH #### [facility] [address] [place] [address] Bellows Tester: Lincoln Ding DO #### VD25, THYGLA, THYGL #### [address] [address] Bellows Tester: Ron Adorno MD Thyroid Stim. Horm.on 2018 TSH Qn m[IU]/L Low 0.30-5.00 [facility] Comment on above: Performed By: #### F T4, TSH #### [facility] [address] [place] [address] Bellows Tester: Lincoln Ding DO #### VD25, THYGLA, THYGL #### [address] [address] Bellows Tester: Ron Adorno MD Thyroxine, Freeon 01-31-2019 Thyroxine, Free 1.70 ng/dL Normal 0.93-1.70 [facility] Comment on above: Performed By: #### F T4, TSH #### [facility] [address] [place] [address] Bellows Tester: Lincoln Ding DO #### VD25, JANINE MACDONALD #### [facility] [address] [place] [address] Bellows Tester: Ron Adorno MD Coding Queryon 01-05-2019 Coding Query Can you please finalize your chart when your documentation is complete? Thanks. [Electronically Signed on: 02/24/2019 07:49 EDT] Nolan Zheng DO [Verified on: 02/24/2019 07:49 EDT] Nolan Zheng DO [Transcribed on: 01/05/2019 15:14 EDT] [facility] ED Clinical Summaryon 2018 ED [facility] [address] [place] [address] ED Clinical Summary PERSON INFORMATION Name: GABI COOMBS Age: 48 Years Sex: FEMALE : [birth year] MRN: Acct#: Visit Reason: Eye pain; Eye problem; C/O BURN EYE, PAIN RIGHT EYE Arrival: 01/02/19 21:08:00 Discharge: 01/02/19 22:15:00 LOS: 000 01:07 Check In: 01/02/19 21:08:00 Checkout:01/02/19 22:15:00 Address: [address] [place] [address] PCP: Juarez Corado PROVIDER INFORMATION Provider Role Assigned Unassigned Cher Stark RN ED Nurse 01/02/19 21:13:08 Nolan Zheng DO [...] PATIENT EDUCATION INFORMATION Instructions: Eye Foreign Body, Gxfb-fq-Mbov Follow-Up: With: Address: When: MAGNO GOOD [address] [place] [id number] [email or web address] In 1 day 01/03/19 Comments: home use [...] iver verbalizes understanding of instructions given Comment: [facility] ED Patient Education Noteon 01-03-2019 [...] Follow these instructions at home: ? Take zlvc-ysl-yxmhwam and prescription medicines only as told by [...] 12/17/2010 Document Revised: 07/15/2017 Document Reviewed: 07/15/2017 [employer] Interactive Patient Education ? 2019 [employer]. [facility] ED Patient Summaryon 019 ED Patient Summary [facility] [address] [place] [address] PATIENT DISCHARGE INSTRUCTIONS Patient Information Name: GABI COOMBS Age: 48 Years Date of : [birth year] Reason For Visit: Eye pain; Eye problem; C/O BURN EYE, PAIN RIGHT EYE Arrival Time: 01/02/19 21:08:00 Primary Care Physician: Juarez Corado Attending Physician: Nolan Zheng DO Comment: Visit Diagnosis: Diagnoses This Visit Eye foreign body (T15.90XA) Eye pain ([id number]) Eye problem ([id number]) Prescription Information: If you have been given a prescription for narcotics, seek immediate medical attention if you have any difficulty breathing or any sudden status changes such as confusion and sleepiness. If you or anyone you know is experiencing suicidal thoughts, mental health, alcohol and/or drug addiction problems; contact the [facility] 02/02 Crisis Hotline -Text 4HJHM ih 446696. If you received any narcotics, sedation, or [...] legal documents With: Address: When: MAGNO GOOD [address] [place] [address] Business (1) In 1 day 01/03/19 Comments: home use ointment in the eye every 4-6 hours the irritation will slowly disappear call Dr Good's office--or eye physician of your choice--in the am 9 am for a recheck apt you are welcomed to return anytime mary zheng, er physician, leonel sullivan rani Medication Information: The exam and treatment you received today in the [facility] Emergency Department were for an urgent problem and are not intended as complete care. It is important for you to follow up with a doctor, nurse practitioner, or physician?s food and nutrition services assistant for ongoing care. If your symptoms [...] so we can reach you if necessary. [facility] has provided you with a complete list of medications post discharge. Please inform your security software engineer/provider of your visit and for further instruction [...] Follow these instructions at home: ? Take fvaj-mhw-jwjnvgo and prescription medicines only as told by [...] 12/17/2010 Document Revised: 07/15/2017 Document Reviewed: 07/15/2017 [employer] Interactive Patient Education ? 2019 [employer] Viruses or Bacteria What?s got you [...] for Disease Control and Prevention March 2014 [facility] Medication Managementon 12-12 Medication Management [id number] [email or web address] [facility] ED Note - Physicianon 2018 ED Note - Physician Patient: GABI COOMBS Age: 48 years Sex: FEMALE : 1970 Associated Diagnoses: Eye foreign body Author: Nolan Zheng DO Basic Information Time [...] Impression and Plan Diagnosis Eye foreign body ([id number] T15.90XA, Discharge, Medical) right, corneal Plan Condition: Improved. Disposition: Discharged: time 01/02/19 21:53:00. Prescriptions: Launch prescriptions Pharmacy: erythromycin ophthalmic (Order): 1 carlton, Right eye, QID. Patient was given the following educational materials: Eye Foreign Body, Woqu-mz-Vykr. Follow up with: ; MAGNO GOOD In [...] [Electronically Signed on: 02/24/2019 07:48 EDT] Nolan Zheng DO [Verified on: 02/24/2019 07:48 EDT] Nolan Zheng DO [facility] Progress Note - Nurseon 12-12 [...] on: 01/02/2019 21:48 EDT] Cher Stark RN [facility] NM THYROID METASTASES SCAN W JERMAINE BODYon 10-13-2018 NM THYROID METASTASES SCAN WHOLE [...] Jina Izquierdo MD 10/13/18 Final result Normal [facility] Coding Summaryon 09-28-2018 Coding Summary CODING DATE: 09/28/2018 FINAL [facility] STATUS: Home PAYOR: Medicaid HMO ADMIT DX: [...] Kelly Tucker Date Saved: 09/28/2018 10:02 am [facility] Coding Summary CODING DATE: 09/28/2018 FINAL [facility] STATUS: Home PAYOR: Medicaid HMO ADMIT DX: [...] Tucker Date Saved: 09/28/2018 10:00 am [facility] Vitamin D 25 OHon 09-28-2018 Vitamin D 25 OH 19.6 ng/mL Low 30.0-100.0 [facility] Comment on above: Result Comment: Reference Range: Vitamin D status Range Deficiency <20 ng/mL Mild Deficiency 20-30 ng/mL Sufficiency 30-100 ng/mL Toxicity >100 ng/mL Performed By: #### V D25 #### [facility] [address] [place], [place] [id number] Bellows Tester: Ron Adorno MD ED Clinical Summaryon 2018 ED Clinical Summary [facility] [address] [place] [address] ED Clinical Summary PERSON INFORMATION Name: GABI COOMBS Age: 48 Years Sex: FEMALE : [birth year] MRN: Acct#: Visit Reason: Headache - Recurrent; HEADACHE Arrival: 09/26/18 00:40:00 Discharge: 09/26/18 02:25:00 LOS: 000 01:45 Check In: 09/26/18 00:40:00 Checkout:09/26/18 02:25:00 Address: [address] [place] [address] PCP: Juarez Corado PROVIDER INFORMATION Provider Role Assigned Unassigned Lincoln SAUCEDO, Cher ED Nurse 09/26/18 00:41:35 Nolan Zheng DO [...] Headache Follow-Up: With: Address: When: Juarez Corado [address] [place] [id number] [facility] () Within 3 to 5 days Comments: home call Dr Corado for a recheck apt you are welcomed to return anytime T H ELYSE< ER PHYSICIAN< H Napoleon Saravia DIAGNOSIS: Recurrent headache Patient Understands: Yes - Patient/family/careg iver verbalizes understanding of instructions given Comment: [facility] ED Note - Physicianon 2018 [...] Medical/ Family/ Social History Medical history: Resolved ([id number]): Resolved. Bypass ([id number]): Resolved. Comments: - Done in 1999 Back (922.31): Resolved. Comments: - surgery in 2011. Surgical history: Gastric bypass ([id number]).. Family history: No family history items have been selected or recorded.. Social history: Social & Psychosocial Habits Tobacco 03/02/2017 Smoking tobacco use: Current Every Day Smoker Type: Cigarettes Number used per day: 2 PPD 01/30/2018 Smoking tobacco use: 5-9 cigarettes (between 07/20/2018 Smoking tobacco use: 10 or more cigarettes (/ . Problem list: Active Problems (8) Anxiety Anxiety and depression Back pain Diabetes mellitus type 2 Gastric bypass Lumbar strain Migraine Smoker . Medical Decision Making Orders Launch Orders Pharmacy: Phenergan (Order): 12.5 mg, IM, Once Benadryl (Order): 25 mg, IM, Once Nubain (Order): 10 mg, IM, Once. Reexamination/ Reevaluation Interventions: Patient felt better. Impression and Plan Diagnosis Recurrent headache ([id number] R51, Discharge, Medical) Plan Condition: Improved. Disposition: Discharged: time 09/26/18 01:37:00. Patient was given the following educational materials: Recurrent Migraine Headache. Follow up with: Juarez Corado Within 3 to [address] Corado for a recheck apt you are welcomed to return anytime T H ELYSE< ER PHYSICIAN< Leonel Saravia. Counseled: Patient, Regarding diagnosis, Regarding diagnostic results, Regarding treatment plan, Regarding prescription, Patient indicated understanding of instructions. [Electronically Signed on: 09/27/2018 07:08 EDT] Nloan Zheng DO [Verified on: 09/27/2018 07:08 EDT] Nolan Zheng DO [facility] ED Patient Education Noteon 09-26-2018 [...] these instructions at home: Medicines ? Take mvos-pwt-cbvmucu and prescription medicines only as told by [...] 03/24/2002 Document Revised: 04/10/2017 Document Reviewed: 04/10/2017 [employer] Interactive Patient Education ? 2018 [employer]. [facility] ED Patient Summaryon 019 ED Patient Summary [facility] [address] [place] [id number] PATIENT DISCHARGE INSTRUCTIONS Patient Information Name: GABI COOMBS Age: 48 Years Date of : [birth year] Reason For Visit: Headache - Recurrent; HEADACHE Arrival Time: 09/26/18 00:40:00 Primary Care Physician: Juarez Corado Attending Physician: Nolan Zheng DO Comment: Visit Diagnosis: Diagnoses This Visit Headache - Recurrent ([id number]) Recurrent headache (R51) If you received any [...] legal documents With: Address: When: Juarez Corado [address] [place] [address] Business (1) Within 3 to 5 days Comments: home call Dr Corado for a recheck apt you are welcomed to return anytime T H ELYSE< ER PHYSICIAN< H Napoleon [facility] Medication Information: The exam and treatment you received today in the [facility] Emergency Department were for an urgent problem and are not intended as complete care. It is important for you to follow up with a doctor, nurse practitioner, or physician?s food and nutrition services assistant for ongoing care. If your symptoms [...] so we can reach you if necessary. [facility] has provided you with a complete list of medications post discharge. Please inform your security software engineer/provider of your visit and for further instruction [...] these instructions at home: Medicines ? Take lwmw-kba-hweqjeh and prescription medicines only as told by [...] 03/24/2002 Document Revised: 04/10/2017 Document Reviewed: 04/10/2017 [employer] Interactive Patient Education ? 2018 [employer] Viruses or Bacteria What?s got you [...] for Disease Control and Prevention March 2014 [facility] Coding Summaryon 09-16-2018 Coding Summary CODING DATE: 09/16/2018 [facility] STATUS: PAYOR: Medicaid HMO ADMIT DX: REASON [...] Oanh Mchugh Date Saved: 09/16/2018 01:11 pm [facility] Coding Summary CODING DATE: 09/16/2018 [facility] STATUS: Home PAYOR: Medicaid HMO ADMIT [...] Oanh Mchugh Date Saved: 09/16/2018 01:10 pm [facility] ED Clinical Summaryon 2018 ED Clinical Summary [facility] [address] [place] [address] ED Clinical Summary PERSON INFORMATION Name: GABI COOMBS Age: 48 Years Sex: FEMALE : [birth year] MRN: Acct#: Visit Reason: Headache - Recurrent; HEADACHE Arrival: 09/15/18 23:17:00 Discharge: 09/15/18 23:42:00 LOS: 000 00:25 Check In: 09/15/18 23:17:00 Checkout:09/15/18 23:42:00 Address: [address] [place] [address] PCP: Juarez Corado PROVIDER INFORMATION Provider Role Assigned Unassigned Chirag Kim MD ED Provider 09/15/18 23:17:29 Letty Griffin RN ED Nurse 09/15/18 23:27:03 VITALS INFORMATION Vital [...] is allergic to Toradol. She comes to [place] from [facility] stating that her primary care doctor, Dr. Zamudio is from [place] but she will not go to that [...] room visit.. Impression and Plan Diagnosis Migraine ([id number]-NF G43.909, Discharge, Medical) Plan Condition: Improved, Stable. Disposition: Discharged: to home. Patient was given the following educational materials: Migraine Headache, Ubua-yo-Qttq. Follow up with: Juarez Corado Within 3 to 5 days, Juarez Corado Within 3 to 5 days. Counseled: Patient, Family, Regarding diagnosis, Regarding diagnostic results, Regarding treatment plan, Patient indicated understanding of instructions. DISCHARGE INFORMATION: Discharge Disposition: Home Discharge Location: PATIENT EDUCATION INFORMATION Instructions: Migraine Headache, Ychz-po-Qksn Follow-Up: With: Address: When: Juarez Corado [address] [place] [address] [facility] () Within 3 to 5 days DIAGNOSIS: Migraine Patient Understands: Yes - Patient/family/ezra iver verbalizes understanding of instructions given Comment: [facility] ED Note - Physicianon 2018 [...] is allergic to Toradol. She comes to [place] from [facility] stating that her primary care doctor, Dr. Zamudio is from [place] but she will not go to that [...] room visit.. Impression and Plan Diagnosis Migraine (STE73-VW G43.909, Discharge, Medical) Plan Condition: Improved, Stable. Disposition: Discharged: to home. Patient was given the following educational materials: Migraine Headache, Szmk-ja-Wfta. Follow up with: Juarez Corado Within 3 to 5 days, Juarez Corado Within 3 to 5 days. Counseled: Patient, Family, Regarding diagnosis, Regarding diagnostic results, Regarding treatment plan, Patient indicated understanding of instructions. [Electronically Signed on: 09/15/2018 23:31 EST] Chirag Kim MD [Verified on: 09/15/2018 23:31 EST] Chirag Kim MD [facility] ED Patient Education Noteon 09-16-2018 ED Patient Education Note Education Materials Neurology Migraine Headache A migraine headache is a very strong throbbing pain on one side or both sides of your head. Migraines can also cause other symptoms. Talk with your doctor about what things may bring on (trigger) your migraine headaches. Follow these instructions at home: Medicines ? Take eugr-zrd-bqcnojp and prescription medicines only as told by your doctor. ? Do not drive or use heavy machinery while taking prescription pain medicine. ? To prevent or treat constipation while you are taking prescription pain medicine, your doctor may recommend that you: ? Drink enough fluid to keep your pee (urine) clear or pale yellow. ? Take mznr-wcp-todvpjj or prescription medicines. ? Eat foods that [...] 04/07/2009 Document Revised: 01/16/2017 Document Reviewed: 12/15/2016 [employer] Interactive Patient Education ? 2017 [employer]. [facility] ED Patient Summaryon 019 ED Patient Summary [facility] [address] [place] [address] PATIENT DISCHARGE INSTRUCTIONS Patient Information Name: GABI COOMBS Age: 48 Years Date of : [birth year] Reason For Visit: Headache - Recurrent; HEADACHE Arrival Time: 09/15/18 23:17:00 Primary Care Physician: Juarez Corado Attending Physician: Chirag Kim MD Comment: Visit Diagnosis: Diagnoses This Visit Headache - Recurrent ([id number]) Migraine (G43.909) If you received any narcotics, [...] legal documents With: Address: When: Juarez Corado [address] [place] [address] [place], [place] [id number] Business (1) Within 3 to 5 days Medication Information: The exam and treatment you received today in the [facility] Emergency Department were for an urgent problem and are not intended as complete care. It is important for you to follow up with a doctor, nurse practitioner, or physician?s food and nutrition services assistant for ongoing care. If your symptoms [...] so we can reach you if necessary. [facility] has provided you with a complete list of medications post discharge. Please inform your security software engineer/provider of your visit and for further instruction [...] these instructions at home: Medicines ? Take jysi-vcf-txutogw and prescription medicines only as told by your doctor. ? Do not drive or use heavy machinery while taking prescription pain medicine. ? To prevent or treat constipation while you are taking prescription pain medicine, your doctor may recommend that you: ? Drink enough fluid to keep your pee (urine) clear or pale yellow. ? Take qevf-ukl-vgwilwz or prescription medicines. ? Eat foods that [...] 04/07/2009 Document Revised: 01/16/2017 Document Reviewed: 12/15/2016 [employer] Interactive Patient Education ? 2017 [employer] Viruses or Bacteria What?s got you [...] for Disease Control and Prevention March 2014 [facility] Coding Summaryon 08-23-2018 Coding Summary CODING DATE: 08/23/2018 [facility] STATUS: Home PAYOR: Medicaid HMO ADMIT [...] Kelly Tucker Date Saved: 08/23/2018 12:36 pm [facility] Coding Summary CODING DATE: 08/23/2018 [facility] STATUS: Home PAYOR: Medicaid HMO ADMIT [...] Kelly Tucker Date Saved: 08/23/2018 12:34 pm [facility] ED Clinical Summaryon 2018 ED Clinical Summary [facility] [address] [place], [place] [id number] ED Clinical Summary PERSON INFORMATION Name: GABI COOMBS Age: 48 Years Sex: FEMALE : [birth year] MRN: Acct#: Visit Reason: Headache; HEADACHE Arrival: 08/21/18 01:08:00 Discharge: 08/21/18 01:48:00 LOS: 000 00:40 Check In: 08/21/18 01:08:00 Checkout:08/21/18 01:48:00 Address: [address] [place] [address] PCP: Juarez Corado PROVIDER INFORMATION Provider Role Assigned Unassigned Tomas SAUCEDO, Kaitlin ED Nurse 08/21/18 01:21:38 Justen Crook [...] headache cephalgia. Impression and Plan Diagnosis Cephalgia ([id number] R51, Discharge, Medical) Plan Condition: Improved. Disposition: Discharged: to home. Patient was given the following educational materials: Migraine Headache, Migraine Headache. Follow up with: Juarez Corado Within 3 to 5 days. Counseled: Patient, Family. DISCHARGE INFORMATION: Discharge Disposition: Home Discharge Location: Home PATIENT EDUCATION INFORMATION Instructions: Migraine Headache Follow-Up: With: Address: When: Juarez Corado [address] [place] [id number] [facility] (1) Within 3 to 5 days DIAGNOSIS: Cephalgia Patient Understands: Yes - Patient/family/careg iver verbalizes understanding of instructions given Comment: [facility] ED Note - Physicianon 2018 ED Note - Physician Patient: GABI COOMBS Age: 48 years Sex: FEMALE : [birth year] Associated Diagnoses: Cephalgia Author: Justen Crook DO Basic Information Additional information: Chief Complaint from Nursing Triage Note : Chief Complaint 02/09/19 01:14 EST Chief Complaint headache . History [...] headache cephalgia. Impression and Plan Diagnosis Cephalgia (HBC59-DY R51, Discharge, Medical) Plan Condition: Improved. Disposition: Discharged: to home. Patient was given the following educational materials: Migraine Headache, Migraine Headache. Follow up with: Juarez Corado Within 3 to 5 days. Counseled: Patient, Family. [Electronically Signed on: 08/21/2018 01:34 EST] Tupa Justen REEVES [Verified on: 08/21/2018 01:34 EST] Justen Crook DO [facility] ED Note-Nursingon 08-21-2018 ED Note-Nursing Pt discharged home. Home care and follow-up instructions given to pt. Pt verbalized understanding. No prescriptions given to pt. VS are WNL. No distress observed. Pt ambulated xself to exit with family. [facility] ED Patient Education Noteon 08-21-2018 [...] these instructions at home: Medicines ? Take gewi-ulj-lykmevk and prescription medicines only as told by your health care provider. ? Do not drive or use heavy machinery while taking prescription pain medicine. ? To prevent or treat constipation while you are taking prescription pain medicine, your health care provider may recommend that you: ? Drink enough fluid to keep your urine clear or pale yellow. ? Take xgwx-ncl-cpanzme or prescription medicines. ? Eat foods that [...] 12/15/2016 Else[employer] Interactive Patient Education ? 2017 [employer] [facility] ED Patient Summaryon 019 ED Patient Summary [facility] [address] [place], [place] [id number] PATIENT DISCHARGE INSTRUCTIONS Patient Information Name: GABI COOMBS Age: 48 Years Date of : [birth year] Reason For Visit: Headache; HEADACHE Arrival Time: 08/21/18 01:08:00 Primary Care Physician: Juarez Corado Attending Physician: Justen Crook DO Comment: Visit Diagnosis: Diagnoses This Visit Cephalgia (R51) Headache ([id number]) If you received any narcotics, sedation, or [...] legal documents With: Address: When: Juarez Corado [address] [place] [address] Business (1) Within 3 to 5 days Medication Information: The exam and treatment you received today in the [facility] Emergency Department were for an urgent problem and are not intended as complete care. It is important for you to follow up with a doctor, nurse practitioner, or physician?s food and nutrition services assistant for ongoing care. If your symptoms [...] so we can reach you if necessary. [facility] has provided you with a complete list of medications post discharge. Please inform your security software engineer/provider of your visit and for further instruction [...] these instructions at home: Medicines ? Take pojn-jzg-vodmcob and prescription medicines only as told by your health care provider. ? Do not drive or use heavy machinery while taking prescription pain medicine. ? To prevent or treat constipation while you are taking prescription pain medicine, your health care provider may recommend that you: ? Drink enough fluid to keep your urine clear or pale yellow. ? Take ophu-ebf-qcnmega or prescription medicines. ? Eat foods that [...] 06/29/2006 Document Revised: 01/16/2017 Document Reviewed: 12/15/2016 [employer] Interactive Patient Education ? 2017 [employer] Viruses or Bacteria What?s got you [...] for Disease Control and Prevention March 2014 [facility] Coding Summaryon 07-22-2018 Coding Summary CODING DATE: 07/22/2018 [facility] STATUS: Home PAYOR: Medicaid HMO ADMIT [...] Kelly Tucker Date Saved: 07/22/2018 03:01 pm [facility] Coding Summary CODING DATE: 07/22/2018 [facility] STATUS: Home PAYOR: Medicaid HMO ADMIT [...] Kelly Tucker Date Saved: 07/22/2018 02:59 pm [facility] ED Clinical Summaryon 2018 ED Clinical Summary [facility] [address] [place] [address] ED Clinical Summary PERSON INFORMATION Name: GABI COOMBS Age: 48 Years Sex: FEMALE : [birth year] MRN: Acct#: Visit Reason: Headache - Recurrent; Headache; HEADACHE Arrival: 07/20/18 01:23:00 Discharge: 07/20/18 02:30:00 LOS: 000 01:07 Check In: 07/20/18 01:23:00 Checkout:07/20/18 02:30:00 Address: [address] [place] [id number] PCP: Juarez Corado PROVIDER INFORMATION Provider Role Assigned Unassigned Kirstin RN, Betzy ED Nurse 07/20/18 01:27:18 Nolan Zheng DO [...] PATIENT EDUCATION INFORMATION Instructions: Recurrent Migraine Headache, Ulat-hd-Rukc Follow-Up: With: Address: When: Juarez Corado [address] [place] [address] [facility] (1) Within 3 to 5 days [...] iver verbalizes understanding of instructions given Comment: [facility] ED Note - Physicianon 2018 [...] c/o bitemporal montoya, is out of her Imitrex sq, which works, but now similar montoya [...] 4, appears in good health, with reproducible motnoya bitemp; neck supple, pupils 3.0 mm, no [...] Medical/ Family/ Social History Medical history: Resolved ([id number]): Resolved. Bypass ([id number]): Resolved. Comments: - Done in 1999 Back (922.31): Resolved. Comments: - surgery in 2011. Surgical history: Gastric bypass ([id number]).. Family history: No family history items have been selected or recorded.. Social history: Social & Psychosocial Habits Tobacco 03/02/2017 Smoking tobacco use: Current Every Day Smoker Type: Cigarettes Number used per day: 2 PPD 01/30/2018 Smoking tobacco use: 5-9 cigarettes (between 1 07/20/2018 Smoking tobacco use: 10 or more cigarettes (1/ . Problem list: Active Problems (8) Anxiety Anxiety and depression Back pain Diabetes mellitus type 2 Gastric bypass Lumbar strain Migraine Smoker . Medical Decision Making Orders Launch Orders Pharmacy: N[facility]ain (Order): 10 mg, IM, Once Phenergan (Order): 25 mg, IM, Once. Impression and Plan Diagnosis Recurrent headache ([id number] R51, Discharge, Medical) Plan Condition: Improved. Disposition: Discharged: time 07/20/18 02:17:00. Prescriptions: Launch prescriptions Pharmacy: Imitrex 6 mg/0.5 mL subcutaneous solution (Prescribe): 6 mg = 0.5 mL, SubQ, Once, PRN: as needed for migraine headache, 2 EA, 4 Refill(s). Patient was given the following educational materials: Recurrent Migraine Headache, Ihxw-wf-Ckej. Follow up with: Juarez Corado Within 3 [...] on: 07/20/2018 05:48 EST] Nolan Zheng DO [facility] ED Note-Nursingon 07-20-2018 ED Note-Nursing [...] her migraines to make her feel better. [facility] ED Patient Education Noteon 07-20-2018 ED Patient Education Note Education Materials Neurology Recurrent Migraine Headache A migraine headache is very bad, throbbing pain that is usually on one side of your head. Recurrent migraines keep coming back (recurring). Talk with your doctor about what things may bring on (trigger) your migraine headaches. Follow these instructions at home: Medicines ? Take dwka-rie-uaewflj and prescription medicines only as told by [...] on (trigger) your migraine headaches. ? Take yvog-inp-wzfklin and prescription medicines only as told by [...] 04/07/2009 Document Revised: 05/22/2017 Document Reviewed: 05/22/2017 [employer] Interactive Patient Education ? 2017 [employer] [facility] ED Patient Summaryon 019 ED Patient Summary [facility] Department [address] [place], [place] [id number] PATIENT DISCHARGE INSTRUCTIONS Patient Information Name: GABI COOMBS Age: 48 Years Date of : [birth year] Reason For Visit: Headache - Recurrent; Headache; HEADACHE Arrival Time: 07/20/18 01:23:00 Primary Care Physician: Juarez Corado Attending Physician: Nolan Zheng DO Comment: Visit Diagnosis: Diagnoses This Visit Headache ([id number]) Headache - Recurrent ([id number]) Recurrent headache (R51) If you received any [...] legal documents With: Address: When: Juarez Corado [address] [place] [address] Business (1) Within 3 to 5 days Comments: home continue with your neurologist and Mr Corado take the Imitrex as directed for headache; since you ran out, we have refilled because you indicated that it worked well for you you are welcomed to return anytime. mary zheng, er physician, leonel sullivan [facility] Medication Information: The exam and treatment you received today in the [facility] Emergency Department were for an urgent problem and are not intended as complete care. It is important for you to follow up with a doctor, nurse practitioner, or physician?s food and nutrition services assistant for ongoing care. If your symptoms [...] so we can reach you if necessary. [facility] has provided you with a complete list of medications post discharge. Please inform your security software engineer/provider of your visit and for further instruction on these medications. Any specific questions regarding your chronic medications and dosages should be discussed with your primary care physician(s) and/or pharmacist. Medications That Were Updated - Follow Below Instructions [facility] [facility], [address], [place] [id number], [phone] Updated: SUMAtriptan (Imitrex 6 mg/0.5 mL subcutaneous [...] these instructions at home: Medicines ? Take hmut-uwh-clieweq and prescription medicines only as told by [...] on (trigger) your migraine headaches. ? Take xmnq-aal-lfgcxtm and prescription medicines only as told by [...] 04/07/2009 Document Revised: 05/22/2017 Document Reviewed: 05/22/2017 [employer] Interactive Patient Education ? 2017 [employer] Viruses or Bacteria What?s got you [...] for Disease Control and Prevention March 2014 [facility] Coding Summaryon 04-09-2018 Coding Summary CODING DATE: 04/09/2018 [facility] STATUS: Home PAYOR: Medicaid HMO ADMIT [...] Ryan Mchugh' Date Saved: 04/09/2018 11:21 am [facility] Coding Summary CODING DATE: 04/09/2018 [facility] STATUS: Home PAYOR: Medicaid HMO ADMIT [...] Mchugh' Revised Date Saved: 03/31/2018 12:28 pm [facility] Coding Queryon 04-02-2018 Coding Query Can you please finalize your chart when complete? This is the second request sent to you for this account. Thanks. [Electronically Signed on: 04/05/2018 07:58 EDT] Nolan Zheng DO [Verified on: 04/05/2018 07:58 EDT] Nolan Zheng DO [Transcribed on: 04/02/2018 09:47 EDT] [facility] Coding Queryon 03-31-2018 Coding Query Can you please finalize your chart when complete? Thanks. [Electronically Signed on: 04/09/2018 00:04 EDT] Nolan Zheng DO [Verified on: 04/09/2018 00:04 EDT] Nolan Zheng DO [Transcribed on: 03/31/2018 12:28 EDT] [facility] Coding Query Can you please finalize your chart when finished? Thanks. [Electronically Signed on: 04/01/2018 10:59 EDT] TIFFANIE CASTRO [Verified on: 04/01/2018 10:59 EDT] TIFFANIE CASTRO [Transcribed on: 03/31/2018 12:27 EDT] [facility] ED Clinical Summaryon 2017 ED Clinical Summary [facility] Department [address] [place] [address] ED Clinical Summary PERSON INFORMATION Name: GABI COOMBS Age: 47 Years Sex: FEMALE : [birth year] MRN: Acct#: Visit Reason: Headache - Recurrent; MONTOYA - Headache; HEADACHE Arrival: 03/05/18 20:29:00 Discharge: 03/05/18 21:25:00 LOS: 000 00:56 Check In: 03/05/18 20:29:00 Checkout:03/05/18 21:25:00 Address: [address] [facility] [address] PCP: Juarez Corado PROVIDER INFORMATION Provider Role [...] Adult Follow-Up: With: Address: When: Juarez Corado [address] [place] [id number] Business (1) Within 3 to 5 days Comments: home call Dr Corado on Thursday for recheck apt ask Dr Corado about the injectable form of Imitrex--it works very well You are welcomed to return anytime. Mary ZHENG< ER PHYSICIAN< Leonel Sullivan Rani DIAGNOSIS: Recurrent occipital headache Patient Understands: Yes - Patient/family/careg iver verbalizes understanding of instructions given Comment: [facility] ED Note - Physicianon 2017 [...] Medical/ Family/ Social History Medical history: Resolved ([id number]): Resolved. Bypass ([id number]): Resolved. Comments: - Done in 1999 Back (922.31): Resolved. Comments: - surgery in 2011. Surgical history: Gastric bypass ([id number]).. Family history: No family history items have [...] Impression and Plan Diagnosis Recurrent occipital headache ([id number] R51, Discharge, Medical) Plan Condition: Improved. Disposition: [...] on: 04/05/2018 07:58 EDT] Nolan Zheng DO [facility] ED Note - Physician Patient: [...] [Verified on: 04/01/2018 10:59 EDT] TIFFANIE CASTRO [facility] ED Patient Education Noteon 03-05-2018 [...] HOME CARE INSTRUCTIONS Managing Pain ? Take jafp-cyu-gvznbky and prescription medicines only as told by [...] 06/29/2006 Document Revised: 03/19/2016 Document Reviewed: 10/22/2015 [employer] Interactive Patient Education ? 2017 [employer] [facility] ED Patient Summaryon 018 ED Patient Summary [facility] Department [address] [place] [address] PATIENT DISCHARGE INSTRUCTIONS Patient Information Name: GABI COOMBS Age: 47 Years Date of : [birth year] Reason For Visit: Headache - Recurrent; MONTOYA - Headache; HEADACHE Arrival Time: 03/05/18 20:29:00 Primary Care Physician: Juarez Corado Attending Physician: Nolan Zheng DO Comment: Visit Diagnosis: Diagnoses This Visit MONTOYA - Headache ([id number]) Headache - Recurrent ([id number]) Recurrent occipital headache (R51) If you received [...] legal documents With: Address: When: Juarez Corado [address] [place] [phone] Business (1) Within 3 to 5 days Comments: home call Dr Corado on Thursday for recheck apt ask Dr Corado about the injectable form of Imitrex--it works very well You are welcomed to return anytime. Mary ZHENG< ER PHYSICIAN< H Napoleon Saravia Medication Information: The exam and treatment you received today in the [facility] Emergency Department were for an urgent problem and are not intended as complete care. It is important for you to follow up with a doctor, nurse practitioner, or physician?s food and nutrition services assistant for ongoing care. If your symptoms [...] so we can reach you if necessary. [facility] has provided you with a complete list of medications post discharge. Please inform your security software engineer/provider of your visit and for further instruction [...] HOME CARE INSTRUCTIONS Managing Pain ? Take vxjd-wyj-mausrkr and prescription medicines only as told by [...] 06/29/2006 Document Revised: 03/19/2016 Document Reviewed: 10/22/2015 [employer] Interactive Patient Education ? 2017 [employer] Viruses or Bacteria What?s got you [...] for Disease Control and Prevention March 2014 [facility] Encounters Encounter Date Encounter Type Care Provider Facility Start: 12-17-[address] MYLES MARIE . Facility: Start: 01-31-2019 End: 02-01-2019 Patient encounter procedure [facility] Start: 10-13-2018 End: 10-16-2018 Patient encounter procedure [facility] Start: 10-12-2018 End: 10-15-2018 Patient encounter procedure [facility] Start: 10-11-2018 End: 10-14-2018 Patient encounter procedure [facility] Start: 09-27-2018 End: 09-28-2018 Patient encounter procedure [facility] Procedures Date Procedure Procedure Detail Performing Clinician Start: 01-31-2019 25 hydroxy includes fractions if performed KANCHAN NARVAEZ Start: 01-31-2019 Assay of free thyroxine KANCHAN NARVAEZ Start: 01-31-2019 Assay of thyroglobulin KANCHAN NARVAEZ Start: 01-31-2019 Assay of thyroid sti mulating hormone tsh KANCHAN NARVAEZ Start: 01-31-2019 Thyroglobulin antibody KANCHAN NARVAEZ Start: 10-13-2018 Thyroid carcinoma me tastases img whole body KANCHAN NARVAEZ Start: 09-27-2018 25 hydroxy includes fractions if performed KANCHAN NARVAEZ Payers Date Payer Category Payer Unknown [id number] 2.16.8 [id number] 1970 Unknown [id number] 2.16.8 [id number] 1968 Unknown [id number] 2.16.8 [id number] 1968 Unknown [id number] 2.16.8 [id number] 1968 Unknown [id number] 2.16.8 [id number] 1968 Unknown [id number] 2.16.8 [id number] 1968 Unknown [id number] 2.16.8 [id number] 1968 Unknown [id number] 2.16.84 [id number] 1959 Unknown [id number] Summary Purpose Family History No Family History Records FoundNo Family History Records FoundNo Family History Records FoundNo Family History Records Found Advance Directives No Advanced Directives Records FoundNo Advanced Directives Records FoundNo Advanced Directives Records FoundNo Advanced Directives Records Found Additional Source Comments INFORMATION SOURCE (unrecogn ized section and content) DATE CREATED AUTHOR 10/17/2018 [facility] DATE CREATED AUTHOR AUTHOR'S ORGANIZ ATION 02/01/2019 [facility] DATE CREATED AUTHOR AUTHOR'S ORGANIZ ATION 02/25/2019 [facility] DATE CREATED AUTHOR AUTHOR'S ORGANIZ ATION 12/19/2022 [facility] FOR RECORDS PERTAINING TO PATIENTS WHO [...] BE BASED ON THE PRIMARY CLINICAL RECORDS. [facility] [employer] [facility]. provides no warranty or guarantee of the accuracy or completeness of information in this document.
== END 2023-12-08 21:45 | disposition home or self-care (01) ==
LOC: LAB 21:44
PROVIDERS: PCP Nurse Practitioner; Visit Provider Nurse Practitioner
DX: Z79.899 Other long term (current) drug therapy (principal)
CPT/HCPCS: 36415; 80307

== ENCOUNTER 2024-01-12 14:35 | Outpatient (OUT) | payer OTHER, SELFPAY ==
--- NOTE | 2024-01-12 14:56 | US_ITS ---
The [address] [address] Patient Name: GABI COOMBS MRN: [id number] date: 1970 Sex: F Assigned Patient Location: LAB Current Patient Location: Accession/Order Number: [id number] Exam Date: 01/12/2024 15:00 Report Date: 01/14/2024 05:06 At the request of: BALDEMAR AARON Procedure: US venous doppler LE LT EXAMINATION: US venous doppler LE LT HISTORY: Left Calf Pain M79.662 COMPARISON: No relevant comparison available. FINDINGS: REGION: Left lower extremity THROMBI: None. COMPRESSIBILITY: Normal compressibility. FLOW: Normal waveform and antegrade flow between 5 and 20 cm/s. OTHER: None. US/US venous doppler LE LT IMPRESSION: 1. No deep vein thrombus within the left lower extremity. Electronically authenticated by: DELTA PATTERSON Date: 01/14/2024 05:06
[2024-01-12 15:13] LABS: D Dimer 0.58 mg/L FEU (<=0.59)
[2024-01-12 15:36] LABS: TSH W/ REFLEX FT4 1.553 uIU/mL (0.358-3.740)
== END 2024-01-12 14:36 | disposition home or self-care (01) ==
LOC: LAB 14:37
PROVIDERS: PCP Nurse Practitioner; Visit Provider Nurse Practitioner
DX: M79.662 Pain in left lower leg (principal); R60.9 Edema, unspecified; E03.9 Hypothyroidism, unspecified
CPT/HCPCS: 36415; 83880; 84443; 85378; 93971

== ENCOUNTER 2024-04-14 10:18 | Outpatient (OUT) | payer OTHER, SELFPAY ==
--- OUTSIDE RECORDS SUMMARY | 2024-04-14 10:41 | XMS_ITS | CCD ---
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 Role Phone MOOSA, KANCHAN F Referring Unavailable ZAMUDIO, CATHY [...] ., DR MYLES Roy Admitting Unavaila ble SHANONCLAUDIO Attending Unavailable LASHAWN, CATHY A Referring Unavailable LASHAWN, CATHY A Primary Care Unavailable CLAUDIO CLAUDIO Referring Unavailable LASHAWN, CATHY A Primary Care Unavailable PENNY, TYLER C Attending Unavailable GALEN, BALDEMAR Referring Unavailable LASHAWN, CATHY A Primary Care Unavailable FRANCIS, TYLER C Referring Unavailable GALEN, BALDEMAR Primary Care Unavailable FRANCIS, TYLER C Referring Unavailable GALEN, BALDEMAR Primary Care Unavailable FRANCIS, TYLER C Referring Unavailable GALEN, BALDEMAR Primary Care Unavailable Allergies Allergy Classification Reported Allergen(s) Allergy Type Date of Onset Reaction(s) Facility (1 source) Ibuprofen Drug Allergy [facility] Repository (3 sources) Adhesive agent; Translations: [ADHESIVE] Propensity to adverse reactions to drug (disorder) 4 [facility] Repository (3 sources) Amoxicillin; Translations: [AMOXICILLIN] Drug Allergy 6 [facility] Repository (3 sources) Ciprofloxacin; Translations: [CIPROFLOXACIN] Drug Allergy 4 [facility] Repository (3 sources) Ibuprofen; Translations: [IBUPROFEN] Drug Allergy 6 [facility] Repository (3 sources) Ketorolac; Translations: [KETOROLAC] Drug Allergy 6 [facility] Repository (3 sources) BLEACH (SODIUM HYPOCHLORITE); Translations: [BLEACH (SODIUM HYPOCHLORITE)] Propensity to adverse reactions to drug (disorder) 6 [facility] Repository Problems Problem Classification Problem Date Documented Da te Episodic/Chronic Cancer of thyroid (3 sources) Malignant neoplasm of thyroid gland; Translations: [Malignant neoplasm of thyroid gland] Onset: 10-11-2018 Chronic Headache; including migraine (1 source) Migraine, unspecified, not intractable, without status migrainosus; Translations: [Migraine, unspecified, not intractable, without status migrainosus] Onset: 02-03-2024 Chronic Headache; including migraine (1 source) Cervicogenic headache; Translations: [Cervicogenic headache] Onset: 02-03-2024 Episodic Headache; including migraine (1 source) Headache; including migraine; Translations: [Headache, unspecified] Onset: 02-03-2024 Skin and subcutaneous tissue infections (2 sources) Furuncle of groin; Translations: [Furuncle of groin] Onset: 12-14-2023 Episodic Spondylosis; intervertebral disc disorders; other back problems (2 sources) Cervicalgia; Translations: [Occipital neuralgia] Onset: 02-03-2024 Episodic Thyroid disorders (2 sources) Nontoxic multinodular goiter; Translations: [Nontoxic multinodular goiter] Onset: 10-12-2018 Chronic Unclassified (2 sources) 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 Multisequence multiplanar imaging of the brain was obtained. The diffusion-weighted images and corresponding ADC map show no focus of diffusion restriction or acute intracranial ischemia. There is no susceptibility appreciated on gradient echo sequences to suggest hemorrhage or hemosiderin deposition. Contrast-enhanced imaging acquired in the axilla, sagittal, coronal planes show no focus of pathologic intracranial enhancement. The paranasal sinuses and mastoid air cells are clear. Flow voids are normal in caliber and contour. Basilar cisterns are patent. Few foci increased signal noted within the white matter, nonspecific. IMPRESSION: Few small nonspecific foci increased signal within the white matter. Although most commonly related to mild chronic small vessel ischemia, other entities to include vasculitis, chronic migraines, and demyelinating processes could produce this appearance. Finalized by Gus Reina MD on 03/03/2024 9:56 AM Normal [facility] CRP [Mass/Vol]on 02-03-2024 C REACTIVE PROTEIN 0.8 mg/dL High 0.000-0.744 [facility] Comment on above: Performed By: #### 1 988-5, 84242-0 #### [facility] ([id number]) [address], [address] [place] [address] ESR Photometric method (Bld) [Velocity]on 02-03-2024 ESR, ERYTHROCYTE SEDIMENTATION RATE 4 mm/h Normal 0-30 [facility] Comment on above: Performed By: #### 1 988-5, 43238-7 #### [facility] ([id number]) [address], [address] [place] [address] SUPERFICIAL WOUND CULTUREon 12-14-2023 Bacteria identified Aer cx Nom (Wound) GRAM STAIN 10 to 24 WHITE BLOOD CELLS/LPF 0 SQUAMOUS EPITHELIAL CELLS/LPF MODERATE GRAM NEGATIVE RODS RARE GRAM POSITIVE COCCI CULTURE RESULTS RARE ESCHERICHIA COLI ALONG WITH RARE NORMAL SKIN TRACE [ S = SUSCEPTIBLE R = RESISTANT I = INTERMEDIATE S-DO = Susceptible-dose dependent NS = Non-suscceptible NO = No Interpretation ] Organism: ESCHERICHIA COLI Antibiotic Interpretation NORMA Status AMPICILLIN R >=32 F AMP/SULBACTAM I 16/8 F CEFAZOLIN UNK 8 F CLSI interpretive criteria for nonurinary isolates are as follows: <=2 Susceptible, 4 Intermediate, Resistant >=8. Contact Microbiology laboratory if further susceptibility testing for Cefazolin is required. CEFTRIAXONE S <=1 F CIPROFLOXACIN S <=0.25 F GENTAMICIN S <=1 F LEVOFLOXACIN S <=0.12 F PIPERACIL/TAZOBACTAM S 8 F TOBRAMYCIN S <=1 F Susceptible [facility] Comment on above: Performed By: #### 6 32-0 #### [facility] ([id number]) [address], [address] [place] [address] Coding Summaryon 02-24-2019 Coding Summary CODING DATE: 02/24/2019 [facility] STATUS: Home PAYOR: Medicaid HMO ADMIT [...] terminology. Coded By: Ryan Mchugh' Date Saved: 02/24/2019 03:[address] [facility] Coding Summary CODING DATE: 02/24/2019 [facility] STATUS: Home PAYOR: Medicaid HMO ADMIT [...] Coded By: Ryan Mchugh' Revised Date Saved: 02/24/2019 03:[address] [facility] Thyroglobulinon 02-01-2019 Thyroglobulin <0.2 Normal 0.0-63.4 [facility] Comment on above: Result Comment: Thyr oglobulin (Tg) is measured by the Siemens Immulite 2000 method, which has a lower limit of quantification of 0.2 ng/mL. Tg results less than 0.2 ng/mL are consistent with the absence of thyroglobulin-producing thyroid tissue. Results obtained with any different assay methods or kits cannot be used interchangeably. Performed By: #### F T4, TSH #### [facility] [address] [place] [address] Installation Manager: Lincoln Ding DO #### VD25, THYGLA, THYGL #### [address] [address] Installation Manager: Ron Adorno MD Thyroglobulin Abon 9 Thyroglobulin Ab Qn [IU]/mL Normal 0.0-40.0 [facility] Comment on above: Performed By: #### F T4, TSH #### [facility] [address] [place] [address] Installation Manager: Lincoln Ding DO #### VD25, THYGLA, THYGL #### [address] [address] Installation Manager: Ron Adorno MD Vitamin D 25 OHon 02-01-2019 Vitamin D 25 [place] 29.1 ng/mL Low 30.0-100.0 [facility] Comment on above: Result Comment: Reference Range: Vitamin D status Range Deficiency <20 ng/mL Mild Deficiency 20-30 ng/mL Sufficiency 30-100 ng/mL Toxicity >100 ng/mL Performed By: #### F T4, TSH #### [facility] [address] [place] [address] Installation Manager: Lincoln Ding DO #### VD25, THYGLA, THYGL #### [address] [address] Installation Manager: Ron Adorno MD Thyroid Stim. Horm.on 2018 TSH Qn m[IU]/L Low 0.30-5.00 [facility] Comment on above: Performed By: #### F T4, TSH #### [facility] [address] [facility] [place] [address] Installation Manager: Lincoln Ding DO #### VD25, THYGLA, THYGL #### [id number] [place] [address] Installation Manager: Ron Adorno MD Thyroxine, Freeon 01-31-2019 Thyroxine, Free 1.70 ng/dL Normal 0.93-1.70 [facility] Comment on above: Performed By: #### F T4, TSH #### [facility] [address] [place] [address] Installation Manager: Lincoln Ding DO #### VD25, THYGLA, THYGL #### [address] [id number] Installation Manager: Ron Adorno MD Coding Queryon 01-05-2019 Coding Query Can you please finalize your chart when your documentation is complete? Thanks. [Electronically Signed on: 02/24/2019 07:49 EDT] Nolan Zheng DO [Verified on: 02/24/2019 07:49 EDT] Nolan Zheng DO [Transcribed on: 01/05/2019 15:14 EDT] RR Normal [facility] ED Clinical Summaryon 2018 ED Clinical Summary [facility] - Emergency Department [address] [place] [address] ED Clinical Summary PERSON INFORMATION Name: GABI COOMBS Age: 48 Years Sex: FEMALE : [birth year] MRN: Acct#: Visit Reason: Eye pain; Eye problem; C/O BURN EYE, PAIN RIGHT EYE Arrival: 01/02/19 21:08:00 Discharge: 01/02/19 22:15:00 LOS: 000 01:07 Check In: 01/02/19 21:08:00 Checkout:01/02/19 22:15:00 Address: [address] [place] [address] PCP: Juarez Corado PROVIDER INFORMATION Provider Role [...] PATIENT EDUCATION INFORMATION Instructions: Eye Foreign Body, Xtlk-mc-Tzje Follow-Up: With: Address: When: MAGNO GOOD [address] [place], [place] [id number] [facility] ([employer] In 1 day 01/03/19 Comments: home use ointment in the eye every 4-6 hours the irritation will slowly disappear call Dr Good's office--or eye physician of your choice--in the am 9 am for a recheck apt you are welcomed to return anytime mary zheng, er physician, leonel saravia DIAGNOSIS: Eye foreign body Patient Understands: Yes - Patient/family/careg iver verbalizes understanding of instructions given Comment: [facility] ED Patient Education Noteon 01-03-2019 ED Patient [...] Follow these instructions at home: ? Take vrzj-xww-uzicnoz and prescription medicines only as told by [...] 12/17/2010 Document Revised: 07/15/2017 Document Reviewed: 07/15/2017 Elsevier Interactive Patient Education ? 2019 Elsevier Inc. Normal [facility] ED Patient Summaryon 019 ED Patient Summary [facility] - Emergency Department [address] [place] [address] PATIENT DISCHARGE INSTRUCTIONS Patient Information Name: GABI COOMBS Age: 48 Years Date of : [birth year] Reason For Visit: Eye pain; Eye problem; C/O BURN EYE, PAIN RIGHT EYE Arrival Time: 01/02/19 21:08:00 Primary Care Physician: Juarez Corado Attending Physician: Nolan Zheng DO Comment: Visit Diagnosis: Diagnoses This Visit Eye foreign body (T15.90XA) Eye pain ([id number]) Eye problem ([id number]) Prescription Information: If you have been given a prescription for narcotics, seek immediate medical attention if you have any difficulty breathing or any sudden status changes such as confusion and sleepiness. If you or anyone you know is experiencing suicidal thoughts, mental health, alcohol and/or drug addiction problems; contact the [facility] [place] [facility] 02/02 Crisis Hotline -Text 4HVMX oa 17[address]. If you received any narcotics, sedation, or [...] documents With: Address: When: MAGNO GOOD [address] [place] [address] [facility] () In 1 day 01/03/19 Comments: home use ointment in the eye every 4-6 hours the irritation will slowly disappear call Dr Good's office--or eye physician of your choice--in the am 9 am for a recheck apt you are welcomed to return anytime joann regan physician, leonel saravia Medication Information: The exam and treatment you received today in the [facility] Emergency Department were for an urgent problem and are not intended as complete care. It is important for you to follow up with a doctor, nurse practitioner, or physician?s medical claims assistant for ongoing care. If your symptoms [...] so we can reach you if necessary. [facility] Emergency Department has provided you with a complete list of medications post discharge. Please inform your assistant professor of forestry/provider of your visit and for further instruction [...] Follow these instructions at home: ? Take ywzr-qll-lbxdrfg and prescription medicines only as told by [...] 12/17/2010 Document Revised: 07/15/2017 Document Reviewed: 07/15/2017 Navitell Interactive Patient Education ? 2019 [employer] Inc. Viruses or Bacteria What?s got you [...] for Disease Control and Prevention March 2014 [facility] Medication Managementon 12-12 Medication Management [id number] 1.00OTGTIFF [facility] ED Note - Physicianon 2018 ED Note [...] Impression and Plan Diagnosis Eye foreign body (GEI90-OF T15.90XA, Discharge, Medical) right, corneal Plan Condition: Improved. Disposition: Discharged: time 01/02/19 21:53:00. Prescriptions: Launch prescriptions Pharmacy: erythromycin ophthalmic (Order): 1 [place], Right eye, QID. Patient was given the following educational materials: Eye Foreign Body, Buor-cv-Eqad. Follow up with: ; MAGNO GOOD In 1 day 01/03/19 home use ointment in the eye every 4-6 hours the irritation will slowly disappear call Dr Good's office--or eye physician of your choice--in the am 9 am for a recheck apt you are welcomed to return anytime mary zheng, physician, leonel saravia. Counseled: Patient, Friend, Regarding diagnosis, Regarding diagnostic results, Regarding treatment plan, Regarding prescription, Patient indicated understanding of instructions. [Electronically Signed on: 02/24/2019 07:48 EDT] Nolan Zheng DO [Verified on: 02/24/2019 07:48 EDT] Nolan Zheng DO [facility] Progress Note - Nurseon 06-2 TSH Qn Patient arrives to ED room [...] cart. [Electronically Signed on: 01/02/2019 21:48 EDT] Lincoln Cher SAUCEDO [Verified on: 01/02/2019 21:48 EDT] Cher Stark RN [facility] NM THYROID METASTASES SCAN Rian VALDESon 10-13-2018 NM THYROID METASTASES SCAN WHOLE BODY [...] Jina Izquierdo MD 10/13/18 Final result Normal [facility] Coding Summaryon 09-28-2018 Coding Summary CODING DATE: 09/28/2018 [facility] STATUS: Home PAYOR: Medicaid HMO ADMIT [...] Kelly Tucker Date Saved: 09/28/2018 10:[address] [facility] Coding Summary CODING DATE: 09/28/2018 [facility] STATUS: Home PAYOR: Medicaid HMO ADMIT [...] Tucker Date Saved: 09/28/2018 10:00 am Normal [facility] Vitamin D 25 OHon 09-28-2018 Vitamin D 25 [place] 19.6 ng/mL Low 30.0-100.0 [facility] Comment on above: Result Comment: Reference Range: Vitamin D status Range Deficiency <20 ng/mL Mild Deficiency 20-30 ng/mL Sufficiency 30-100 ng/mL Toxicity >100 ng/mL Performed By: #### V D25 #### [facility] [employer] [address] [place] [address] Installation Manager: Ron Adorno MD ED Clinical Summaryon 2018 ED Clinical Summary [facility] - Emergency Department [address] [place] [address] ED Clinical Summary PERSON INFORMATION Name: GABI COOMBS Age: 48 Years Sex: FEMALE : [birth year] MRN: Acct#: Visit Reason: Headache - Recurrent; HEADACHE Arrival: 09/26/18 00:40:00 Discharge: 09/26/18 02:25:00 LOS: 000 01:45 Check In: 09/26/18 00:40:00 Checkout:09/26/18 02:25:00 Address: [address] [place] [address] PCP: Juarez Corado PROVIDER INFORMATION Provider Role [...] Instructions: Recurrent Migraine Headache Follow-Up: With: Address: Jason: Juarez Corado [facility] [place], [place] [id number] Business (1) Within 3 to 5 days Comments: home call Dr Corado for a recheck apt you are welcomed to return anytime T H STEFANYLEY< ER PHYSICIAN< H Napoleon [facility] DIAGNOSIS: Recurrent headache Patient Understands: Yes - Patient/family/careg iver verbalizes understanding of instructions given Comment: [facility] ED Note - Physicianon 2018 ED Note [...] Medical/ Family/ Social History Medical history: Resolved ([id number]): Resolved. Bypass ([id number]): Resolved. Comments: - Done in 1999 Back (922.31): Resolved. Comments: - surgery in 2011. Surgical history: Gastric bypass ([id number]).. Family history: No family history items have [...] better. Impression and Plan Diagnosis Recurrent headache ([id number]-[id number] R51, Discharge, Medical) Plan Condition: Improved. Disposition: Discharged: time 09/26/18 01:37:00. Patient was given the following educational materials: Recurrent Migraine Headache. Follow up with: Juarez Corado Within 3 to [address] Corado for a recheck apt you are welcomed to return anytime Mary ZHENG< ER PHYSICIAN< Leonel Saravia. Counseled: Patient, Regarding diagnosis, Regarding diagnostic results, Regarding treatment plan, Regarding prescription, Patient indicated understanding of instructions. [Electronically Signed on: 09/27/2018 07:08 EDT] Nolan Zheng DO [Verified on: 09/27/2018 07:08 EDT] Nolan Zheng DO Normal [facility] ED Patient Education Noteon 09-26-2018 ED Patient [...] these instructions at home: Medicines ? Take vbdy-skl-qkblatw and prescription medicines only as told by [...] 03/24/2002 Document Revised: 04/10/2017 Document Reviewed: 04/10/2017 Navitell Interactive Patient Education ? 2018 [employer]ell Inc. Normal [facility] ED Patient Summaryon 019 ED Patient Summary [facility] - Emergency Department [address] [place] [address] PATIENT DISCHARGE INSTRUCTIONS Patient Information Name: GABI COOMBS Age: 48 Years Date of : [birth year] Reason For Visit: Headache - Recurrent; HEADACHE Arrival Time: 09/26/18 00:40:00 Primary Care Physician: Juarez Corado Attending Physician: Nolan Zheng DO Comment: Visit Diagnosis: Diagnoses This Visit Headache - Recurrent ([id number]) Recurrent headache (R51) If you received any [...] legal documents With: Address: When: Juarez Corado [address] [place] [address] Business (1) Within 3 to 5 days Comments: home call Dr Corado for a recheck apt you are welcomed to return anytime T H GHAZALA< ER PHYSICIAN< H B [facility] Medication Information: The exam and treatment you received today in the [facility] Emergency Department were for an urgent problem and are not intended as complete care. It is important for you to follow up with a doctor, nurse practitioner, or physician?s medical claims assistant for ongoing care. If your symptoms [...] so we can reach you if necessary. [facility] Emergency Department has provided you with a complete list of medications post discharge. Please inform your assistant professor of forestry/provider of your visit and for further instruction [...] these instructions at home: Medicines ? Take zlat-htv-bpowgbk and prescription medicines only as told by [...] 03/24/2002 Document Revised: 04/10/2017 Document Reviewed: 04/10/2017 Navitell Interactive Patient Education ? 2018 [employer] Inc. Viruses or Bacteria What?s got you [...] for Disease Control and Prevention March 2014 [facility] Coding Summaryon 09-16-2018 Coding Summary CODING DATE: 09/16/2018 [facility] STATUS: PAYOR: Medicaid HMO ADMIT DX: [...] Oanh Mchugh Date Saved: 09/16/2018 01:[address] [facility] Coding Summary CODING DATE: 09/16/2018 [facility] STATUS: Home PAYOR: Medicaid HMO ADMIT [...] Oanh Mchugh Date Saved: 09/16/2018 01:[address] [facility] ED Clinical Summaryon 2018 ED Clinical Summary [facility] - Emergency Department [address] [place] [address] ED Clinical Summary PERSON INFORMATION Name: GABI COOMBS Age: 48 Years Sex: FEMALE : [birth year] MRN: Acct#: Visit Reason: Headache - Recurrent; HEADACHE Arrival: 09/15/18 23:17:00 Discharge: 09/15/18 23:42:00 LOS: 000 00:25 Check In: 09/15/18 23:17:00 Checkout:09/15/18 23:42:00 Address: [address] [place] [address] PCP: Juarez Corado PROVIDER INFORMATION Provider Role [...] is allergic to Toradol. She comes to [place] from [facility] stating that her primary care doctor, Dr. Zamudio is from [place] but she will not go to that [...] room visit.. Impression and Plan Diagnosis Migraine (RFF84-TZ G43.909, Discharge, Medical) Plan Condition: Improved, Stable. Disposition: Discharged: to home. Patient was given the following educational materials: Migraine Headache, Nrwd-td-Djmc. Follow up with: Juarez Corado Within 3 to 5 days, Juarez Corado Within 3 to 5 days. Counseled: Patient, Family, Regarding diagnosis, Regarding diagnostic results, Regarding treatment plan, Patient indicated understanding of instructions. DISCHARGE INFORMATION: Discharge Disposition: Home Discharge Location: PATIENT EDUCATION INFORMATION Instructions: Migraine Headache, Lnnn-ir-Vdpn Follow-Up: With: Address: When: Juarez Corado [address] [place] [address] [facility] (1) Within 3 to 5 days DIAGNOSIS: Migraine Patient Understands: Yes - Patient/family/careg iver verbalizes understanding of instructions given Comment: [facility] ED Note - Physicianon 2018 ED Note [...] is allergic to Toradol. She comes to [place] from [facility] stating that her primary care doctor, Dr. Zamudio is from [place] but she will not go to that [...] room visit.. Impression and Plan Diagnosis Migraine ([id number]-YH G43.909, Discharge, Medical) Plan Condition: Improved, Stable. Disposition: Discharged: to home. Patient was given the following educational materials: Migraine Headache, Clwe-lp-Jnga. Follow up with: Juarez Corado Within 3 to 5 days, Juarez Corado Within 3 to 5 days. Counseled: Patient, Family, Regarding diagnosis, Regarding diagnostic results, Regarding treatment plan, Patient indicated understanding of instructions. [Electronically Signed on: 09/15/2018 23:31 EST] Chirag Kim MD [Verified on: 09/15/2018 23:31 EST] Chirag Kim MD [facility] ED Patient Education Noteon 09-16-2018 ED Patient Education Note Education Materials Neurology Migraine Headache A migraine headache is a very strong throbbing pain on one side or both sides of your head. Migraines can also cause other symptoms. Talk with your doctor about what things may bring on (trigger) your migraine headaches. Follow these instructions at home: Medicines ? Take wuoq-llu-voglarq and prescription medicines only as told by your doctor. ? Do not drive or use heavy machinery while taking prescription pain medicine. ? To prevent or treat constipation while you are taking prescription pain medicine, your doctor may recommend that you: ? Drink enough fluid to keep your pee (urine) clear or pale yellow. ? Take whnk-rdp-eflhczz or prescription medicines. ? Eat foods that [...] 04/07/2009 Document Revised: 01/16/2017 Document Reviewed: 12/15/2016 Elsevier Interactive Patient Education ? 2017 Navitell Inc. Normal [facility] ED Patient Summaryon 019 ED Patient Summary [facility] - Emergency Department [address] [place], [place] [id number] PATIENT DISCHARGE INSTRUCTIONS Patient Information Name: GABI COOMBS Age: 48 Years Date of : [birth year] Reason For Visit: Headache - Recurrent; HEADACHE Arrival Time: 09/15/18 23:17:00 Primary Care Physician: Juarez Corado Attending Physician: Chirag Kim MD Comment: Visit Diagnosis: Diagnoses This Visit Headache - Recurrent ([id number]) Migraine (G43.909) If you received any narcotics, [...] any legal documents With: Address: When: [place] [address] Business (1) Within 3 to 5 days Medication Information: The exam and treatment you received today in the [facility] Emergency Department were for an urgent problem and are not intended as complete care. It is important for you to follow up with a doctor, nurse practitioner, or physician?s medical claims assistant for ongoing care. If your symptoms [...] so we can reach you if necessary. [facility] Emergency Department has provided you with a complete list of medications post discharge. Please inform your assistant professor of forestry/provider of your visit and for further instruction [...] these instructions at home: Medicines ? Take huyz-mtl-flbejox and prescription medicines only as told by your doctor. ? Do not drive or use heavy machinery while taking prescription pain medicine. ? To prevent or treat constipation while you are taking prescription pain medicine, your doctor may recommend that you: ? Drink enough fluid to keep your pee (urine) clear or pale yellow. ? Take wvos-uyd-mehwleq or prescription medicines. ? Eat foods that [...] 04/07/2009 Document Revised: 01/16/2017 Document Reviewed: 12/15/2016 [employer] Interactive Patient Education ? 2017 [employer] Viruses or Bacteria What?s got you [...] for Disease Control and Prevention March 2014 [facility] Coding Summaryon 08-23-2018 Coding Summary CODING DATE: 08/23/2018 [facility] STATUS: Home PAYOR: Medicaid HMO ADMIT [...] Kelly Tucker Date Saved: 08/23/2018 12:[address] [facility] Coding Summary CODING DATE: 08/23/2018 [facility] STATUS: Home PAYOR: Medicaid HMO ADMIT [...] Kelly Tucker Date Saved: 08/23/2018 12:[address] [facility] ED Clinical Summaryon 2018 ED Clinical Summary [facility] - Emergency Department [address] [place] [address] ED Clinical Summary PERSON INFORMATION Name: GABI COOMBS Age: 48 Years Sex: FEMALE : [birth year] MRN: Acct#: Visit Reason: Headache; HEADACHE Arrival: 08/21/18 01:08:00 Discharge: 08/21/18 01:48:00 LOS: 000 00:40 Check In: 08/21/18 01:08:00 Checkout:08/21/18 01:48:00 Address: [address] [place] [address] PCP: Juarez Corado PROVIDER INFORMATION Provider Role Assigned Unassigned Tomas RN, Kaitlin ED Nurse 08/21/18 01:21:38 Justen Crook [...] headache cephalgia. Impression and Plan Diagnosis Cephalgia ([id number] R51, Discharge, Medical) Plan Condition: Improved. Disposition: Discharged: to home. Patient was given the following educational materials: Migraine Headache, Migraine Headache. Follow up with: Juarez Corado Within 3 to 5 days. Counseled: Patient, Family. DISCHARGE INFORMATION: Discharge Disposition: Home Discharge Location: Home PATIENT EDUCATION INFORMATION Instructions: Migraine Headache Follow-Up: With: Address: When: Juarez [address] [place] [phone] Business (1) Within 3 to 5 days DIAGNOSIS: Cephalgia Patient Understands: Yes - Patient/family/careg iver verbalizes understanding of instructions given Comment: [facility] ED Note - Physicianon 2018 ED Note [...] headache cephalgia. Impression and Plan Diagnosis Cephalgia ([id number] R51, Discharge, Medical) Plan Condition: Improved. Disposition: Discharged: to home. Patient was given the following educational materials: Migraine Headache, Migraine Headache. Follow up with: Juarez Corado Within 3 to 5 days. Counseled: Patient, Family. [Electronically Signed on: 08/21/2018 01:34 EST] Tupa Justen REEVES [Verified on: 08/21/2018 01:34 EST] TuJusten richardson DO [facility] ED Note-Nursingon 08-21-2018 ED Note-Nursing Pt discharged home. Home care and follow-up instructions given to pt. Pt verbalized understanding. No prescriptions given to pt. VS are WNL. No distress observed. Pt ambulated xself to exit with family. [facility] ED Patient Education Noteon 08-21-2018 ED Patient [...] these instructions at home: Medicines ? Take mlbd-gjg-jqlwdgr and prescription medicines only as told by your health care provider. ? Do not drive or use heavy machinery while taking prescription pain medicine. ? To prevent or treat constipation while you are taking prescription pain medicine, your health care provider may recommend that you: ? Drink enough fluid to keep your urine clear or pale yellow. ? Take ikuw-fya-rltcytm or prescription medicines. ? Eat foods that [...] 06/29/2006 Document Revised: 01/16/2017 Document Reviewed: 12/15/2016 [employer] Interactive Patient Education ? 2017 [employer]. [facility] ED Patient Summaryon 019 ED Patient Summary [facility] - Emergency Department [address] [place] [address] PATIENT DISCHARGE INSTRUCTIONS Patient Information Name: GABI COOMBS Age: 48 Years Date of : [birth year] Reason For Visit: Headache; HEADACHE Arrival Time: 08/21/18 01:08:00 Primary Care Physician: Juarez Corado Attending Physician: Justen Crook DO Comment: Visit Diagnosis: Diagnoses This Visit Cephalgia (R51) Headache ([id number]) If you received any narcotics, sedation, or [...] legal documents With: Address: When: Juarez Corado [address] [place] [id number] Business (1) Within 3 to 5 days Medication Information: The exam and treatment you received today in the [facility] Emergency Department were for an urgent problem and are not intended as complete care. It is important for you to follow up with a doctor, nurse practitioner, or physician?s medical claims assistant for ongoing care. If your symptoms [...] so we can reach you if necessary. [facility] Emergency Department has provided you with a complete list of medications post discharge. Please inform your assistant professor of forestry/provider of your visit and for further instruction [...] these instructions at home: Medicines ? Take xjmo-tpm-tsldqql and prescription medicines only as told by your health care provider. ? Do not drive or use heavy machinery while taking prescription pain medicine. ? To prevent or treat constipation while you are taking prescription pain medicine, your health care provider may recommend that you: ? Drink enough fluid to keep your urine clear or pale yellow. ? Take tckt-adu-qqgkrbu or prescription medicines. ? Eat foods that [...] 06/29/2006 Document Revised: 01/16/2017 Document Reviewed: 12/15/2016 [employer] Interactive Patient Education ? 2017 [employer] Viruses or Bacteria What?s got you [...] for Disease Control and Prevention March 2014 [facility] Coding Summaryon 07-22-2018 Coding Summary CODING DATE: 07/22/2018 [facility] STATUS: Home PAYOR: Medicaid HMO ADMIT [...] Kelly Tucker Date Saved: 07/22/2018 03:[address] [facility] Coding Summary CODING DATE: 07/22/2018 [facility] STATUS: Home PAYOR: Medicaid HMO ADMIT [...] Kelly Tucker Date Saved: 07/22/2018 02:[address] [facility] ED Clinical Summaryon 2018 ED Clinical Summary [facility] - Emergency Department [address] [place], [place] [id number] ED Clinical Summary PERSON INFORMATION Name: GABI COOMBS Age: 48 Years Sex: FEMALE : [birth year] MRN: Acct#: Visit Reason: Headache - Recurrent; Headache; HEADACHE Arrival: 07/20/18 01:23:00 Discharge: 07/20/18 02:30:00 LOS: 000 01:07 Check In: 07/20/18 01:23:00 Checkout:07/20/18 02:30:00 Address: [address] [place] [address] PCP: Juarez Corado PROVIDER INFORMATION Provider Role Assigned Unassigned Betzy Fulton RN ED Nurse 07/20/18 01:27:18 Nolan Zheng DO [...] PATIENT EDUCATION INFORMATION Instructions: Recurrent Migraine Headache, Ugob-su-Nsvc Follow-Up: With: Address: When: [place] [address] Business (1) Within 3 to 5 days Comments: home continue with your neurologist and Mr Corado take the Imitrex as directed for headache; since you ran out, we have refilled because you indicated that it worked well for you you are welcomed to return anytime. mary zheng, er physician, leonel sullivan rani DIAGNOSIS: Recurrent headache Patient Understands: Yes - Patient/family/careg iver verbalizes understanding of instructions given Comment: [facility] ED Note - Physicianon 2018 ED Note [...] Medical/ Family/ Social History Medical history: Resolved ([id number]): Resolved. Bypass ([id number]): Resolved. Comments: - Done in 1999 Back (922.31): Resolved. Comments: - surgery in 2011. Surgical history: Gastric bypass ([id number]).. Family history: No family history items have [...] Once. Impression and Plan Diagnosis Recurrent headache (DJA24-DM R51, Discharge, Medical) Plan Condition: Improved. Disposition: Discharged: time 07/20/18 02:17:00. Prescriptions: Launch prescriptions Pharmacy: Imitrex 6 mg/0.5 mL subcutaneous solution (Prescribe): 6 mg = 0.5 mL, SubQ, Once, PRN: as needed for migraine headache, 2 EA, 4 Refill(s). Patient was given the following educational materials: Recurrent Migraine Headache, Vyjl-zf-Xtio. Follow up with: Juarez Corado Within 3 [...] Zheng DO [Verified on: 07/20/2018 05:48 EST] GhazalaNolan DO [facility] ED Note-Nursingon 07-20-2018 ED Note-Nursing Alert and [...] her migraines to make her feel better. [facility] ED Patient Education Noteon 07-20-2018 ED Patient Education Note Education Materials Neurology Recurrent Migraine Headache A migraine headache is very bad, throbbing pain that is usually on one side of your head. Recurrent migraines keep coming back (recurring). Talk with your doctor about what things may bring on (trigger) your migraine headaches. Follow these instructions at home: Medicines ? Take lrbx-xum-kprrent and prescription medicines only as told by [...] on (trigger) your migraine headaches. ? Take zbcf-kck-qvwxyxv and prescription medicines only as told by [...] 04/07/2009 Document Revised: 05/22/2017 Document Reviewed: 05/22/2017 Else[employer]oma Interactive Patient Education ? 2017 [employer] Normal [facility] ED Patient Summaryon 019 ED Patient Summary [facility] - Emergency Department [address] [place] [address] PATIENT DISCHARGE INSTRUCTIONS Patient Information Name: GABI COOMBS Age: 48 Years Date of : [birth year] Reason For Visit: Headache - Recurrent; Headache; HEADACHE Arrival Time: 07/20/18 01:23:00 Primary Care Physician: Juarez Corado Attending Physician: Nolan Zheng DO Comment: Visit Diagnosis: Diagnoses This Visit Headache ([id number]) Headache - Recurrent ([id number]) Recurrent headache (R51) If you received any [...] legal documents With: Address: When: Juarez Corado [address] [place] [address] Business (1) Within 3 to 5 days Comments: home continue with your neurologist and Mr Corado take the Imitrex as directed for headache; since you ran out, we have refilled because you indicated that it worked well for you you are welcomed to return anytime. mary zheng, er physician, leonel saravia Medication Information: The exam and treatment you received today in the [facility] Emergency Department were for an urgent problem and are not intended as complete care. It is important for you to follow up with a doctor, nurse practitioner, or physician?s medical claims assistant for ongoing care. If your symptoms [...] so we can reach you if necessary. [facility] Emergency Department has provided you with a complete list of medications post discharge. Please inform your assistant professor of forestry/provider of your visit and for further instruction on these medications. Any specific questions regarding your chronic medications and dosages should be discussed with your primary care physician(s) and/or pharmacist. Medications That Were Updated - Follow Below Instructions [facility] [facility], [address] [place], [place] [id number], [phone] Updated: SUMAtriptan (Imitrex 6 mg/0.5 mL subcutaneous [...] these instructions at home: Medicines ? Take rssj-uyb-dlybuaj and prescription medicines only as told by [...] on (trigger) your migraine headaches. ? Take zkxx-flb-kwjzdig and prescription medicines only as told by [...] 04/07/2009 Document Revised: 05/22/2017 Document Reviewed: 05/22/2017 [employer] Interactive Patient Education ? 2017 [employer] Viruses or Bacteria What?s got you [...] for Disease Control and Prevention March 2014 [facility] Coding Summaryon 04-09-2018 Coding Summary CODING DATE: 04/09/2018 [facility] STATUS: Home PAYOR: Medicaid HMO ADMIT [...] Ryan Mchugh' Date Saved: 04/09/2018 11:[address] [facility] Coding Summary CODING DATE: 04/09/2018 [facility] STATUS: Home PAYOR: Medicaid HMO ADMIT [...] Mchugh' Revised Date Saved: 03/31/2018 12:[address] [facility] Coding Queryon 04-02-2018 Coding Query Can you please finalize your chart when complete? This is the second request sent to you for this account. Thanks. [Electronically Signed on: 04/05/2018 07:58 EDT] Nolan Zheng DO [Verified on: 04/05/2018 07:58 EDT] Nolan Zheng DO [Transcribed on: 04/02/2018 09:47 EDT] [facility] Coding Queryon 03-31-2018 Coding Query Can you please finalize your chart when complete? Thanks. [Electronically Signed on: 04/09/2018 00:04 EDT] Nolan Zheng DO [Verified on: 04/09/2018 00:04 EDT] Nolan Zheng DO [Transcribed on: 03/31/2018 12:28 EDT] [facility] Coding Query Can you please finalize your chart when finished? Thanks. [Electronically Signed on: 04/01/2018 10:59 EDT] TIFFANIE CASTRO [Verified on: 04/01/2018 10:59 EDT] TIFFANIE CASTRO [Transcribed on: 03/31/2018 12:27 EDT] [facility] ED Clinical Summaryon 2017 ED Clinical Summary [facility] - Emergency Department [address] [place] [id number] ED Clinical Summary PERSON INFORMATION Name: GABI COOMBS Age: 47 Years Sex: FEMALE : [birth year] MRN: Acct#: Visit Reason: Headache - Recurrent; MONTOYA - Headache; HEADACHE Arrival: 03/05/18 20:29:00 Discharge: 03/05/18 21:25:00 LOS: 000 00:56 Check In: 03/05/18 20:29:00 Checkout:03/05/18 21:25:00 Address: [address] [facility] [address] PCP: Juarez Corado PROVIDER INFORMATION Provider Role [...] Adult Follow-Up: With: Address: When: Juarez Corado [place] [phone] Business (1) Within 3 to 5 days Comments: home call Dr Corado on Thursday for recheck apt ask Dr Corado about the injectable form of Imitrex--it works very well You are welcomed to return anytime. T H GHAZALA< ER PHYSICIAN< H Napoleon Rani DIAGNOSIS: Recurrent occipital headache Patient Understands: Yes - Patient/family/careg iver verbalizes understanding of instructions given Comment: [facility] ED Note - Physicianon 2017 ED Note [...] Medical/ Family/ Social History Medical history: Resolved ([id number]): Resolved. Bypass ([id number]): Resolved. Comments: - Done in 1999 Back (244.29): Resolved. Comments: - surgery in 2011. Surgical history: Gastric bypass ([id number]).. Family history: No family history items have [...] Impression and Plan Diagnosis Recurrent occipital headache ([id number]-NN R51, Discharge, Medical) Plan Condition: Improved. Disposition: [...] on: 04/05/2018 07:58 EDT] Nolan Zheng DO [facility] ED Note - Physician Patient: GABI COOMBS [...] [Verified on: 04/01/2018 10:59 EDT] TIFFANIE CASTRO [facility] ED Patient Education Noteon 03-05-2018 ED Patient [...] HOME CARE INSTRUCTIONS Managing Pain ? Take ibak-diq-rabixfs and prescription medicines only as told by [...] 06/29/2006 Document Revised: 03/19/2016 Document Reviewed: 10/22/2015 [employer]ell Interactive Patient Education ? 2017 [employer]. [facility] ED Patient Summaryon 018 ED Patient Summary [facility] - Emergency Department [address] [place], [place] [id number] PATIENT DISCHARGE INSTRUCTIONS Patient Information Name: GABI COOMBS Age: 47 Years Date of : [birth year] Reason For Visit: Headache - Recurrent; MONTOYA - Headache; HEADACHE Arrival Time: 03/05/18 20:29:00 Primary Care Physician: Juarez Corado Attending Physician: Nolan Zheng DO Comment: Visit Diagnosis: Diagnoses This Visit MONTOYA - Headache ([id number]) Headache - Recurrent ([id number]) Recurrent occipital headache (R51) If you received [...] legal documents With: Address: When: Juarez Corado [address] [place] [phone] Business (1) Within 3 to 5 days Comments: home call Dr Corado on Thursday for recheck apt ask Dr Corado about the injectable form of Imitrex--it works very well You are welcomed to return anytime. T H GHAZALA< ER PHYSICIAN< H B [facility] Medication Information: The exam and treatment you received today in the [facility] Emergency Department were for an urgent problem and are not intended as complete care. It is important for you to follow up with a doctor, nurse practitioner, or physician?s medical claims assistant for ongoing care. If your symptoms [...] so we can reach you if necessary. [facility] Emergency Department has provided you with a complete list of medications post discharge. Please inform your assistant professor of forestry/provider of your visit and for further instruction [...] HOME CARE INSTRUCTIONS Managing Pain ? Take tyvw-map-procqit and prescription medicines only as told by [...] 06/29/2006 Document Revised: 03/19/2016 Document Reviewed: 10/22/2015 [employer] Interactive Patient Education ? 2017 [employer]. Viruses or Bacteria What?s got you sick? [...] Disease Control and Prevention March 2014 [facility] Encounters Encounter Date Encounter Type Care Provider Facility Start: 03-02-2024 End: 03-02-2024 ambulatory [facility] Start: 02-04-2024 End: 03-13-2024 ambulatory [facility] Start: 02-03-2024 End: 02-03-2024 [facility] Start: 12-14-2023 End: 12-14-2023 ambulatory [facility] Start: 12-14-2023 End: 12-14-2023 ambulatory [facility] Start: 12-17-[address] MYLES PACHECO . Facility: Start: 01-31-2019 End: 02-01-2019 Patient encounter procedure [facility] Start: 10-13-2018 End: 10-16-2018 Patient encounter procedure [facility] Start: 10-12-2018 End: 10-15-2018 Patient encounter procedure [facility] Start: 10-11-2018 End: 10-14-2018 Patient encounter procedure [facility] Start: 09-27-2018 End: 09-28-2018 Patient encounter procedure [facility] Procedures Date Procedure Procedure Detail Performing Clinician Start: 01-31-2019 25 hydroxy includes fractions if performed KANCHAN MOOSA Start: 01-31-2019 Assay of free thyroxine KANCHAN MOOSA Start: 01-31-2019 Assay of thyroglobulin KANCHAN MOOSA Start: 01-31-2019 Assay of thyroid sti mulating hormone tsh KANCHAN MOOSA Start: 01-31-2019 Thyroglobulin antibody KANCHAN MOOSA Start: 10-13-2018 Thyroid carcinoma me tastases img whole body KANCHAN MOOSA Start: 09-27-2018 25 hydroxy includes fractions if performed KANCHAN MOOSA Payers Date Payer Category Payer Medicaid [id number] 1970 Unknown [id number] 2.16.8 [id number] 1970 Unknown [id number] 2.16.8 [id number] 1968 Unknown [id number] 2.16.8 40.1.474859.3.579.2.175 1968 Unknown [id number] 2.16.8 40.1.969041.3.579.2.175 1968 Unknown [id number] 2.16.8 40.1.026767.3.579.2.175 1968 Unknown [id number] 2.16.8 40.1.743169.3.579.2.176 1968 Unknown [id number] 2.16.8 40.1.007827.3.579.2.176 1968 Unknown [id number] 2.16.84 0.1.279398.3.579.2.593 1968 Unknown [id number] 2.16.8 40.1.883889.3.579.2.1286 1968 Unknown [id number] 2.16.8 40.1.730321.3.579.2.1286 1968 Unknown [id number] 2.16.8 40.1.555462.3.579.2.1286 1968 Unknown [id number] 2.16.8 40.1.948847.3.579.2.1286 1968 Unknown [id number] 2.16.8 40.1.988613.3.579.2.1286 1968 Unknown [id number] 2.16.8 40.1.271734.3.579.2.1286 1959 Unknown [id number] Summary Purpose Family History No Family History [...] section and content) DATE CREATED AUTHOR 10/17/2018 [facility] DATE CREATED AUTHOR AUTHOR'S ORGANIZ ATION 02/01/2019 [facility] DATE CREATED AUTHOR AUTHOR'S ORGANIZ ATION 02/25/2019 [facility] DATE CREATED AUTHOR AUTHOR'S ORGANIZ ATION 12/19/2022 [facility] DATE CREATED AUTHOR AUTHOR'S ORGANIZ ATION 12/15/2023 [facility] DATE CREATED AUTHOR AUTHOR'S ORGANIZ ATION 12/17/2023 [facility] DATE CREATED AUTHOR AUTHOR'S ORGANIZ ATION 03/13/2024 [facility] FOR RECORDS PERTAINING TO PATIENTS WHO ARE [...] BE BASED ON THE PRIMARY CLINICAL RECORDS. [facility] [employer] [facility]. provides no warranty or guarantee of the accuracy or completeness of information in this document.
[2024-04-15 04:12] LABS: Vitamin B12 327 pg/mL (232-1245)
== END 2024-04-14 10:19 | disposition home or self-care (01) ==
LOC: LAB 10:22
PROVIDERS: PCP Nurse Practitioner; Visit Provider Nurse Practitioner
DX: E53.8 Deficiency of other specified B group vitamins (principal)
CPT/HCPCS: 36415; 82607